=== PATIENT | female | born 1975 | race Caucasian/White ===

== ENCOUNTER 2019-11-04 15:49 | Emergency (ER) | payer OTHER, SELFPAY ==
--- NOTE | ~2019-11-04 | XR_ITS ---
XR lumbar spine 2-3V DATE: 11/04/2019 16:23 INDICATION: Patient fell down 4 steps. Mid low back pain. TECHNIQUE: AP, lateral, coned lateral lumbosacral views COMPARISON: 07/03/2018 CT lumbar spine FINDINGS: There is mild degenerative change, primarily mild to moderate degenerative disc disease at L1-2. There is degenerative spurring in the lower thoracic spine. No fracture or bone destruction or spondylolisthesis is evident. The lumbar and included lower thorac ic pedicles are intact. The sacroiliac joints are intact. Surgical clips overlie the right upper quadrant. IMPRESSION: Mild degenerative changes; no fracture detected Reviewed, dictated and finalized at location B. STITCHER
--- NOTE | 2019-11-04 16:00 | ED.FALL ---
HPI - Fall General Chief Complaint: Fall Stated Complaint: back pain Time Seen by Provider: 11/04/19 16:01 Source: patient and RN notes reviewed Mode of arrival: ambulatory Limitations: no limitations History of Present Illness HPI Narrative: This is a 44 years old female presents to the office for an evaluation of back pain s/p fall about 30minutes prior to arrival. She slipped on ice, on wooden stairs and injured her back. States, her lower back fell against the wooden stairs. 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 Denies urine or bowel incontinence. Denies numbness or tingling in the lower leg. Admits to history of recurrent chronic back pain controlled with Tylenol.She supposed to go to work at 5pm to day however she does not think she can go in.She works at the [employer]. No treatment prior to arrival. Related Data Home Medications Medication Instructions Recorded Confirmed bupropion HCl mg PO 10/16/19 ergocalciferol (vitamin D2) 10/16/19 levothyroxine 10/16/19 simvastatin mg 10/16/19 Allergies Allergy/AdvReac Type Severity Reaction Status Date / Time No Known Allergies Allergy Unverified 04/23/19 19:03 Review of Systems Review of Systems: Narrative: CONSTITUTIONAL: Denies feeling; except pain CARDIOVASCULAR: Denies chest pain RESPIRATORY: Denies difficulty breathing GASTROINTESTINAL: Denies nauseated feeling GENITOURINARY: Denies urinary/bowel symptoms SKIN: Denies skin trauma/bleeding MUSCULOSKELETAL: Reports acute back pain NEUROLOGIC: Denies lightheaded prior to accident PMFSH Past Medical History Medical History (Updated 11/04/19 @ 16:39 by SULEMAN Regalado) Hypothyroidism Mild intermittent asthma without complication Overweight (11/24/15) Plantar fasciitis, bilateral Vitamin D deficiency Surgical History Surgical History (Updated 11/04/19 @ 16:36 by SULEMAN Regalado) Hx of cholecystectomy Hx of hysterectomy Hx of tubal ligation Social History Social History Smoking status: Never smoker Alcohol intake: never Comments At time of signature, I agree with nursing past medical, surgical, social and family history. Exam Narrative: Exam Narrative: GENERAL: This is a well-nourished, well-developed patient, in no apparent distress. HEAD: Atraumatic. Normocephalic. No temporal or scalp tenderness. CARDIOVASCULAR: Regular rate and rhythm without murmurs, gallops, or rubs. RESPIRATORY: Clear to auscultation. Breath sounds equal bilaterally. No wheezes, rales, or rhonchi. SKIN: warm, intact with no suspicious lesions/bruise on affected area. NEURO: awake, alert, and oriented to person, place and time. There were no obvious focal neurologic abnormalities. Anatalgia gait noted BACK: Tenderness in the paraspinous muscles in the lumbar area. No tenderness over the spinous processes of the lumbar vertebrae. LEGS: Normal strength including dorsi-flexion and plantar flexion of the feet. Negative bilateral straight leg raising, normal and symmetrical knee reflexes. Course Vital Signs Vital signs: Vital Signs Temperature 98.8 F 11/04/19 16:01 Pulse Rate 98 11/04/19 16:01 Respiratory Rate 18 11/04/19 16:01 Blood Pressure 127/83 11/04/19 16:01 Pulse Oximetry 99 11/04/19 16:01 Temperature 98.8 F 11/04/19 16:01 Pulse Rate 98 11/04/19 16:01 Respiratory Rate 18 11/04/19 16:01 Blood Pressure 127/83 11/04/19 16:01 Pulse Oximetry 99 11/04/19 16:01 MDM - Fall MDM Narrative Medical decision making narrative: I offered Toradol for pain controlled; patient opt to take Tylenol instead. The instructions also include specific and strict return/GO TO THE ER as well as f/u information. All questions have been answered, and the patient deny any further questions with discharge and discharge plan. Differential Diagnosis Differential diagnosis: Likely compression fracture and other (M
[2019-11-04 16:01] VITALS: BP 127/83; PULSE 98; RESP 18; TEMP 37.1; O2SAT 99
[2019-11-04] MEDS: ACETAMINOPHEN 500 MG TABLET 1000 MG PO (16:28)
== END 2019-11-04 16:58 | disposition home or self-care (01) ==
PROVIDERS: Emergency Provider Nurse Practitioner; PCP Nurse Practitioner Family
DX: M54.5 Low back pain (principal); W00.1XXA Fall from stairs and steps due to ice and snow, initial encounter; E03.9 Hypothyroidism, unspecified; J45.20 Mild intermittent asthma, uncomplicated; M51.36 Other intervertebral disc degeneration, lumbar region; E55.9 Vitamin D deficiency, unspecified
CPT/HCPCS: 72100; 99213; A9270; G0463

== ENCOUNTER 2020-01-04 15:18 | Emergency (ER) | payer OTHER, SELFPAY ==
[2020-01-04 15:29] VITALS: BP 147/82; PULSE 87; RESP 20; TEMP 36.4; O2SAT 99
--- NOTE | 2020-01-04 16:01 | ED.GENADULT ---
HPI - General Adult General Chief complaint: Extremity Injury, Lower Stated complaint: L/knee pain Time Seen by Provider: 01/04/20 16:02 Source: patient and RN notes reviewed Mode of arrival: ambulatory Limitations: no limitations History of Present Illness HPI narrative: 44-year-old female presents with complains of left anterior knee pain and swelling for 1 day. Tylenol 500mG this morning with no relief. No radiation of pain. No numbness or tingling, or bleeding. No loss of mobility. Exacerbating factor consist of bearing weight, standing, and walking. No fever or chills. Denies nausea, vomiting, and abdominal pain. Remains active. Yazmin denies being , Hysterectomy 04/2006. Some parts of this dictation were generated by voice recognition software and may contain typographical and/or grammatical inaccuracies. Related Data Home Medications Medication Instructions Recorded Confirmed bupropion HCl 150 mg PO DAILY 10/16/19 01/04/20 ergocalciferol (vitamin D2) 50,000 unit PO DAILY 10/16/19 01/04/20 levothyroxine 25 mcg PO DAILY 10/16/19 01/04/20 simvastatin 20 mg PO DAILY 10/16/19 01/04/20 hydroxyzine pamoate 25 mg PO BID PRN 01/04/20 01/04/20 Allergies Allergy/AdvReac Type Severity Reaction Status Date / Time No Known Allergies Allergy Verified 01/04/20 15:34 Review of Systems Review of Systems: Narrative: CONSTITUTIONAL: Denies fever, chills, sweats. EYES: Denies visual changes, redness, discharge. ENT: Denies rhinorrhea, congestion, sore throat, otalgia. CARDIOVASCULAR: Denies chest pain, palpitations, edema. RESPIRATORY: Denies dyspnea, wheezing, cough. GASTROINTESTINAL: Denies abdominal pain, nausea, vomiting, diarrhea. GENITOURINARY: Denies dysuria, hematuria, abnormal discharge SKIN: Denies rash or itching. MUSCULOSKELETAL: Denies acute back pain or myalgia. Complains of Left anterior knee pain and swelling. NEUROLOGIC: Denies numbness, or focal weakness. PSYCHIATRIC: Denies anxiety or depression. All other systems reviewed & are unremarkable except as noted in HPI and below. [facility] Past Medical History Medical History Hypothyroidism Mild intermittent asthma without complication Overweight (11/24/15) Plantar fasciitis, bilateral Vitamin D deficiency Surgical History Surgical History Hx of cholecystectomy Hx of hysterectomy Hx of tubal ligation Family History Family History Sibling Family history of thyroid disease Patient's brother is Father Hypertension Cerebrovascular accident Mother Patient's mother is Other Family history of arthritis Family history of blood dyscrasia Family history of malignant neoplasm Family history of seizure disorder Social History Social History (Updated 01/04/20 @ 16:14 by SULEMAN Baldwin) Smoking status: Never smoker Second hand tobacco smoke exposure: Yes Alcohol intake: former Substance use: never Living arrangements: with family Occupation/Education: occupation Gender identity (if verbalized by the patient): Female Comments At time of signature, agree with nurse past medical, surgical, social, and family history. There is no relevant family history pertinent to the presenting complaint. Exam Narrative: Exam Narrative: GENERAL: This is a well-nourished, well-developed patient, in no apparent distress. Talks in full sentences and ambulates with LT antalgic gait without dyspnea. HEAD: normocephalic, atraumatic. EYES: PERRL. Sclera clear/white. Vision is grossly intact. CARDIOVASCULAR: Regular rate and rhythm without murmurs, gallops, or rubs. RESPIRATORY: Clear to auscultation. Breath sounds equal bilaterally. No wheezes, rales, or rhonchi. GASTROINTESTINAL: Abdomen soft, non-tender, nondistende
== END 2020-01-04 16:29 | disposition home or self-care (01) ==
PROVIDERS: Emergency Provider Nurse Practitioner Family; PCP Nurse Practitioner Family
DX: M25.562 Pain in left knee (principal); E03.9 Hypothyroidism, unspecified; E55.9 Vitamin D deficiency, unspecified
CPT/HCPCS: 99213; G0463

== ENCOUNTER 2020-03-09 19:48 | Emergency (ER) | payer OTHER, SELFPAY ==
--- NOTE | ~2020-03-09 | XR_ITS ---
EXAMINATION: XR chest 2V DATE: 03/09/2020 20:10 INDICATION: Left chest pain. TECHNIQUE: Frontal and lateral views of the chest were obtained. COMPARISON: Chest single view 08/08/2018, CT thoracic spine 07/03/2018 FINDINGS: The chest demonstrates clear lungs without pneumonia, pleural effusion, or pneumothorax. Th e heart size is normal. Surgical clips in the right upper quadrant are likely from cholecystectomy. IMPRESSION: 1. No acute cardiopulmonary disease. Reviewed, dictated and finalized at location A.
--- NOTE | 2020-03-09 19:49 | ECG_ITS ---
Measurements Intervals [place] Rate: 70 P: 18 RI: 149 QRS: 11 QRSD: 86 T: 29 QT: 347 QTc: 377 Interpretive Statements SINUS RHYTHM BASELINE WANDER- II, III NORMAL ECG Electronically Signed On 03-10-2020 6:59:12 CDT by Gray Nelson D.O.
[2020-03-09 19:51] VITALS: BP 117/75; PULSE 79; RESP 16; TEMP 36.3; O2SAT 100
[2020-03-09] MEDS: ASPIRIN 81 MG CHEWABLE TABLET 324 MG PO (20:04)
[2020-03-09 20:06] LABS: Basophils Percent Auto 0.5 % (0.2-1.2); Eosinophils Absolute Auto 0.2 K/mm3 (0-0.3); Eosinophils Percent Auto 2.2 % (0-4.4); Hematocrit 44.6 % (37.0-47.0); Immature Granulocyte Absolute 0.01 K/mm3 (0.00-0.031); Immature Granulocyte Percent A 0.1 % (0-0.5); Lymphocytes Absolute Auto 2.85 K/mm3 (0.9-3.2); Lymphocytes Percent Auto 32.5 % (18.3-44.2); Mean Corpuscular HGB Conc 31.4 g/dl (32-36); Mean Corpuscular Hemoglobin 29.9 pg (26-34); Mean Corpuscular Volume 95.1 fl (80-100); Monocytes Absolute Auto 0.5 K/mm3 (0.1-0.6); Monocytes Percent Auto 6.1 % (2.6-8.5); Neutrophils Absolute Auto 5.1 K/mm3 (1.3-6.7); Neutrophils Percent Auto 58.6 % (45.5-73.1); Platelet Count Result 363 k/mm3 (150-375); Red Blood Count 4.69 M/mm3 (4.2-5.4); Red Cell Distribution Width 13.9 % (11.5-14.5); White Blood Count 8.8 K/mm3 (4.5-10.0)
[2020-03-09 20:16] LABS: Partial Thromboplastin Time 27.8 SECONDS (22.3-36.8)
[2020-03-09 20:19] LABS: Blood Urea Nitrogen 14 mg/dL (7-17); Calcium 11.2 mg/dL (8.4-10.2); Carbon Dioxide 28 mmol/L (22-30); Chloride 105 mmol/L (98-107); Estimated Glomerular Filt Rate > 60; Glucose 97 mg/dL (65-105); Potassium 4.9 mmol/L (3.4-5.0); Sodium 138 mmol/L (137-145)
[2020-03-09 20:21] LABS: INR 0.9; Prothrombin Time 11.6 Seconds (11.1-14.7)
[2020-03-09 20:30] LABS: Troponin I < 0.012 ng/mL (0.000-0.034)
--- NOTE | 2020-03-09 21:49 | ED.CHESTPAIN ---
HPI - Chest Pain General Chief Complaint: Chest Pain Stated Complaint: arm and chest pain Time Seen by Provider: 03/09/20 21:49 Related Data Home Medications Medication Instructions Recorded Confirmed bupropion HCl 150 mg PO DAILY 10/16/19 01/04/20 ergocalciferol (vitamin D2) 50,000 unit PO DAILY 10/16/19 01/04/20 levothyroxine 25 mcg PO DAILY 10/16/19 01/04/20 simvastatin 20 mg PO DAILY 10/16/19 01/04/20 hydroxyzine pamoate 25 mg PO BID PRN 01/04/20 01/04/20 Allergies Allergy/AdvReac Type Severity Reaction Status Date / Time No Known Allergies Allergy Verified 01/04/20 15:34 [facility] Social History Social History (Updated 01/04/20 @ 16:14 by SULEMAN Baldwin) Smoking status: Never smoker Second hand tobacco smoke exposure: Yes Alcohol intake: former Substance use: never Gender identity (if verbalized by the patient): Female Course Vital Signs Vital signs: Vital Signs Temperature 36.3 C L 03/09/20 19:51 Pulse Rate 79 03/09/20 19:51 Respiratory Rate 16 03/09/20 19:51 Blood Pressure 117/75 03/09/20 19:51 Pulse Oximetry 100 03/09/20 19:51 Temperature 36.3 C L 03/09/20 19:51 Pulse Rate 79 03/09/20 19:51 Respiratory Rate 16 03/09/20 19:51 Blood Pressure 117/75 03/09/20 19:51 Pulse Oximetry 100 03/09/20 19:51 MDM - Chest Pain Lab Data Result diagrams: 03/09/20 20:00 03/09/20 20:00 Labs: Lab Results 03/09/20 03/09/20 03/09/20 Range/Units 20:00 20:00 20:00 WBC 8.8 (4.5-10.0) K/mm3 RBC 4.69 (4.2-5.4) M/mm3 Hgb 14.0 (12.0-15.0) g/dL Hct 44.6 (37.0-47.0) % MCV 95.1 (80-100) fl MCH 29.9 (26-34) pg MCHC 31.4 L (32-36) g/dl RDW 13.9 (11.5-14.5) % Plt Count 363 (150-375) k/mm3 MPV 9.0 (7.4-10.4) fl Immature Gran % (Auto) 0.1 (0-0.5) % Neut % (Auto) 58.6 (45.5-73.1) % Lymph % (Auto) 32.5 (18.3-44.2) % Price % (Auto) 6.1 (2.6-8.5) % Eos % (Auto) 2.2 (0-4.4) % Baso % (Auto) 0.5 (0.2-1.2) % Lymph # (Auto) 2.85 (0.9-3.2) K/mm3 Price # (Auto) 0.5 (0.1-0.6) K/mm3 Eos # (Auto) 0.2 (0-0.3) K/mm3 Baso # (Auto) 0.0 (0.0-0.1) K/mm3 Abs Immat Gran (auto) 0.01 (0.00-0.031) K/mm3 Absolute Neuts (auto) 5.1 (1.3-6.7) K/mm3 Absolute Nucleated RBC 0.0 (0.0-0.012) K/mm3 Nucleated RBC % 0.0 (0.0-0.2) % PT 11.6 (11.1-14.7) Seconds INR 0.9 APTT 27.8 (22.3-36.8) SECONDS Sodium 138 (137-145) mmol/L Potassium 4.9 (3.4-5.0) mmol/L Chloride 105 (98-107) mmol/L Carbon Dioxide 28 (22-30) mmol/L BUN 14 (7-17) mg/dL Creatinine 0.90 (0.7-1.0) mg/dL Estim Creat Clear Calc Not Reportable Estimated GFR > 60 (59 - ) Glucose 97 (65-105) mg/dL Calcium 11.2 H (8.4-10.2) mg/dL Troponin I < 0.012 (0.000-0.034) ng/mL ECG Data EKG #1: ECG completion date: 03/09/20 ECG completion time: 19:59 Interpretation: Rate 70, sinus rhythm, intervals normal, normal axis, no ST segment elevation or depression, baseline wander lead II, 3, normal EKG Discharge Plan Discharge Prescriptions: No Action levothyroxine 25 mcg tablet 25 mcg PO DAILY RF: 0 simvastatin 20 mg tablet 20 mg PO DAILY RF: 0 ergocalciferol (vitamin D2) 1,250 mcg (50,000 unit) capsule 50,000 unit PO DAILY RF: 0 bupropion HCl 150 mg tablet extended release 24 hr 150 mg PO DAILY RF: 0 hydroxyzine pamoate 25 mg Capsule 25 mg PO BID PRN (Reason: Anxiety) RF: 0
--- NOTE | 2020-03-09 21:57 | ED.CHESTPAIN ---
HPI - Chest Pain General Chief Complaint: Chest Pain <ROBSON Ng Last Filed: 03/09/20 22:02> Stated Complaint: arm and chest pain <ROBSON Ng Last Filed: 03/09/20 22:02> Time Seen by Provider: 03/09/20 21:49 <ROBSON Ng Last Filed: 03/09/20 22:02> Source: patient <ROBSON Ng Last Filed: 03/09/20 22:02> Mode of arrival: ambulatory <ROBSON Ng Last Filed: 03/09/20 22:02> Limitations: no limitations <ROBSON Ng Last Filed: 03/09/20 22:02> History of Present Illness HPI narrative: Patient is a 45-year-old female who presents to emergency department for evaluation of left-sided chest pain and arm pain for the last 2 days noting aching pain worse with activity and movement 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 Pain is worse with position activity and movement is noted patient denies any cardiac history has not taken anything for her symptoms. . On arrival patient in the room in no distress denies radicular symptoms or paresthesias or any recent illness or sick contact <ROBSON Ng Last Filed: 03/09/20 22:02> Related Data Home Medications: Home Medications Medication Instructions Recorded Confirmed bupropion HCl 150 mg PO DAILY 10/16/19 01/04/20 ergocalciferol (vitamin D2) 50,000 unit PO DAILY 10/16/19 01/04/20 levothyroxine 25 mcg PO DAILY 10/16/19 01/04/20 simvastatin 20 mg PO DAILY 10/16/19 01/04/20 hydroxyzine pamoate 25 mg PO BID PRN 01/04/20 01/04/20 <ROBSON Ng Last Filed: 03/09/20 22:02> Allergies/Adverse Reactions: Allergies Allergy/AdvReac Type Severity Reaction Status Date / Time No Known Allergies Allergy Verified 01/04/20 15:34 <ROBSON Ng Last Filed: 03/09/20 22:02> Review of Systems Review of Systems: All systems reviewed & are unremarkable except as noted in HPI and below <Dennis Delgado PA-C - Last Filed: 03/09/20 22:02> [facility] Past Medical History Medical History: Medical History Hypothyroidism Mild intermittent asthma without complication Overweight (11/24/15) Plantar fasciitis, bilateral Vitamin D deficiency <Dennis Delgado PA-C - Last Filed: 03/09/20 22:02> Surgical History Surgical History: Surgical History Hx of cholecystectomy Hx of hysterectomy Hx of tubal ligation <Dennis Delgado PA-C - Last Filed: 03/09/20 22:02> Social History Social History: Social History Smoking status: Never smoker Second hand tobacco smoke exposure: Yes Alcohol intake: former Substance use: never Gender identity (if verbalized by the patient): Female <Dennis Delgado PA-C - Last Filed: 03/09/20 22:02> Exam Narrative: Exam Narrative: GENERAL: Well-appearing, well-nourished, and in no acute distress. HEAD: Normocephalic, atraumatic. EYES: PERRLA and EOMI. ENT: Nares clear, no rhinorrhea or epistaxis. Mucous membranes moist. Oropharynx without tonsillar hypertrophy exudate or other lesions. CHEST: Clear to auscultation. No respiratory distress. No wheezes rales or rhonchi. Reproducible left chest wall tenderness to palpation HEART: Regular rate and rhythm. No murmur heard. Normal peripheral pulses. ABDOMEN: Soft, nontender, nondistended, normal active bowel sounds. EXTREMITIES: Normal range of motion. No edema. SKIN: Warm, dry, no rash. NEURO: No focal deficits. Alert and oriented x3. Cranial nerves II through XII grossly intact PSYCH: Normal mood and affect. <Dennis Delgado PA-C - Last Filed: 03/09/20 22:02> Course Course Emergency Course: Patient in the room at this time in no distress aware of case findings treatment plan and diagnosis <Dennis Delgado PA-C - Last Filed: 03/09/20 22:02> Vital Sign
[2020-03-09] MEDS: KETOROLAC (*BKC) 60 MG/2 ML VIAL IM (22:03)
== END 2020-03-09 22:45 | disposition home or self-care (01) ==
PROVIDERS: Emergency Provider Emergency Medicine; PCP Nurse Practitioner Family
DX: R07.9 Chest pain, unspecified (principal); E03.9 Hypothyroidism, unspecified; J45.20 Mild intermittent asthma, uncomplicated; E55.9 Vitamin D deficiency, unspecified; Z77.22 Contact with and (suspected) exposure to environmental tobacco smoke (acute) (chronic)
CPT/HCPCS: 36415; 71046; 80048; 84484; 85025; 85610; 85730; 93005; 96372; 99284; A9270; J1885

== ENCOUNTER 2020-03-13 08:38 | Emergency (ER) | payer OTHER, SELFPAY ==
[2020-03-13 08:40] VITALS: BP 134/79; PULSE 97; RESP 20; TEMP 36.6; O2SAT 97
--- NOTE | 2020-03-13 08:45 | ECG_ITS ---
Measurements Intervals [place] Rate: 73 P: 19 UT: 164 QRS: 5 QRSD: 90 T: 35 QT: 363 QTc: 402 Interpretive Statements SINUS RHYTHM DELAYED PRECORDIAL R/S TRANSITION BORDERLINE ECG Electronically Signed On 03-13-2020 16:47:37 CDT by Gray Nelson D.O.
[2020-03-13 08:57] LABS: Basophils Absolute Auto 0.02 K/mm3 (0.00-0.10); Basophils Percent Auto 0.3 % (0.0-1.0); Eosinophils Absolute Auto 0.11 K/mm3 (0.02-0.50); Eosinophils Percent Auto 1.7 % (1.0-6.0); Hematocrit 46.3 % (35.0-49.0); Hemoglobin 14.8 g/dL (12.0-15.0); Immature Granulocyte Absolute 0.02 K/mm3 (0.00-0.00); Immature Granulocyte Percent A 0.3 % (0.0-0.0); Lymphocytes Absolute Auto 1.61 K/mm3 (1.10-4.50); Lymphocytes Percent Auto 24.9 % (18.0-42.0); Mean Corpuscular Volume 93.9 fL (78.0-102.0); Monocytes Absolute Auto 0.39 K/mm3 (0.10-0.90); Neutrophils Absolute Auto 4.3 K/mm3 (1.7-7.2); Neutrophils Percent Auto 66.8 % (50.0-70.0); Platelet Count Result 354 K/mm3 (150-420); Red Blood Count 4.93 M/mm3 (4.20-5.40); Red Cell Distribution Width 13.3 % (11.6-14.4); White Blood Count 6.5 K/mm3 (4.8-10.8)
--- NOTE | 2020-03-13 09:02 | ED.CHESTPAIN ---
HPI - Chest Pain General Chief Complaint: Chest Pain Stated Complaint: Chest Pain Source: patient and RN notes reviewed Mode of arrival: ambulatory Limitations: no limitations History of Present Illness HPI narrative: Patient is here with complaints of left chest and arm pain for the last 6 days . Seen at [place] [facility] with a negative cardiac work up 4 days ago , has not picked up her scripts yet complaint: chest pain Onset: during rest and during exertion Pain radiation: left arm Related Data Home Medications Medication Instructions Recorded Confirmed Unable to Obtain Home Medications 03/13/20 03/13/20 bupropion HCl 150 mg PO BID 03/13/20 03/13/20 levothyroxine 25 mcg PO DAILY 03/13/20 03/13/20 simvastatin 20 mg PO DAILY 03/13/20 03/13/20 Allergies Allergy/AdvReac Type Severity Reaction Status Date / Time No Known Allergies Allergy Verified 03/13/20 08:56 Review of Systems Review of Systems: All systems reviewed & are unremarkable except as noted in HPI and below Constitutional: Constitutional: Reports as per HPI Cardiovascular: Cardiovascular: Reports as per HPI, Reports no additional cardiovascular complaints and Reports chest pain Respiratory: Respiratory: Reports no additional respiratory complaints Gastrointestinal: Gastrointestinal: Reports no additional gastrointestinal complaints Musculoskeletal: Musculoskeletal: Reports no additional musculoskeletal complaints [facility] Past Medical History Medical History (Updated 03/13/20 @ 10:22 by Nyasia Baig MD) Hypercholesteremia Hypothyroidism Social History Social History (Updated 03/13/20 @ 10:07 by Nyasia Baig MD) Social History: Nonsmoker . Lives alone Smoking status: Never smoker Substance use: unknown Living arrangements: alone Exam Const: General: no acute distress and alert Orientation/consciousness: patient oriented x3 HENMT: Head: normal to inspection Neck: Neck: normal visual inspection and no lymphadenopathy Chest: Chest palpation & inspection: normal inspection of the chest and tenderness pectoral muscle and costochondral junction Resp: Effort & Inspection: normal respiratory effort Auscultation: clear to auscultation bilaterally Cardio: Rate: regular rate Rhythm: regular rhythm GI: Auscultation: normal bowel sounds Skin: General skin exam: normal color Rashes: no rashes Neuro: General: patient oriented x3, moves all extremities, no focal motor deficits and CN's II-XI intact bilaterally Speech: normal speech Gait exam (Neuro): Normal gait present Psych: Appearance: grossly normal Mental Status: mental status grossly normal Affect: Anxious affect present Thought content: Yes Normal thought content present Course Course Emergency Course: Patient has some relief after toradol . She is aware of the discharge plans. Reevaluation(s) Reevaluation #1: Pain better . Date: 03/13/20 Time: 10:15 Vital Signs Vital signs: Vital Signs Temperature 36.6 C 03/13/20 08:40 Pulse Rate 97 03/13/20 08:40 Respiratory Rate 20 03/13/20 08:40 Blood Pressure 134/79 03/13/20 08:40 Pulse Oximetry 97 03/13/20 08:40 Temperature 37.1 C 03/13/20 10:17 Pulse Rate 86 03/13/20 10:17 Respiratory Rate 20 03/13/20 10:17 Blood Pressure 140/73 03/13/20 10:17 Pulse Oximetry 98 03/13/20 10:17 MDM - Chest Pain Differential Diagnosis Differential diagnosis: Likely stable angina, atypical chest pain and chest pain Medical Records Data Attestation: I reviewed the patient's medical records. Lab Data Attestation: I reviewed the patient's lab results. Result diagrams: 03/13/20 08:50 03/13/20 08:50 Labs: Lab Results 03/13/20 03/13/20 03/13/20 Range/Units 08:45 08:50 08:50 WBC 6.5 (4.8-10.8) K/mm3 RBC 4.93 (4.20-5.40) M/mm3 Hgb 14.8 (12.0-15.0) g/dL Hct 46.3 (35.0-49.0) % MCV 93.9 (78.0-102.0) fL MCH 30.0 (27.0-31.0) pg MCHC 32.0
[2020-03-13 09:04] VITALS: PULSE 97
[2020-03-13 09:09] LABS: Magnesium 2.1 mg/dL (1.8-2.4)
[2020-03-13 09:09] LABS: Anion Gap 11.9 mmol/L (7-16); Blood Urea Nitrogen 19 mg/dL (7-18); Calcium 10.2 mg/dL (8.5-10.1); Carbon Dioxide 28 mmol/L (21-32); Chloride 101 mmol/L (98-108); Estimated Glomerular Filt Rate 47; Glucose 95 mg/dL (70-99); Osmolality Calculated 286 mOsm/kg (285-295); Potassium 3.9 mmol/L (3.5-5.1); Sodium 137 mmol/L (136-145); Troponin I < 0.02 ng/mL (0.00-0.056)
[2020-03-13 09:41] LABS: Add Urine Microscopic? YES; Appearance Urine Sl Cloudy (Clear); Bilirubin Urine 1+ (Negative); Blood Urine Negative (Negative); Color Urine Yellow (Yellow); Glucose Urine UA Negative (Negative); Ketones Urine Trace (Negative); Leukocyte Esterase Ur Negative LEU/UL (Negative); Nitrate Urine Negative (Negative); Protein Urine Trace (Negative); Specific Grav Ur >= 1.030 (1.010-1.020)
[2020-03-13 09:47] LABS: RBC Urine None seen /hpf (0-2); Squamous Epithelial Cell Urine Moderate /hpf (Few); WBC Urine None seen /hpf (0-3)
[2020-03-13 09:48] LABS: Bacteria Urine 1+ /hpf; Mucus Urine Moderate /lpf
[2020-03-13 10:02] LABS: Amphetamine Screen Urine Negative (Negative); Barbiturate Screen Urine Negative (Negative); Benzodiazepines Screen Urine Negative (Negative); Cannabinoid Screen Urine Negative (Negative); Cocaine Screen Urine Negative (Negative); Methadone Screen Urine Negative (Negative); Opiate Screen Urine Negative (Negative); Phencyclidine Screen Urine Negative (Negative)
[2020-03-13 10:17] VITALS: BP 140/73; PULSE 86; RESP 20; TEMP 37.1; O2SAT 98
== END 2020-03-13 10:24 | disposition home or self-care (01) ==
PROVIDERS: Emergency Provider Emergency Medicine; PCP Nurse Practitioner Family
DX: R07.9 Chest pain, unspecified (principal)
CPT/HCPCS: 36415; 80048; 80307; 81001; 83735; 84484; 85025; 93005; 96372; 99283; 99284

== ENCOUNTER 2020-03-24 16:13 | Outpatient (CLI) | payer OTHER, SELFPAY ==
--- NOTE | ~2020-03-24 | CT_ITS ---
EXAMINATION: CT brain wo con EXAM DATE: 03/24/2020 16:41 INDICATION: Nausea, non-remittent headaches with photosensitivity. TECHNIQUE: Spiral CT of the head was performed without contrast. Axial, coronal and sagittal images were reviewed. The dose-length product (DLP) for this examination was 529.67 mGy-cm. The exposure w as tailored according to patient size, and iterative reconstruction (ASIR) was used as additional dos e reduction technique. Comparison is made to prior examination from 08/08/2018. FINDINGS: There is no acute intraparenchymal hemorrhage. No evidence of intraparenchymal brain mass lesion. No evidence of acute infarction. There is no mass effect or midline shift. The ventricles are normal in size. There are no extra-axial collections. There are no acute calvarial fractures. T he orbits are unremarkable. Soft tissue is unremarkable. The visualized sinuses and mastoid air isabel ls are well aerated. IMPRESSION: No acute intracranial findings. Reviewed, dictated and finalized at location B.
== END 2020-03-24 16:14 | disposition home or self-care (01) ==
PROVIDERS: PCP Nurse Practitioner Family; Visit Provider Nurse Practitioner Family
DX: R51 Headache (principal)
CPT/HCPCS: 70450

== ENCOUNTER 2020-04-09 01:15 | Outpatient (CLI) | payer OTHER, SELFPAY ==
[2020-04-09 18:09] LABS: SARS-CoV-2 RNA PCR Negative
== END 2020-04-09 01:16 | disposition home or self-care (01) ==
LOC: ANHCOVIDDT 01:15
PROVIDERS: PCP Nurse Practitioner Family; Visit Provider Internal Medicine Gastroenterology
DX: Z01.812 Encounter for preprocedural laboratory examination (principal); Z11.59 Encounter for screening for other viral diseases
CPT/HCPCS: 87635; C9803; U0003

== ENCOUNTER 2020-04-12 02:45 | Day surgery (SDC) | payer OTHER, SELFPAY ==
[2020-04-06 14:00] VITALS: BMI 41.0
[2020-04-12 13:36] VITALS: BMI 41.1
[2020-04-12] MEDS: LACTATED RINGERS 1,000 ML 150 ML IV CONT (13:46)
--- NOTE | 2020-04-12 14:48 | WPDANESEPPF ---
Anes - Initial Pre Proc Eval Procedure: Operation Date: 04/12/20 14:15 Proposed Procedures p Esophagogastroduodenoscopy - Frederick Chadwick MD Date/Time: 04/12/20 14:48 Surgeon: Frederick Chadwick MD Pre Op Diagnosis: chest pain Patient Data Age: 45 Gender: F Height: 4 ft 9 in Weight: 86.2 kg Allergies Allergy/AdvReac Type Severity Reaction Status Date / Time No Known Allergies Allergy Verified 04/12/20 13:35 Home Medications Medication Instructions Recorded Confirmed Type bupropion HCl 150 mg PO DAILY 10/16/19 04/06/20 History ergocalciferol (vitamin D2) 50,000 unit PO WEEKLY 10/16/19 04/06/20 History levothyroxine 25 mcg PO DAILY 10/16/19 04/06/20 History simvastatin 20 mg PO DAILY 10/16/19 04/06/20 History hydroxyzine pamoate 25 mg PO BID PRN 01/04/20 04/06/20 History cyclobenzaprine 10 mg PO TID PRN #10 tablet 03/09/20 04/06/20 Rx bupropion HCl 150 mg PO BID 03/13/20 03/13/20 History levothyroxine 25 mcg PO DAILY 03/13/20 03/13/20 History simvastatin 20 mg PO DAILY 03/13/20 03/13/20 History ondansetron 8 mg disintegrating 8 mg PO Q8H 03/21/20 History tablet mecobalamin (vitamin B12) 1,000 mcg PO DAILY 04/06/20 04/06/20 History sumatriptan succinate 50 mg PO BID PRN 04/06/20 04/06/20 History Patient hx anesthesia problems: none Family hx anesthesia problems: none PMFSH Past Medical History Medical History Hypercholesteremia Hypothyroidism Hypothyroidism Mild intermittent asthma without complication Non-cardiac chest pain Obesity, morbid, BMI 40.0-49.9 Overweight (11/24/15) Plantar fasciitis, bilateral Vitamin D deficiency Surgical History Surgical History Hx of cholecystectomy Hx of hysterectomy Hx of tubal ligation Family History Family History Sibling Family history of thyroid disease Patient's brother is Father Hypertension Cerebrovascular accident Mother Patient's mother is Other Family history of arthritis Family history of blood dyscrasia Family history of malignant neoplasm Family history of seizure disorder Social History Social History Social History: Nonsmoker . Lives alone Smoking status: Never smoker Second hand tobacco smoke exposure: Yes Alcohol intake: former Substance use: unknown Gender identity (if verbalized by the patient): Female Anes - Eval Final PreProcedure Day of Procedure 04/12/20 14:48 Patient weight: morbidly obese Heart: regular rate and rhythm Lungs: clear to auscultation Airway: Mallampati scale class II Neurological: alert and oriented Last oral intake: >/= 8 hours ASA classification: III Emergent: no Anesthetic plan: proceed Anesthesia type and monitoring: general GIVS and standard monitoring Informed Consent: The patient's anesthetic plan and its attendant risks and benefits were discussed with the patient/family/POA. Questions were solicited and answers provided to the satisfaction of the patient/family/POA.
--- NOTE | 2020-04-12 14:55 | WPDHPUPDATE1 ---
History and Physical Update Update Date/Time: 04/12/20 14:55 History and Physical has been reviewed, including an updated exam of the patient. There are NO changes in the patient's condition. Risks, benefits, and alternatives have been discussed and questions answered. Patient agrees to proceed with procedure.
[2020-04-12 16:20] VITALS: BP 126/82; PULSE 82; RESP 27; O2SAT 98
[2020-04-12 16:30] VITALS: BP 116/75; PULSE 77; RESP 26; O2SAT 95
[2020-04-12 16:40] VITALS: BP 131/84; PULSE 77; RESP 26; O2SAT 100
--- NOTE | 2020-04-12 16:43 | SUR.PHASEII ---
Pt coughing. Denies SOB. Lungs clear to auscultation.
== END 2020-04-12 17:03 | disposition home or self-care (01) ==
PROVIDERS: PCP Nurse Practitioner Family; Visit Provider Internal Medicine Gastroenterology
PROC: 0DJ08ZZ Inspection of Upper Intestinal Tract, Via Natural or Artificial Opening Endoscopic (ICD-10-PCS; CPT 43235; principal; 2020-04-12 14:15)
DX: R07.89 Other chest pain (principal); K29.50 Unspecified chronic gastritis without bleeding; B96.81 Helicobacter pylori [H. pylori] as the cause of diseases classified elsewhere; E78.00 Pure hypercholesterolemia, unspecified; E03.9 Hypothyroidism, unspecified; J45.20 Mild intermittent asthma, uncomplicated; E55.9 Vitamin D deficiency, unspecified; E66.01 Morbid (severe) obesity due to excess calories; Z68.41 Body mass index [BMI] 40.0-44.9, adult
CPT/HCPCS: 43239; 87081; 88305; 88342; J7120

== ENCOUNTER 2020-07-26 15:18 | Emergency (ER) | payer OTHER, SELFPAY ==
--- NOTE | ~2020-07-26 | US_ITS ---
EXAMINATION:US venous doppler LE BI INDICATION:Shortness of breath TECHNIQUE: Multiple grayscale, color flow and Doppler images of the right and left lower extremity de ep venous systems were obtained and reviewed. COMPARISON:No prior studies for comparison. FINDINGS: The common femoral, superficial femoral and popliteal veins demonstrate normal respiratory variation, augmentation and compressibility. Color flow is also seen within the posterior tibial, pe roneal, greater saphenous and profunda veins. IMPRESSION: 1: No lower extremity deep venous thrombosis. Reviewed, dictated and finalized at location A.
--- NOTE | ~2020-07-26 | CT_ITS ---
EXAMINATION: CTA chest PE protocol DATE: 07/26/2020 18:11 CDT INDICATION: Chest pain. Elevated d-dimer. Pleuritic chest pain and shortness of breath. TECHNIQUE: Computed tomographic angiography (CTA) of the chest was performed with 100 mL Omnipaque-35 0 intravenous contrast. The dose-length product was 489.63 mGy-cm. Maximum intensity projection 3D-re constructions of the aorta and other arteries were constructed by the technologist on a separate work station. Automated exposure control and iterative reconstruction technique were employed. COMPARISON: Chest dated 07/26/2020. FINDINGS: Study is technically adequate without evidence for pulmonary embolism. Heart size normal. N o significant pleural or pericardial effusion. Surgical changes of gastric bypass surgery and cholecy stectomy. No focal airspace consolidation. No pneumothorax. No pulmonary nodules or masses. No acute osseous abnormality. No lytic or blastic lesions. No endobronchial lesions. IMPRESSION: 1. No evidence for pulmonary embolism. No acute cardiopulmonary disease. Reviewed, dictated and finalized at location A.
--- NOTE | ~2020-07-26 | XR_ITS ---
EXAMINATION: XR chest 2V 07/26/2020 17:05 INDICATION: Shortness of breath and chest tightness PROCEDURE: 2 view chest COMPARISON: Comparison to multiple prior studies sequentially, with oldest reviewed study dated . FINDINGS: The lungs are clear. The cardiomediastinal silhouette is within normal limits. There are no pleural effusions. There is no pneumothorax suspected. There are cholecystectomy clips. IMPRESSION: 1: NO ACUTE CARDIOPULMONARY DISEASE. Reviewed, dictated and finalized at location A.
[2020-07-26 15:20] VITALS: BP 159/78; PULSE 88; RESP 18; TEMP 36.1; O2SAT 100
[2020-07-26 16:19] VITALS: O2SAT 99
--- NOTE | 2020-07-26 16:33 | ECG_ITS ---
Measurements Intervals [place] Rate: 71 P: 23 [place]: 147 QRS: 28 QRSD: 89 T: 28 QT: 333 QTc: 364 Interpretive Statements SINUS RHYTHM BASELINE ARTIFACT- I, II, III, AVR, V1-V2 NORMAL ECG Electronically Signed On 07-26-2020 17:09:20 CDT by Gray Nelson D.O.
--- NOTE | 2020-07-26 16:39 | ED.SOB ---
HPI - SOB/Dyspnea General Chief Complaint: Shortness of Breath/Dyspnea Stated Complaint: sob Time Seen by Provider: 07/26/20 16:12 Source: patient Mode of arrival: ambulatory Limitations: no limitations History of Present Illness HPI Narrative: This is a 45-year-old female that presents the emergency department for shortness of breath x2 weeks. Reports shortness of breath upon exertion. Also reports pleuritic chest pain. Reports she was seen by her primary for this recently and started on an albuterol inhaler. Reports this does not help and it makes her feel jittery. Reports she recently had weight loss surgery a month ago. Denies fever, cough, lower extremity edema, or history of blood clots. Related Data Home Medications Medication Instructions Recorded Confirmed bupropion HCl 150 mg PO DAILY 10/16/19 04/06/20 ergocalciferol (vitamin D2) 50,000 unit PO WEEKLY 10/16/19 04/06/20 levothyroxine 25 mcg PO DAILY 10/16/19 04/06/20 simvastatin 20 mg PO DAILY 10/16/19 04/06/20 hydroxyzine pamoate 25 mg PO BID PRN 01/04/20 04/06/20 bupropion HCl 150 mg PO BID 03/13/20 03/13/20 levothyroxine 25 mcg PO DAILY 03/13/20 03/13/20 simvastatin 20 mg PO DAILY 03/13/20 03/13/20 ondansetron 8 mg disintegrating 8 mg PO Q8H 03/21/20 tablet mecobalamin (vitamin B12) 1,000 mcg PO DAILY 04/06/20 04/06/20 sumatriptan succinate 50 mg PO BID PRN 04/06/20 04/06/20 Allergies Allergy/AdvReac Type Severity Reaction Status Date / Time No Known Allergies Allergy Verified 07/26/20 16:20 Review of Systems Review of Systems: Narrative: CONSTITUTIONAL: Denies fever CARDIOVASCULAR: Reports pleuritic chest pain. Denies edema. RESPIRATORY: Reports dyspnea. Denies cough All systems reviewed & are unremarkable except as noted in HPI and below PMFSH Past Medical History Medical History (Updated 07/26/20 @ 19:33 by Cristy Weeks PA-C) Hypercholesteremia Hypothyroidism Hypothyroidism Mild intermittent asthma without complication Non-cardiac chest pain Obesity, morbid, BMI 40.0-49.9 Overweight (11/24/15) Plantar fasciitis, bilateral Vitamin D deficiency Surgical History Surgical History Hx of cholecystectomy Hx of hysterectomy Hx of tubal ligation Family History Family History Sibling Family history of thyroid disease Patient's brother is Father Hypertension Cerebrovascular accident Mother Patient's mother is Other Family history of arthritis Family history of blood dyscrasia Family history of malignant neoplasm Family history of seizure disorder Social History Social History Social History: Nonsmoker . Lives alone Smoking status: Never smoker Second hand tobacco smoke exposure: Yes Alcohol intake: former Substance use: unknown Gender identity (if verbalized by the patient): Female Exam Narrative: Exam Narrative: GENERAL: Well-appearing, obese, and in no acute distress. HEAD: Normocephalic, atraumatic. EYES: EOMI. CHEST: Clear to auscultation. No respiratory distress. No wheezes rales or rhonchi HEART: Regular rate and rhythm. No murmur heard. Normal peripheral pulses. ABDOMEN: Incision sites are well-healed EXTREMITIES: Normal range of motion. No edema or erythema. SKIN: Warm, dry, no rash. NEURO: No focal deficits. Alert and oriented x3. PSYCH: Normal mood and affect Course Vital Signs Vital signs: Vital Signs Temperature 97.0 F L 07/26/20 15:20 Pulse Rate 88 07/26/20 15:20 Respiratory Rate 18 07/26/20 15:20 Blood Pressure 159/78 H 07/26/20 15:20 Pulse Oximetry 100 07/26/20 15:20 Temperature 97.0 F L 07/26/20 15:20 Pulse Rate 88 07/26/20 15:20 Respiratory Rate 18 07/26/20 15:20 Blood Pressure 159/78 H 07/26/20 15:20 Pulse Oximetry 99 07/26/20 16:19
[2020-07-26 17:06] LABS: Basophils Percent Auto 0.1 % (0.2-1.2); Eosinophils Percent Auto 0.5 % (0-4.4); Hematocrit 43.1 % (37.0-47.0); Hemoglobin 14.1 g/dL (12.0-15.0); Immature Granulocyte Absolute 0.01 K/mm3 (0.00-0.031); Immature Granulocyte Percent A 0.1 % (0-0.5); Lymphocytes Absolute Auto 1.85 K/mm3 (0.9-3.2); Lymphocytes Percent Auto 24.9 % (18.3-44.2); Mean Corpuscular HGB Conc 32.7 g/dl (32-36); Mean Corpuscular Hemoglobin 30.8 pg (26-34); Mean Corpuscular Volume 94.1 fl (80-100); Mean Platelet Volume 10.3 fl (7.4-10.4); Monocytes Absolute Auto 0.5 K/mm3 (0.1-0.6); Monocytes Percent Auto 6.7 % (2.6-8.5); Neutrophils Percent Auto 67.7 % (45.5-73.1); Platelet Count Result 226 k/mm3 (150-375); Red Blood Count 4.58 M/mm3 (4.2-5.4); Red Cell Distribution Width 13.6 % (11.5-14.5); White Blood Count 7.4 K/mm3 (4.5-10.0)
[2020-07-26 17:12] LABS: Anion Gap 6 mmol/L (8-16); Blood Urea Nitrogen 14 mg/dL (7-17); Calcium 11.2 mg/dL (8.4-10.2); Carbon Dioxide 29 mmol/L (22-30); Chloride 104 mmol/L (98-107); Estimated Glomerular Filt Rate > 60; Glucose 99 mg/dL (65-105); Potassium 4.2 mmol/L (3.4-5.0); Prothrombin Time 12.5 Seconds (11.1-14.7); Sodium 139 mmol/L (137-145)
[2020-07-26 17:13] LABS: Partial Thromboplastin Time 28.1 SECONDS (22.3-36.8)
[2020-07-26 17:16] LABS: D Dimer 0.79 ug/mL (<0.48)
[2020-07-26 17:21] LABS: NT Pro B Type Natriuretic Pept 77 PG/ML (5-100)
[2020-07-26 17:24] LABS: Troponin I < 0.012 ng/mL (0.000-0.034)
[2020-07-26 18:30] VITALS: BP 133/81; PULSE 80; RESP 18; TEMP 36.8; O2SAT 99
[2020-07-26 19:56] VITALS: BP 128/80; PULSE 88; RESP 19; TEMP 36.7; O2SAT 99
== END 2020-07-26 19:57 | disposition home or self-care (01) ==
PROVIDERS: Physician Assistant; Emergency Provider Emergency Medicine; PCP Nurse Practitioner Family
DX: R06.02 Shortness of breath (principal); E78.00 Pure hypercholesterolemia, unspecified; E03.9 Hypothyroidism, unspecified; J45.20 Mild intermittent asthma, uncomplicated; E55.9 Vitamin D deficiency, unspecified
CPT/HCPCS: 36415; 71046; 71275; 80048; 83880; 84484; 85025; 85380; 85610; 85730; 93005; 93970; 99284; Q9967

== ENCOUNTER 2020-08-10 12:04 | Outpatient (CLI) | payer OTHER, SELFPAY ==
--- NOTE | ~2020-08-10 | MR_ITS ---
EXAMINATION: MR shoulder LT wo con DATE: 08/10/2020 13:22 INDICATION: Impingement syndrome at the left shoulder. TECHNIQUE: Magnetic resonance imaging (MRI) of the left shoulder was performed without intravenous co ntrast. Sequences included axial PD-weighted FS FSE, coronal oblique PD-weighted FS FSE, coronal obli que T2-weighted FS FSE, sagittal PD-weighted FS FSE, and sagittal T1-weighted SE. COMPARISON: None. FINDINGS: Coracoacromial arch: The acromion undersurface is curved in morphology (type II). The coracoacromial ligament is normal. M ild acromioclavicular osteoarthritis. Rotator cuff: Mild supraspinatus and infraspinatus tendinopathy without discrete tear. The subscapularis and teres minor tendons are normal. Normal rotator cuff muscle bulk and signal. Biceps tendon, glenoid labrum and glenohumeral cartilage: Long head of the biceps tendon is normal. Glenoid labrum is normal. Glenohumeral cartilage is normal. Fluid: Physiologic amount of fluid in the glenohumeral joint and biceps tendon sheath. No loose osteochondra l bodies. Small amount of fluid in the subacromial/subdeltoid bursa consistent with mild bursitis. Bones: Mild marrow edema underlying the anterior facet of the greater tuberosity likely related to the rotat or cuff disease. Otherwise normal marrow signal with no fracture or pathologic marrow replacing proce ss. IMPRESSION: 1. Mild supraspinatus and infraspinatus tendinopathy without discrete tear. 2. Mild subacromial/subdeltoid bursitis. Reviewed, dictated and finalized at location A. [facility]
== END 2020-08-10 12:05 | disposition home or self-care (01) ==
PROVIDERS: PCP Nurse Practitioner Family; Visit Provider Orthopaedic Surgery
DX: M75.42 Impingement syndrome of left shoulder (principal); M75.52 Bursitis of left shoulder
CPT/HCPCS: 73221

== ENCOUNTER 2021-02-19 14:54 | Emergency (ER) | payer OTHER, SELFPAY ==
[2021-02-19 15:07] VITALS: BP 100/65; PULSE 103; RESP 20; TEMP 36.4; O2SAT 100
--- NOTE | 2021-02-19 15:25 | ED.GENADULT ---
HPI - General Adult General Chief complaint: Nausea/Vomiting/Diarrhea Stated complaint: Throwing Up Time Seen by Provider: 02/19/21 15:26 Source: patient and RN notes reviewed Mode of arrival: ambulatory Limitations: no limitations History of Present Illness HPI narrative: 46-year-old female presents with complaints of vomiting, diarrhea, decrease appetite, and nausea for 1 day. Nausea, vomiting, and diarrhea without abdominal pain. No treatment. No abdominal pain or cramping. Exacerbating factors consist of eating and drinking. LBM prior to arrival to [facility], liquid stool without blood. Unable to report the number of diarrhea episodes due to the amount she had per Yazmin. Vomiting last episode at 14:00 without blood. Yazmin reports 4-5 episodes today. Denies fever. Denies headache, dizziness, back pain, and dysuria. Remains active. The patient reports she have not been diagnosed with COVID-19. The patient reports she is not waiting for the results of a COVID-19 lab test. The patient reports she do not have chills, weakness, or fatigue. The patient reports she do not have a new or worsening cough or shortness of breath. Denies chest pain. The patient reports she do not have any rhinorrhea, congestion, sore throat, loss of taste or smell. Denies recent traveling. Denies concerns for COVID-19 or exposures. At this time, patient is not suspected of having COVID-19. Some parts of this dictation were generated by voice recognition software and may contain typographical and/or grammatical inaccuracies. Related Data Home Medications Medication Instructions Recorded Confirmed mecobalamin (vitamin B12) 1,000 mcg PO DAILY 04/06/20 04/06/20 calcium citrate-vitamin D3 1 tablet PO DAILY 02/19/21 02/19/21 [Calcitrate-Vitamin D] conjugated estrogens [Premarin] 02/19/21 magnesium 02/19/21 mv,Ca,min-iron [id number] tablet PO 02/19/21 [Hair,Skin and Nails] [id number] fum-folic ac-om3 pkg PO 02/19/21 [Daily ] Allergies Allergy/AdvReac Type Severity Reaction Status Date / Time No Known Allergies Allergy Verified 02/19/21 15:15 Review of Systems Review of Systems: Narrative: CONSTITUTIONAL: Denies fever, chills, sweats. EYES: Denies visual changes, redness, discharge. ENT: Denies rhinorrhea, congestion, sore throat, otalgia. CARDIOVASCULAR: Denies chest pain, palpitations, edema. RESPIRATORY: Denies dyspnea, wheezing, cough. GASTROINTESTINAL: Denies abdominal pain. Complains of diarrhea, vomiting, nausea, and decrease appetite. GENITOURINARY: Denies dysuria, hematuria, abnormal discharge. SKIN: Denies rash or itching. MUSCULOSKELETAL: Denies acute back pain, joint pain, or myalgia. NEUROLOGIC: Denies numbness or focal weakness. PSYCHIATRIC: Denies anxiety or depression. All systems reviewed & are unremarkable except as noted in HPI and below. [facility] Past Medical History Medical History (Updated 02/20/21 @ 00:01 by Grant Danichelle) Hypercholesteremia Hypothyroidism Hypothyroidism Mild intermittent asthma without complication Non-cardiac chest pain Obesity, morbid, BMI 40.0-49.9 Overweight (11/24/15) Plantar fasciitis, bilateral Vitamin D deficiency Surgical History Surgical History Hx of cholecystectomy Hx of hysterectomy Hx of tubal ligation Family History Family History Sibling Family history of thyroid disease Patient's brother is Father Hypertension Cerebrovascular accident Mother Patient's mother is Other Family history of arthritis Family history of blood dyscrasia Family history of malignant neoplasm Family history of seizure disorder Social History Social History Social History: Nonsmoker . Lives alone Smoking status: Never smoker Sec
[2021-02-19] MEDS: ONDANSETRON HCL ODT 4 MG TABLET PO (15:48)
[2021-02-21 13:08] LABS: SARS-CoV-2 RNA PCR Negative
== END 2021-02-19 16:22 | disposition home or self-care (01) ==
PROVIDERS: Emergency Provider Nurse Practitioner Family; PCP Nurse Practitioner Family
DX: K52.9 Noninfective gastroenteritis and colitis, unspecified (principal); Z20.822 Contact with and (suspected) exposure to COVID-19; E78.00 Pure hypercholesterolemia, unspecified; E03.9 Hypothyroidism, unspecified
CPT/HCPCS: 99213; A9270; C9803; G0463; U0003; U0005

== ENCOUNTER 2021-06-24 09:00 | Emergency (ER) | payer OTHER, SELFPAY ==
[2021-06-24] VITALS (21 sets, daily range): BP systolic 98–135; BP diastolic 72–95; PULSE 66–90; RESP 11–20; TEMP 36.1; O2SAT 96–100
--- NOTE | ~2021-06-24 | XR_ITS ---
EXAMINATION: XR shoulder LT min 2V EXAM DATE: 06/24/2021 10:39 INDICATION: left shoulder pain from neck. History left rotator cuff surgery. TECHNIQUE: The following left shoulder projections obtained: frontal projection with internal rotatio n, frontal projection with external rotation, Grashey, and scapular Y view (4+ views). Comparison is made to prior examination from 07/07/2018. FINDINGS: No evidence of left shoulder rotator cuff calcific tendinosis. Mild acromioclavicular kiko nt primary osteoarthritis. The glenohumeral joint is unremarkable. There are no acute fractures or di slocations identified. There is no subcutaneous gas. The soft tissue is unremarkable. There are n o radiopaque foreign bodies. IMPRESSION: Mild left acromioclavicular joint osteoarthritis. Reviewed, dictated and finalized at location A.
--- NOTE | ~2021-06-24 | XR_ITS ---
EXAMINATION: XR_[id number]_CR EXAM DATE: 06/24/2021 10:39 INDICATION: Neck pain radiating down left arm. TECHNIQUE: Frontal and lateral projections of the cervical spine. Open-mouth odontoid projection. T here is no prior study for comparison. FINDINGS: There is mild cervical thoracic dextrocurvature, could be positional, mild scoliosis or mus manju spasm. There is no evidence of acute cervical fracture. The odontoid process is intact. Pre-den s space is normal. Prevertebral soft tissue is normal. There are no soft tissue abnormalities ident ified. Vertebral body and disc heights are well-maintained. The vertebral bodies are aligned. Mi ld cervical facet arthropathy. No significant stenosis suspected. Lung apices clear. IMPRESSION: 1. Mild cervical arthropathy. 2. Mild apparent cervical thoracic dextrocurvature. Reviewed, dictated and finalized at location A.
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
[2021-06-24] MEDS: HYDROcodone/acetaminophen (*CRX) 5-325 MG TABLET 1 TAB PO (10:41)
[2021-06-24] MEDS: CYCLOBENZAPRINE HCL 5 MG TABLET PO (10:41)
== END 2021-06-24 11:42 | disposition home or self-care (01) ==
PROVIDERS: Emergency Provider Nurse Practitioner; PCP Nurse Practitioner Family
DX: M54.12 Radiculopathy, cervical region (principal); E78.00 Pure hypercholesterolemia, unspecified; E03.9 Hypothyroidism, unspecified; J45.20 Mild intermittent asthma, uncomplicated; E55.9 Vitamin D deficiency, unspecified; M72.2 Plantar fascial fibromatosis; E66.3 Overweight; Z68.27 Body mass index [BMI] 27.0-27.9, adult; Z98.84 Bariatric surgery status; M19.012 Primary osteoarthritis, left shoulder
CPT/HCPCS: 72040; 73030; 99283; A9270

== ENCOUNTER 2021-10-01 18:46 | Emergency (ER) | payer OTHER, SELFPAY ==
[2021-10-01 18:54] VITALS: BP 118/67; PULSE 81; RESP 16; TEMP 36.3; O2SAT 99
--- NOTE | 2021-10-01 19:09 | ED.URI ---
HPI - URI/Sore Throat General Chief Complaint: Upper Respiratory Infection Stated Complaint: Lt Ear Pain,Sore Throat Time Seen by Provider: 10/01/21 18:57 Source: patient and RN notes reviewed Mode of arrival: ambulatory Limitations: no limitations History of Present Illness HPI Narrative: Patient presents today complaint of a 2-week history of sore throat and left ear pain. Denies fever, cough, congestion, rhinorrhea, or any additional symptoms. She currently rates her sore throat and ear pain 7/10 and has been taking Tylenol and using peroxide in her ear with some mild relief. MD elicited complaint: sore throat Related Data Home Medications Medication Instructions Recorded Confirmed mecobalamin (vitamin B12) 1,000 mcg PO DAILY 04/06/20 10/01/21 calcium citrate-vitamin D3 1 tablet PO DAILY 02/19/21 02/19/21 [Calcitrate-Vitamin D] magnesium 30 mg PO DAILY 02/19/21 10/01/21 mv,Ca,min-iron [id number]-IR-ocgnbs 1 tablet PO DAILY 02/19/21 10/01/21 [Hair,Skin and Nails] Allergies Allergy/AdvReac Type Severity Reaction Status Date / Time No Known Allergies Allergy Verified 10/01/21 18:57 Review of Systems Review of Systems: CONSTITUTIONAL: Denies body aches, fever, chills, or sweats. EYES: Denies visual changes, redness, or discharge. ENT: Denies rhinorrhea, congestion. + Sore throat, left ear pain CARDIOVASCULAR: Denies chest pain, palpitations, or edema. RESPIRATORY: Denies cough or dyspnea. GASTROINTESTINAL: Denies abdominal pain, nausea, vomiting, or diarrhea. GENITOURINARY: Denies dysuria or hematuria. SKIN: Denies rash, itching, or wounds. MUSCULOSKELETAL: Denies back pain, joint pain, or myalgia. NEUROLOGIC: Denies headache, numbness, tingling, or weakness. PSYCH: Denies depression or anxiety. [facility] Past Medical History Medical History Hypercholesteremia Hypothyroidism Hypothyroidism Mild intermittent asthma without complication Non-cardiac chest pain Obesity, morbid, BMI 40.0-49.9 Overweight (11/24/15) Plantar fasciitis, bilateral Vitamin D deficiency Surgical History Surgical History History of bariatric surgery Hx of cholecystectomy Hx of cholecystectomy Hx of hysterectomy Hx of tubal ligation Family History Family History Sibling Family history of thyroid disease Patient's brother is Father Hypertension Cerebrovascular accident Mother Patient's mother is Other Family history of arthritis Family history of blood dyscrasia Family history of malignant neoplasm Family history of seizure disorder Social History Social History Social History: Nonsmoker . Lives alone Smoking status: Never smoker Second hand tobacco smoke exposure: Yes Alcohol intake: former Substance use: unknown Gender identity (if verbalized by the patient): Female Comments At time of signature, I have reviewed and agree with nursing past medical, surgical, social and family history unless otherwise noted. Please see nursing chart for further information. There is no relevant family history pertinent to the presenting complaint Exam Narrative: GENERAL: Well-appearing, well-nourished, and in no acute distress. HEAD: Normocephalic, atraumatic. EYES: EOMI. No redness or drainage. Conjunctivae normal. ENT: Mucous membranes pink and moist. Nares clear. No rhinorrhea. TMs normal bilaterally. Canals normal bilaterally. Throat normal. Uvula midline. NECK: Normal AROM. Supple. No lymphadenopathy. CHEST: No respiratory distress. Clear to auscultation. HEART: Regular rate and rhythm. No murmur appreciated. Normal peripheral pulses. EXTREMITIES: Normal range of motion. No edema. SKIN: Warm, dry, no rash. Capillary refill n
== END 2021-10-01 19:34 | disposition home or self-care (01) ==
PROVIDERS: Emergency Provider Nurse Practitioner; PCP Nurse Practitioner Family
DX: H92.02 Otalgia, left ear (principal); J02.9 Acute pharyngitis, unspecified; E78.00 Pure hypercholesterolemia, unspecified; E03.9 Hypothyroidism, unspecified; J45.909 Unspecified asthma, uncomplicated; E55.9 Vitamin D deficiency, unspecified
CPT/HCPCS: 87081; 87880; 99213; G0463

== ENCOUNTER 2022-02-12 12:34 | Inpatient (IN) | payer OTHER, SELFPAY ==
--- NOTE | ~2022-02-12 | XR_ITS ---
EXAM: XR abdomen/kub 1V HISTORY: kidney stone COMPARISON: 12/06/2009. FINDINGS: Clear lung bases. Normal bowel gas pattern. Left upper quadrant suture material.: Cystecto my clips. No organomegaly. No abnormal abdominal calcification. Regional bones and soft tissues christiano l for age. IMPRESSION: Normal abdominal radiograph findings. Reviewed, dictated and finalized at location K.
--- NOTE | ~2022-02-12 | CT_ITS ---
EXAMINATION: CT abdomen pelvis wo con DATE: 02/12/2022 15:47 INDICATION: Left flank pain. TECHNIQUE: Computed tomography (CT) of the abdomen and pelvis was performed without intravenous contr ast. Automated exposure control and iterative reconstruction technique were employed. The dose-length product was 160.62 mGy-cm. COMPARISON: CT abdomen and pelvis 12/07/2009 FINDINGS: The visualized portions of the lung bases are clear without pneumonia or pleural effusion. The heart size is normal. No pericardial effusion. There are surgical changes of the stomach. The dayo er and spleen are normal. There are changes of cholecystectomy. The pancreas, adrenal glands, and rig ht kidney are normal. There is a 3 mm stone in left kidney. There is mild left hydronephrosis. There is a 5 mm stone in proximal left ureter. There are no dilated loops of bowel. The appendix is not vis ualized. There are no pathologically enlarged lymph nodes. There is no free intraperitoneal fluid. Th ere is mild thoracic spondylosis. IMPRESSION: 1. 5 mm stone in proximal left ureter with mild left hydronephrosis. 2. 3 mm nonobstructing left kidney stone. Reviewed, dictated and finalized at location B.
--- NOTE | ~2022-02-12 | XR_ITS ---
XR abdomen/kub 1V 02/14/2022 09:43 Indication: Low abdominal pain. Left internal ureteral stent placement. Procedure: KUB Comparison: 02/12/2022 Findings: Bowel gas pattern is nonobstructive. Left internal ureteral stent is present. There is a st one in the lower pole of the left kidney. There are cholecystectomy clips. No acute osseous abnormali ty. Impression: 1: Left nephrolithiasis with left internal ureteral stent in expected position. Reviewed, dictated and finalized at location A. Impression: 1: Left nephrolithiasis with left internal ureteral stent in expected position.
--- NOTE | ~2022-02-12 | XR_ITS ---
EXAMINATION: XR retrograde pyelo w/stent LT DATE: 02/13/2022 11:10 INDICATION: Left internal ureteral stent placement TECHNIQUE: Fluoroscopic images from a left internal ureteral stent placement are submitted for review . 31 seconds of fluoroscopy time. 7 fluoroscopic images FINDINGS: There is a left double-J internal ureteral stent projecting in expected position, with proximal [place] loop at the level of the renal pelvis and distal loop not visualized.. IMPRESSION: 1. Left internal ureteral stent placement. Please refer to real-time procedural findings for detail s. Reviewed, dictated and finalized at location A. IMPRESSION: 1. Left internal ureteral stent placement. Please refer to real-time procedur al findings for details.
[2022-02-12 13:11] VITALS: BP 105/78; PULSE 90; RESP 18; TEMP 36.6; O2SAT 100
[2022-02-12 13:42] LABS: Basophils Percent Auto 0.2 % (0.2-1.2); Eosinophils Percent Auto 0.2 % (0-4.4); Hematocrit 40.4 % (37.0-47.0); Immature Granulocyte Absolute 0.01 K/mm3 (0.00-0.031); Immature Granulocyte Percent A 0.1 % (0-0.5); Lymphocytes Absolute Auto 1.34 K/mm3 (0.9-3.2); Lymphocytes Percent Auto 16.3 % (18.3-44.2); Mean Corpuscular HGB Conc 32.2 g/dl (32-36); Mean Corpuscular Volume 96.2 fl (80-100); Mean Platelet Volume 8.7 fl (7.4-10.4); Monocytes Absolute Auto 0.4 K/mm3 (0.1-0.6); Monocytes Percent Auto 4.9 % (2.6-8.5); Neutrophils Absolute Auto 6.4 K/mm3 (1.3-6.7); Neutrophils Percent Auto 78.3 % (45.5-73.1); Platelet Count Result 223 k/mm3 (150-375); Red Cell Distribution Width 12.9 % (11.5-14.5); White Blood Count 8.2 K/mm3 (4.5-10.0)
[2022-02-12 13:58] LABS: Alanine Aminotransferase 21 U/L (6-35); Albumin Level 4.2 g/dL (3.5-5.1); Alkaline Phosphatase 98 U/L (38-126); Anion Gap 6 mmol/L (8-16); Aspartate Amino Transferase 27 U/L (14-36); Bilirubin,Total 0.6 mg/dL (0.2-1.3); Blood Urea Nitrogen 17 mg/dL (7-17); Calcium 10.3 mg/dL (8.4-10.2); Carbon Dioxide 27 mmol/L (22-30); Chloride 102 mmol/L (98-107); Estimated Glomerular Filt Rate > 60; Glucose 88 mg/dL (65-110); Potassium 4.3 mmol/L (3.4-5.0); Sodium 135 mmol/L (137-145)
--- NOTE | 2022-02-12 15:29 | ED.ABDPAIN ---
HPI - Abdominal Pain General Chief Complaint: Abdominal Pain Stated Complaint: Left Side Pain Time Seen by Provider: 02/12/22 14:44 Source: patient Mode of arrival: ambulatory History of Present Illness HPI narrative: 47 y/o female presents with left flank pain that started last night. Today it is wrapping around her left abdomen. No fever or chills. No n/v/d. She has not taken anything for pain at home. She is having hard time finding position of comfort. No chest pain. No cough or chest congestion. Related Data Home Medications Medication Instructions Recorded Confirmed mecobalamin (vitamin B12) 1,000 mcg PO DAILY 04/06/20 10/01/21 calcium citrate-vitamin D3 1 tablet PO DAILY 02/19/21 02/19/21 [Calcitrate-Vitamin D] magnesium 30 mg PO DAILY 02/19/21 10/01/21 mv,Ca,min-iron toss-SK-rtmjon 1 tablet PO DAILY 02/19/21 10/01/21 [Hair,Skin and Nails] Allergies Allergy/AdvReac Type Severity Reaction Status Date / Time ibuprofen Allergy Unknown Verified 02/12/22 16:00 Review of Systems Constitutional: Constitutional: Denies chills, Denies fever(s) and Denies weakness ENT: Denies dysphagia, Denies nasal congestion and Denies sore throat Cardiovascular: Cardiovascular: Denies chest pain Respiratory: Respiratory: Denies no additional respiratory complaints, Denies cough and Denies dyspnea Gastrointestinal: Gastrointestinal: Reports abdominal pain, Denies diarrhea, Denies nausea and Denies vomiting Genitourinary: Genitourinary: Denies hematuria, Denies nocturia, Denies dysuria and Reports flank pain Musculoskeletal: Musculoskeletal: Reports back pain, Denies myalgias and Denies arthralgias Integumentary/Breasts: Skin/Breast: Denies rash Neurologic: Denies vertigo, Denies dizziness, Denies syncope, Denies headache(s), Denies focal weakness and Denies numbness Psychiatric: Psychiatric: Denies anxiety and Denies depression Endocrine: Endocrine: Denies fatigue Hematologic/Lymphatic: Hematologic/Lymphatic: Reports no additional hematologic/lymphatic complaints Allergic/Immunologic: Allergic/Immunologic: Reports no additional allergic/immunologic complaints PMFSH Past Medical History Medical History Hypercholesteremia Hypothyroidism Hypothyroidism Mild intermittent asthma without complication Non-cardiac chest pain Obesity, morbid, BMI 40.0-49.9 Overweight (11/24/15) Plantar fasciitis, bilateral Vitamin D deficiency Surgical History Surgical History History of bariatric surgery Hx of cholecystectomy Hx of cholecystectomy Hx of hysterectomy Hx of tubal ligation Family History Family History Sibling Family history of thyroid disease Patient's brother is Father Hypertension Cerebrovascular accident Mother Patient's mother is Other Family history of arthritis Family history of blood dyscrasia Family history of malignant neoplasm Family history of seizure disorder Social History Social History Social History: Nonsmoker . Lives alone Smoking status: Never smoker Second hand tobacco smoke exposure: Yes Alcohol intake: former Substance use: unknown Gender identity (if verbalized by the patient): Female Exam Const: General: healthy appearing and no acute distress Orientation/consciousness: patient oriented x3 HENMT: Head: normal to inspection Eyes: Conjunctivae: conjunctivae normal Neck: Neck: normal visual inspection Chest: Chest palpation & inspection: normal inspection of the chest Resp: Effort & Inspection: normal respiratory effort Auscultation: clear to auscultation bilaterally, no rales, no rhonchi and no wheezes Cardio: Rate: regular rate Rhythm: regular rhythm GI: GI Palp: Yes S
[2022-02-12 15:47] LABS: Appearance Urine Slightly Cloudy (Clear); Bilirubin Urine Negative (Negative); Blood Urine 1+ (Negative); Glucose Urine UA Negative (Negative); Ketones Urine 2+ mg/dL (Negative); Leukocyte Esterase Ur 3+ LEU/UL (Negative); Nitrate Urine Positive (Negative); Protein Urine Negative (Negative); Urobilinogen Urine 0.2 mg/dL (<2.0)
[2022-02-12 15:49] LABS: Bacteria Urine 1+ /hpf; Mucus Urine Rare /lpf; Squamous Epithelial Cell Urine Few /hpf (Few); WBC Urine 31-50 /hpf
[2022-02-12] MEDS: SODIUM CHLORIDE 0.9% IV 1,000 ML 999 ML IV CONT (15:54)
[2022-02-12] MEDS: ONDANSETRON INJ 4 MG/2 ML VIAL IV PUSH (15:54)
[2022-02-12] MEDS: MORPHINE SULFATE (*CRX) 4 MG/ML INJ 2 MG IV PUSH (15:54)
[2022-02-12 15:59] LABS: Add Urine Microscopic? YES; Color Urine Light Yellow (Yellow)
[2022-02-12] MEDS: HYDROmorphone HCL INJ (*CRX) 1 MG/ML SYR IV PUSH (16:54)
[2022-02-12 21:43] VITALS: BP 110/74; PULSE 85; RESP 16; TEMP 36.9; O2SAT 99
[2022-02-12 22:17] VITALS: BMI 27.5
--- NOTE | 2022-02-12 22:25 | PM.IMHP ---
H&P: HPI History of Present Illness Date/Time: 02/12/22 21:50 Chief Complaint: Abdominal pain Narrative: 47-year-old female with past medical history of obesity status post sleeve gastrectomy May 2020 who presented to the ER with right-sided abdominal pain that started yesterday. Patient reported that the pain was crampy in nature and greater than a 10/10 in intensity. The pain was tucked up under her right rib cage. She had no associated nausea, vomiting, chest pain or shortness of breath. She denies any fevers or chills. She thought that the pain was due to the fact that she had not had a bowel movement in a couple of days. However, earlier today she had a somewhat firmer stool it was of normal volume. She had no hematochezia or melena. She has not had any dysuria, gross hematuria or change in urinary frequency. She reports that the pain improved down to a 5/10 in intensity after multiple doses of narcotics in the ER. She reports that she does not tolerate pain well. She reports that the pain is worse with movement and with palpation of her abdomen and CVA percussion. UA demonstrated positive nitrates 3+ esterase, 11-20 rbc's and 3150 wbc's with 1+ bacteria. CT of the abdomen pelvis without contrast demonstrated 5 mm proximal left ureter stone with mild left hydronephrosis and a 3 mm nonobstructing left kidney stone. She denies prior history of kidney stones. She does not have a family history kidney stones. She does drink 2 bottles of tea a day. Review of Systems Review of Systems: 12 systems were reviewed with pertinent positives and negatives per HPI. Except as documented in the HPI, all other systems were reviewed and are negative. [facility] Past Medical History Medical History (Updated 02/12/22 @ 23:20 by Hanane Morales DO) Hypercholesteremia Hypothyroidism Mild intermittent asthma without complication Obesity, morbid, BMI 40.0-49.9 With resolution of obesity after sleeve gastrectomy with BMI now 25 Plantar fasciitis, bilateral Vitamin D deficiency Surgical History Surgical History (Updated 02/12/22 @ 23:20 by Hanane Morales DO) History of sleeve gastrectomy (05/2020) History of total hysterectomy with bilateral salpingo-oophorectomy (BSO) (~2005) Due to endometriosis Hx of cholecystectomy (~2007) Hx of tubal ligation Family History Family History (Updated 02/12/22 @ 23:22 by Hanane Morales DO) Sibling , Due to house fire Hypothyroidism Father Hypertension Cerebrovascular accident, Onset Age: 48 Due to uncontrolled hypertension Seizure disorder As a result of CVA Mother , Due to house fire No problems noted. Other Family history of blood dyscrasia Family history of malignant neoplasm Social History Social History (Updated 02/12/22 @ 23:23 by Hanane Morales DO) Social History: The 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 She may drink an alcoholic beverage once every couple of months. Smoking packs per day: 0.5 Smoking cigarettes per day: 10.0 Years smoked: 10 Smoking pack-years: 5.00 Smoking status: Former smoker Tobacco type: cigarettes Second hand tobacco smoke exposure: Yes Smoking end date: 09/30/17 Alcohol intake: former Substance use: never Gender identity (if verbalized by the patient): Female Spiritual care concerns: No (Mormonism) Meds Home Medications and Allergies Home Medications Medication Instructions Recorded Confirmed Type mecobalamin (vitamin B12) 1,000 mcg PO DAILY 04/06/20 10/01/21 History calcium citrate-vitamin D3 1 tablet PO DAILY 02/19/21 02/19/21 History [Calcitrate-Vitamin D] magnesium 30 mg PO DAILY 02/19/21 10/01/21 History mv,Ca,min-iron [id number] 1 tablet PO DAILY 02/19/21 10/01/21 History [Hair,Skin and Nails] Allergies Allergy/AdvReac Type Severity Reaction Status Date / Time ibuprofen Allergy Unknown Verified
[2022-02-12 22:27] VITALS: BP 97/72; PULSE 66; RESP 18; TEMP 36.8; O2SAT 100
[2022-02-12 22:31] VITALS: BMI 25.3
[2022-02-12] MEDS: SODIUM CHLORIDE 0.9% IV 1,000 ML 125 ML IV CONT (23:15)
[2022-02-13] VITALS (13 sets, daily range): BP systolic 93–148; BP diastolic 61–106; PULSE 50–68; RESP 14–19; TEMP 35.8–36.9; O2SAT 95–100
[2022-02-13] MEDS: SODIUM CHLORIDE 0.9% IV 1,000 ML 999 ML IV CONT (00:36)
--- NOTE | 2022-02-13 07:21 | WPDURCON ---
Assessment and Plan Assessment and plan (1) Left ureteral calculus: Code(s): N20.1 - Calculus of ureter Status: Acute Assessment and Plan: Proceed with cystoscopy, left retrograde pyelogram, left ureteral stent placement at a minimum. Have discussed possible ureteroscopy with stone extraction but given her urine most likely that will need to be delayed for another time versus lithotripsy Urology Consult Note HPI Date Seen: 02/13/22 Time Seen: 07:21 Requesting Physician: Niki Christian DO Primary Care Provider: Kayla Berumen, [employer]-BC Consult Narrative Reason for consult: Left proximal ureteral calculus Narrative: Yazmin Nova is a 47 year old female with no prior history of stones who presented emergency room with left renal colic. Patient denies any fevers or dysuria. Evaluation the emergency room with a CT scan revealed a 5 mm proximal left ureteral calculus with mild hydro nephrosis. Patient's urinalysis did have nitrate and leukocyte esterase positive. Patient was admitted for pain control and further management. Review of Systems Review of Systems: All systems reviewed & are unremarkable except as noted in HPI and below PMFSH Past Medical History Medical History Hypercholesteremia Hypothyroidism Mild intermittent asthma without complication Obesity, morbid, BMI 40.0-49.9 With resolution of obesity after sleeve gastrectomy with BMI now 25 Plantar fasciitis, bilateral Vitamin D deficiency Surgical History Surgical History History of sleeve gastrectomy (05/2020) History of total hysterectomy with bilateral salpingo-oophorectomy (BSO) (~2005) Due to endometriosis Hx of cholecystectomy (~2007) Hx of tubal ligation Family History Family History Sibling , Due to house fire Hypothyroidism Father Hypertension Cerebrovascular accident, Onset Age: 48 Due to uncontrolled hypertension Seizure disorder As a result of CVA Mother , Due to house fire No problems noted. Other Family history of blood dyscrasia Family history of malignant neoplasm Social History Social History Social History: The 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 She may drink an alcoholic beverage once every couple of months. Smoking packs per day: 0.5 Smoking cigarettes per day: 10.0 Years smoked: 10 Smoking pack-years: 5.00 Smoking status: Former smoker Tobacco type: cigarettes Second hand tobacco smoke exposure: Yes Smoking end date: 09/30/17 Alcohol intake: former Substance use: never Gender identity (if verbalized by the patient): Female Spiritual care concerns: No (Adventism) Meds Home Medications and Allergies Home Medications Medication Instructions Recorded Confirmed Type mecobalamin (vitamin B12) 1,000 mcg PO DAILY 04/06/20 02/12/22 History calcium citrate-vitamin D3 1 tablet PO DAILY 02/19/21 02/12/22 History [Calcitrate-Vitamin D] magnesium 30 mg PO DAILY 02/19/21 02/12/22 History mv,Ca,min-iron [id number] 1 tablet PO DAILY 02/19/21 02/12/22 History [Hair,Skin and Nails] Allergies Allergy/AdvReac Type Severity Reaction Status Date / Time ibuprofen Allergy Unknown Verified 02/12/22 16:00 Vital Signs Vital Signs - 24 hr 02/12/22 13:11 02/12/22 21:43 02/12/22 22:27 Temperature 36.6 C 36.9 C 36.8 C Pulse Rate 90 85 66 Respiratory Rate 18 16 18 Blood Pressure 105/78 110/74 97/72 L Pulse Oximetry 100 99 100 02/13/22 04:00 Temperature 35.8 C L Pulse Rate 52 L Respiratory Rate 16 Blood Pressure 98/65 L Pulse Oximetry 100 Exam Const: General: cooperative and uncomfortable HENMT: Head: normal to inspection
--- NOTE | 2022-02-13 10:00 | WPDANESEPPF ---
Anes - Initial Pre Proc Eval Procedure: Operation Date: 02/13/22 10:30 Proposed Procedures p Cystoscopy,Left Retrograde Pyelogram,Possible Ureteroscopy - Raghavendra Nolasco MD Date/Time: 02/13/22 10:00 Surgeon: Niki Christian DO Pre Op Diagnosis: Ureteral Obstruction from Stone Patient Data Age: 47 Gender: F Height: 1.45 m Weight: 53.1 kg Last Vital Signs Temp 36.9 C 02/13/22 07:55 Pulse 53 L 02/13/22 07:55 Resp 18 02/13/22 07:55 BP 93/67 L 02/13/22 07:55 Pulse Ox 99 02/13/22 07:55 Allergies Allergy/AdvReac Type Severity Reaction Status Date / Time ibuprofen Allergy Unknown Verified 02/12/22 16:00 Home Medications Medication Instructions Recorded Confirmed Type mecobalamin (vitamin B12) 1,000 mcg PO DAILY 04/06/20 02/12/22 History calcium citrate-vitamin D3 1 tablet PO DAILY 02/19/21 02/12/22 History [Calcitrate-Vitamin D] magnesium 30 mg PO DAILY 02/19/21 02/12/22 History mv,Ca,min-iron [id number] 1 tablet PO DAILY 02/19/21 02/12/22 History [Hair,Skin and Nails] Laboratory Tests 02/12/22 02/12/22 02/12/22 13:29 13:29 15:40 WBC 8.2 K/mm3 K/mm3 (4.5-10.0) RBC 4.20 M/mm3 M/mm3 (4.2-5.4) Hgb 13.0 g/dL g/dL (12.0-15.0) Hct 40.4 % % (37.0-47.0) MCV 96.2 fl fl (80-100) MCH 31.0 pg pg (26-34) MCHC 32.2 g/dl g/dl (32-36) RDW 12.9 % % (11.5-14.5) Plt Count 223 k/mm3 k/mm3 (150-375) MPV 8.7 fl fl (7.4-10.4) Immature Gran % (Auto) 0.1 % % (0-0.5) Neut % (Auto) 78.3 % H % (45.5-73.1) Lymph % (Auto) 16.3 % L % (18.3-44.2) [place] % (Auto) 4.9 % % (2.6-8.5) Eos % (Auto) 0.2 % % (0-4.4) Baso % (Auto) 0.2 % % (0.2-1.2) Lymph # (Auto) 1.34 K/mm3 K/mm3 (0.9-3.2) [place] # (Auto) 0.4 K/mm3 K/mm3 (0.1-0.6) Eos # (Auto) 0.0 K/mm3 K/mm3 (0-0.3) Baso # (Auto) 0.0 K/mm3 K/mm3 (0.0-0.1) Abs Immat Gran (auto) 0.01 K/mm3 K/mm3 (0.00-0.031) Absolute Neuts (auto) 6.4 K/mm3 K/mm3 (1.3-6.7) Absolute Nucleated RBC 0.0 K/mm3 K/mm3 (0.0-0.012) Nucleated RBC % 0.0 % % (0.0-0.2) Sodium 135 mmol/L L mmol/L (137-145) Potassium 4.3 mmol/L mmol/L (3.4-5.0) Chloride 102 mmol/L mmol/L (98-107) Carbon Dioxide 27 mmol/L mmol/L (22-30) Anion Gap 6 mmol/L L mmol/L (8-16) BUN 17 mg/dL mg/dL (7-17) Creatinine 0.80 mg/dL mg/dL (0.7-1.0) Estim Creat Clear Calc Not Reportable Estimated GFR > 60 (59 - ) Glucose 88 mg/dL mg/dL (65-110) Calcium 10.3 mg/dL H mg/dL (8.4-10.2) Total Bilirubin 0.6 mg/dL mg/dL (0.2-1.3) AST 27 U/L U/L (14-36) ALT 21 U/L U/L (6-35) Alkaline Phosphatase 98 U/L U/L (38-126) Total Protein 8.0 g/dL g/dL (6.3-8.2) Albumin 4.2 g/dL g/dL (3.5-5.1) Urine Color Light yellow (Yellow) Urine Appearance Slightly cloudy (Clear) Urine pH 6.0 (5.0-9.0) Ur Specific [place] 1.010 (1.001-1.035) Urine Protein Negative mg/dL mg/dL (Negative) Urine Glucose (UA) Negative mg/dL mg/dL (Negative) Urine Ketones 2+ mg/dL H mg/dL (Negative) Ur Blood (Man) 1+ H (Negative) Urine Nitrate Positive H (Negative) Urine Bilirubin Negative (Negative) Urine Urobilinogen 0.2 mg/dL mg/dL (<2.0) Leukocyte Esterase Rfl 3+ CLARA/UL H CLARA/UL (Negative) Urine RBC 11-20 /hpf H /hpf (0-2) Urine WBC 31-50 /hpf H /hpf Ur Squamous Epith Cells Few /hpf /hpf (Few) Urine Bacteria 1+ /hpf H /hpf Urine Mucus Rare /lpf /lpf Patient hx anesthesia problems: none
--- NOTE | 2022-02-13 10:23 | WPDHPUPDATE1 ---
History and Physical Update Update Date/Time: 02/13/22 10:23 History and Physical has been reviewed, including an updated exam of the patient. There are NO changes in the patient's condition. Risks, benefits, and alternatives have been discussed and questions answered. Patient agrees to proceed with procedure. Proceed with cystoscopy, left retrograde pyelogram, left ureteral stent placement, possible ureteroscopy
[2022-02-13] MEDS: LIDOCAINE HCL 2% GEL UROJET 10 ML PKG MUCOUS MEM (10:46)
--- NOTE | 2022-02-13 11:06 | W.PM.PROC2 ---
Procedure Note - Detailed Date of Procedure 02/13/22 Pre-op Diagnosis Left proximal ureteral calculus with UTI Post-op Diagnosis Same Procedure Performed Cystoscopy, left retrograde pyelogram, left ureteral stent placement 4.8 Icelandic contour Surgeon Raghavendra Nolasco MD Anesthesia General Description of Procedure Patient is taken the operative suite correctly identified. Once anesthesia was obtained she was placed in dorsal lithotomy position and prepped and draped usual sterile fashion. Twenty-two Icelandic scope inserted the bladder. There was no tumors noted. It was difficult to cannulate the left ureteral orifice with a cystoscope. We thus placed a rigid ureteral scope into the bladder were able to direct the wire into the orifice. The wire was advanced up into the kidney. It did not trim eat any resistance at this time. A [place] was placed over the wire up into the renal pelvis and a pyelogram was performed to confirm placement of the stent. 4.8 [place]ic contour stent was then placed with the proximal end coiled in the renal pelvis and the distal in the bladder. Scope was removed 2% viscous lidocaine was inserted urethra patient is taken recovery stable condition. Will await urine culture. Will require repeat KUB and possibly CT once the contrast gets out of her system to evaluate the positioning of the stone. Drains Yes Packing No Pathology None sent Complications No immediate complications Condition Stable Disposition PACU
[2022-02-13] MEDS: LACTATED RINGERS 1,000 ML 30 ML IV CONT (11:10)
[2022-02-13] MEDS: fentaNYL CITRATE INJ (*CRX) 100 MCG/2 ML VIAL 25 MCG IV PUSH (12:03)
[2022-02-13] MEDS: HYDROmorphone HCL INJ (*CRX) 1 MG/ML SYR 0.5 MG IV PUSH ×2 (14:00→22:00)
--- NOTE | 2022-02-13 14:03 | PM.IMPN ---
Progress Note: A&P Assessment and Plan (1) Ureteral obstruction, left: Code(s): N13.5 - Crossing vessel and stricture of ureter without hydronephrosis Status: Acute (2) Hydronephrosis: Qualifiers: Hydronephrosis type: with renal calculous obstruction Qualified Code(s): N13.2 - Hydronephrosis with renal and ureteral calculous obstruction Code(s): N13.30 - Unspecified hydronephrosis Status: Acute (3) UTI (urinary tract infection): Qualifiers: Hematuria presence: with hematuria Urinary tract infection type: acute cystitis Qualified Code(s): N30.01 - Acute cystitis with hematuria Code(s): N39.0 - Urinary tract infection, site not specified Status: Acute Additional Plan Obstructing left proximal ureteral stone with mild hydronephrosis complicated by probable UTI with UA with nitrates leukocyte esterase and bacteria. Patient was started empiric antibiotic therapy with Rocephin. Urine cultures are pending. Urology has been consulted. The patient will be NPO at midnight for possible intervention. Will continue IV fluid hydration when will give additional fluid bolus as well as maintenance fluids. P.r.n. pain medications with Dilaudid 0.5 mg q.4 hours for severe pain and additional pain medications with Tylenol. P.r.n. Zofran has also been ordered. The patient has been encouraged to decrease her caffeine/tea consumption. She has been instructed to increase her water intake to at least 2 L a day. Patient has been admitted as observation status. 02/13/2022 interval history: patient with a left ureteral stone seen by urologist recommending cystoscopy and extraction of the stone placing a stent which is scheduled for later this more, patient to raise also suspicion for UTI being treated with ceftriaxone will follow-up on culture and sensitivity and further recommendation to follow. Subjective Date/time seen: 02/13/22 14:03 HPI-Narrative: 47-year-old female with past medical history of obesity status post sleeve gastrectomy May 2020 who presented to the ER with right-sided abdominal pain that started yesterday. Patient reported that the pain was crampy in nature and greater than a 10/10 in intensity. The pain was tucked up under her right rib cage. She had no associated nausea, vomiting, chest pain or shortness of breath. She denies any fevers or chills. She thought that the pain was due to the fact that she had not had a bowel movement in a couple of days. However, earlier today she had a somewhat firmer stool it was of normal volume. She had no hematochezia or melena. She has not had any dysuria, gross hematuria or change in urinary frequency. She reports that the pain improved down to a 5/10 in intensity after multiple doses of narcotics in the ER. She reports that she does not tolerate pain well. She reports that the pain is worse with movement and with palpation of her abdomen and CVA percussion. UA demonstrated positive nitrates 3+ esterase, 11-20 rbc's and 3150 wbc's with 1+ bacteria. CT of the abdomen pelvis without contrast demonstrated 5 mm proximal left ureter stone with mild left hydronephrosis and a 3 mm nonobstructing left kidney stone. She denies prior history of kidney stones. She does not have a family history kidney stones. She does drink 2 bottles of tea a day. 02/13/2022 interval history: patient with a left ureteral stone seen by urologist recommending cystoscopy and extraction of the stone placing a stent which is scheduled for later this more, patient to raise also suspicion for UTI being treated with ceftriaxone will follow-up on culture and sensitivity and further recommendation to follow. Review of Systems Review of Systems: All systems reviewed & are unremarkable except as noted in HPI and below Exam Narrative: Patient is comfortable, NAD HEENT: eyes are clear and none icteric LUNGS: normal respiratory effort ABD: distended Lower extremit
[2022-02-13] MEDS: SODIUM CHLORIDE 0.9% IV 1,000 ML 125 ML IV CONT (17:01)
[2022-02-14] MEDS: SODIUM CHLORIDE 0.9% IV 1,000 ML 125 ML IV CONT ×3 (02:42→19:01)
[2022-02-14 04:00] VITALS: BP 105/80; PULSE 62; RESP 18; TEMP 36.6; O2SAT 98
[2022-02-14 06:36] LABS: Hematocrit 34.6 % (37.0-47.0); Hemoglobin 11.1 g/dL (12.0-15.0); Mean Corpuscular HGB Conc 32.1 g/dl (32-36); Mean Corpuscular Hemoglobin 31.3 pg (26-34); Mean Corpuscular Volume 97.5 fl (80-100); Mean Platelet Volume 9.6 fl (7.4-10.4); Platelet Count Result 178 k/mm3 (150-375); Red Blood Count 3.55 M/mm3 (4.2-5.4); Red Cell Distribution Width 12.9 % (11.5-14.5); White Blood Count 6.3 K/mm3 (4.5-10.0)
[2022-02-14 06:56] LABS: Anion Gap 3 mmol/L (8-16); Blood Urea Nitrogen 9 mg/dL (7-17); Calcium 9.1 mg/dL (8.4-10.2); Carbon Dioxide 25 mmol/L (22-30); Chloride 108 mmol/L (98-107); Estimated Glomerular Filt Rate > 60; Glucose 87 mg/dL (65-110); Sodium 136 mmol/L (137-145)
--- NOTE | 2022-02-14 07:48 | WPDANESPN ---
Anes - Prog Note Post-Op Date/Time: 02/14/22 07:48 Cardiovascular status: normal Respiratory status: normal Airway patency: baseline Mental status: baseline Post-Op hydration status: normal Vital Signs: Last Vital Signs Temp 36.6 C 02/14/22 04:00 Pulse 62 02/14/22 04:00 Resp 18 02/14/22 04:00 BP 105/80 02/14/22 04:00 Pulse Ox 98 02/14/22 04:00 Pain Score (VAS): 0 I/O: Intake & Output 02/13/22 02/13/22 02/14/22 15:59 23:59 07:59 Intake Total 460 956 0436 Output Total 800 900 Balance 200 -150 300 Laboratory Tests 02/14/22 06:10 02/14/22 06:10 02/14/22 02/14/22 06:10 06:10 WBC 6.3 RBC 3.55 L Hgb 11.1 L Hct 34.6 L MCV 97.5 MCH 31.3 MCHC 32.1 RDW 12.9 Plt Count 178 MPV 9.6 Sodium 136 L Potassium 4.0 Chloride 108 H Carbon Dioxide 25 Anion Gap 3 L BUN 9 D Creatinine 0.60 L Estim Creat Clear Calc Not Reportable Estimated GFR > 60 Glucose 87 Calcium 9.1 Microbiology 02/12/22 15:40 Urine-Clean Catch Urine Culture - Preliminary Gram negative bacilli isolated Post-procedural complaints: none Patient Feedback: Patient satisfied with anesthetic care.
[2022-02-14 08:00] VITALS: BP 117/71; PULSE 58; RESP 20; TEMP 36.2; O2SAT 98
[2022-02-14] MEDS: HYDROmorphone HCL INJ (*CRX) 1 MG/ML SYR 0.5 MG IV PUSH (09:35)
[2022-02-14 11:54] VITALS: BP 113/77; PULSE 61; RESP 18; TEMP 36.9; O2SAT 98
--- NOTE | 2022-02-14 12:43 | PM.IMPN ---
Progress Note: A&P Assessment and Plan (1) Ureteral obstruction, left: Code(s): N13.5 - Crossing vessel and stricture of ureter without hydronephrosis Status: Acute Assessment and Plan: Per Urology, a stent placed (2) Hydronephrosis: Qualifiers: Hydronephrosis type: with renal calculous obstruction Qualified Code(s): N13.2 - Hydronephrosis with renal and ureteral calculous obstruction Code(s): N13.30 - Unspecified hydronephrosis Status: Acute Assessment and Plan: managed per Urology (3) UTI (urinary tract infection): Qualifiers: Hematuria presence: with hematuria Urinary tract infection type: acute cystitis Qualified Code(s): N30.01 - Acute cystitis with hematuria Code(s): N39.0 - Urinary tract infection, site not specified Status: Acute Assessment and Plan: IV antibiotics. E coli growing. Pansensitive. Subjective Date/time seen: 02/14/22 12:43 Patient is doing well today, no new complaints Review of Systems Review of Systems: All systems reviewed & are unremarkable except as noted in HPI and below Exam Narrative: Patient is comfortable, NAD HEENT: eyes are clear and none icteric LUNGS: normal respiratory effort ABD: distended Lower extremities: no edema SKIN: nonjaundiced Neuro: grossly intact. Objective Data Vital Signs Vital Signs: Vital Signs - 24 hr 02/13/22 13:30 02/13/22 13:45 02/13/22 14:15 Temperature 97.7 F 97.5 F L 97.6 F Pulse Rate 52 L 68 59 L Respiratory Rate 19 18 16 Blood Pressure 148/106 H 140/85 122/80 Pulse Oximetry 100 98 95 02/13/22 15:20 02/13/22 20:00 02/13/22 21:04 Temperature 97.4 F L 98.5 F Pulse Rate 64 50 L 58 L Respiratory Rate 18 16 Blood Pressure 121/69 116/74 Pulse Oximetry 97 98 97 02/14/22 04:00 02/14/22 08:00 02/14/22 11:54 Temperature 97.8 F 97.1 F L 98.5 F Pulse Rate 62 58 L 61 Respiratory Rate 18 20 18 Blood Pressure 105/80 117/71 113/77 Pulse Oximetry 98 98 98 Intake/Output Intake/Output: Intake & Output 02/11/22 02/12/22 02/13/22 02/14/22 23:59 23:59 23:59 23:59 Intake Total 1350 2850 2300 Output Total 800 900 Balance 1350 2050 1400 Meds/Results Medications: Active Medications Generic Name Dose Route Start Last Admin Trade Name Freq PRN Reason Stop Dose Admin Acetaminophen 650 mg 02/12/22 19:43 Acetaminophen 325 Mg Tablet PO Q4H PRN Mild Pain (1-3) or Fever Fentanyl Citrate 25 mcg 02/13/22 10:00 02/13/22 12:03 Fentanyl Citrate Inj (*Crx) 100 Mcg/2 Ml Vial IV PUSH 25 mcg Q2M PRN Administration Pain Hydromorphone HCl 0.5 mg 02/12/22 17:30 02/14/22 09:35 Hydromorphone Hcl Inj (*Crx) 1 Mg/Ml Syr IV PUSH 0.5 mg Q4H PRN Administration Pain Rated 7-10 Sodium Chloride 1,000 mls @ 125 mls/hr 02/12/22 17:30 02/14/22 10:22 Normal Saline Iv IV CONT 125 mls/hr .Q8H MARIO Administration Ceftriaxone Sodium/Dextrose 1 gm in 50 mls @ 100 mls/hr 02/13/22 14:00 02/13/22 17:01 Rocephin 1 Gm/D5w 50 Ml IVPB 100 mls/hr Q24H MARIO Administration Ondansetron HCl 4 mg 02/12/22 17:30 Ondansetron Inj 4 Mg/2 Ml Vial IV PUSH Q4H PRN Nausea Ondansetron HCl 4 mg 02/13/22 10:00 Ondansetron Inj 4 Mg/2 Ml Vial IV PUSH ONCE PRN Nausea Radiology Results: ITS Impressions Abdomen/Pelvis CT 02/12/22 15:53 IMPRESSION: 1. 5 mm stone in proximal left ureter with mild left hydronephrosis. 2. 3 mm nonobstructing left kidney stone. Retrograde Pyelogram 02/13/22 11:22 IMPRESSION: 1. Left internal ureteral stent placement. Please refer to real-time procedural findings for details. Abdomen X-Ray 02/14/22 10:06 Impression: 1: Left nephrolithiasis with left internal ureteral stent in expected position. Labs Labs: Laboratory Results - last 24 hr 02/14/22 02/14/22 06:10 06:10 WBC 6.3 RBC 3.55 L Hgb 11.1 L Hct 34.6 L MCV
--- NOTE | 2022-02-14 15:47 | WPDUROPN2 ---
Progress Note: A&P Assessment and Plan (1) Renal lithiasis: Code(s): N20.0 - Calculus of kidney Status: Acute Assessment and Plan: We had a long discussion regarding her plan for a Left ESWL next Saturday02/23/[address] Nolasco. She understands the need for the procedure and that her stent will remain in place until weeks after the ESWL and we have a KUB that shows resolution of the stone s/p ESWL. SHe will f/u on Saturday to repeat a UA/Culture in the office, then we will schedule her for next Saturday. Ok to discharge home at anytime. (2) UTI (urinary tract infection): Qualifiers: Hematuria presence: with hematuria Urinary tract infection type: acute cystitis Qualified Code(s): N30.01 - Acute cystitis with hematuria Code(s): N39.0 - Urinary tract infection, site not specified Status: Acute Assessment and Plan: Culture grew E-Coli, discharge home on appropriate oral antibiotics x 10 days. Subjective Subjective Date/Time Seen: 02/14/22 15:47 POD #1 Cystoscopy, left retrograde pyelogram, left ureteral stent placement 4.8 Swedish contour Patient is doing well, she c/o mild pelvic pain secondary to her stent and mild gross hematuria. A KUB s/p stent placement reveals that the stone has migrated back into the distal pole of the left kidney and that the stent is in place. Her urine culture grew E-Coli sensitive to Ceftriaxone. Review of Systems Cardiovascular: Cardiovascular: Denies chest pain Respiratory: Respiratory: Reports no additional respiratory complaints Gastrointestinal: Gastrointestinal: Reports abdominal pain, Denies nausea and Denies vomiting Genitourinary: Genitourinary: Reports hematuria, Denies dysuria and Reports pelvic pain Exam Resp: Effort & Inspection: normal respiratory effort Cardio: Rate: regular rate GI: GI Palp: Yes Soft to palpation and No Tenderness to palpation present (GI) : General: Yes no CVA tenderness Extrem: General: no edema Objective Data Vital Signs Vital Signs: Vital Signs - 24 hr 02/13/22 20:00 02/13/22 21:04 02/14/22 04:00 Temperature 98.5 F 97.8 F Pulse Rate 50 L 58 L 62 Respiratory Rate 16 18 Blood Pressure 116/74 105/80 Pulse Oximetry 98 97 98 02/14/22 08:00 05/18/22 11:54 Temperature 97.1 F L 98.5 F Pulse Rate 58 L 61 Respiratory Rate 20 18 Blood Pressure 117/71 113/77 Pulse Oximetry 98 98 Intake/Output Intake/Output: Intake & Output 02/11/22 02/12/22 02/13/22 02/14/22 23:59 23:59 23:59 23:59 Intake Total 1350 2900 2590 Output Total 800 900 Balance 1350 2100 1690 Meds/Results Medications: Active Medications Generic Name Dose Route Start Last Admin Trade Name Freq PRN Reason Stop Dose Admin Acetaminophen 650 mg 02/12/22 19:43 Acetaminophen 325 Mg Tablet PO Q4H PRN Mild Pain (1-3) or Fever Fentanyl Citrate 25 mcg 02/13/22 10:00 02/13/22 12:03 Fentanyl Citrate Inj (*Crx) 100 Mcg/2 Ml Vial IV PUSH 25 mcg Q2M PRN Administration Pain Hydromorphone HCl 0.5 mg 02/12/22 17:30 02/14/22 09:35 Hydromorphone Hcl Inj (*Crx) 1 Mg/Ml Syr IV PUSH 0.5 mg Q4H PRN Administration Pain Rated 7-10 Sodium Chloride 1,000 mls @ 125 mls/hr 02/12/22 17:30 02/14/22 10:22 Normal Saline Iv IV CONT 125 mls/hr .Q8H MARIO Administration Ceftriaxone Sodium/Dextrose 1 gm in 50 mls @ 100 mls/hr 02/13/22 14:00 02/14/22 13:38 Rocephin 1 Gm/D5w 50 Ml IVPB Infused Q24H MARIO Infusion Ondansetron HCl 4 mg 02/12/22 17:30 Ondansetron Inj 4 Mg/2 Ml Vial IV PUSH Q4H PRN Nausea Ondansetron HCl 4 mg 02/13/22 10:00 Ondansetron Inj 4 Mg/2 Ml Vial IV PUSH ONCE PRN Nausea Radiology Results: ITS Impressions Abdomen/Pelvis CT 02/12/22 15:53 IMPRESSION: 1. 5 mm stone in proximal left ureter with mild left hydronephrosis. 2. 3 mm nonobstructing left kidney stone. Retrograde Pyelogram 02/13/22 11:22 IMPRESSION:
[2022-02-14] MEDS: ACETAMINOPHEN 325 MG TABLET 650 MG PO (20:07)
[2022-02-14 22:00] VITALS: BP 106/80; PULSE 64; RESP 16; TEMP 36.3; O2SAT 98
[2022-02-15] MEDS: SODIUM CHLORIDE 0.9% IV 1,000 ML 125 ML IV CONT ×3 (01:30→17:46)
[2022-02-15 06:00] VITALS: BP 117/83; PULSE 50; RESP 16; TEMP 36.4; O2SAT 100
[2022-02-15 06:48] LABS: Hematocrit 34.2 % (37.0-47.0); Mean Corpuscular HGB Conc 32.2 g/dl (32-36); Mean Corpuscular Hemoglobin 30.8 pg (26-34); Mean Corpuscular Volume 95.8 fl (80-100); Mean Platelet Volume 9.5 fl (7.4-10.4); Platelet Count Result 194 k/mm3 (150-375); Red Blood Count 3.57 M/mm3 (4.2-5.4); Red Cell Distribution Width 12.7 % (11.5-14.5); White Blood Count 5.2 K/mm3 (4.5-10.0)
[2022-02-15 07:07] LABS: Anion Gap 1 mmol/L (8-16); Blood Urea Nitrogen 8 mg/dL (7-17); Calcium 9.4 mg/dL (8.4-10.2); Carbon Dioxide 27 mmol/L (22-30); Chloride 108 mmol/L (98-107); Estimated Glomerular Filt Rate > 60; Glucose 88 mg/dL (65-110); Potassium 3.7 mmol/L (3.4-5.0); Sodium 136 mmol/L (137-145)
[2022-02-15] MEDS: HYDROmorphone HCL INJ (*CRX) 1 MG/ML SYR 0.5 MG IV PUSH (08:44)
[2022-02-15] MEDS: MAGNESIUM CITRATE 300 ML BTL 150 ML PO (09:58)
--- NOTE | 2022-02-15 10:28 | PM.DS ---
DS: Admitting Diagnosis Discharge Date 02/15/22 Admitting Diagnosis pyelo DS: Discharge Diagnosis Discharge Diagnosis (1) Ureteral obstruction, left: Code(s): N13.5 - Crossing vessel and stricture of ureter without hydronephrosis Status: Acute Assessment and Plan: Per Urology, a stent placed (2) Hydronephrosis: Qualifiers: Hydronephrosis type: with renal calculous obstruction Qualified Code(s): N13.2 - Hydronephrosis with renal and ureteral calculous obstruction Code(s): N13.30 - Unspecified hydronephrosis Status: Acute Assessment and Plan: managed per Urology (3) UTI (urinary tract infection): Qualifiers: Hematuria presence: with hematuria Urinary tract infection type: acute cystitis Qualified Code(s): N30.01 - Acute cystitis with hematuria Code(s): N39.0 - Urinary tract infection, site not specified Status: Acute Assessment and Plan: cefdinir on dc. E coli growing. Pansensitive. DS: Summary Hospital Course Hospital Course: see dc diagnosis Time Spent with Patient Time attestation: Total time spent providing and/or coordinating discharge services: Exam Narrative: Patient is comfortable, NAD HEENT: eyes are clear and none icteric LUNGS: normal respiratory effort ABD: distended Lower extremities: no edema SKIN: nonjaundiced Neuro: grossly intact. DS: Data Data Completed and Pending Labs on day of discharge: Labs from last 24 hours 02/15/22 02/15/22 06:25 06:25 WBC 5.2 RBC 3.57 L Hgb 11.0 L Hct 34.2 L MCV 95.8 MCH 30.8 MCHC 32.2 RDW 12.7 Plt Count 194 MPV 9.5 Sodium 136 L Potassium 3.7 Chloride 108 H Carbon Dioxide 27 Anion Gap 1 L BUN 8 Creatinine 0.50 L Estim Creat Clear Calc Not Reportable Estimated GFR > 60 Glucose 88 Calcium 9.4 Discharge Plan Discharge Attending physician on discharge: Harish Moore Discharging Clinician: Harish Moore Patient Disposition: Home, Self-Care Activity: no preference Diet: as tolerated Discharge Instructions: Urology Instructions: You will be contacted to schedule your follow up in our [place] office to repeat your urine culture. Urology of [address] [place] [address] Finish all of your antibiotics. We will contact you to schedule your Left Lithotripsy at [facility]. Call the office or go to the ER if you have severe pain that is not controlled with pain medications, heavy blood in the urine or clots or a fever of >101. With the stent in place you should avoid strenuous activity and not lift >20lbs. Patient Instructions: Antibiotic Form, Cystoscopy (DC) Stand Alone Forms: General Discharge Information Follow-up/Referrals: Raghavendra Nolasco MD [Physician] - Discharge Medications: New oxybutynin chloride 5 mg tablet 5 mg PO TID PRN (Reason: bladder spasms) Qty: 90 RF: 1 No Action magnesium 30 mg Tablet 30 mg PO DAILY RF: 0 calcium citrate-vitamin D3 [Calcitrate-Vitamin D] 315 mg-6.25 mcg (250 unit) Tablet 1 tablet PO DAILY RF: 0 Hair,Skin and Nails 1 mg iron-66.7 mcg-1,000 mcg Tablet 1 tablet PO DAILY RF: 0 mecobalamin (vitamin B12) 1,000 mcg Tablet,Chewable 1,000 mcg PO DAILY RF: 0 Date of admission: 02/14/22 15:45 Primary Care Provider: Ata,Kayla Tomlin Admitting Provider: Niki Christian Attending physician on admission: Niki Christian Condition: Stable
[2022-02-15] MEDS: HYDROcodone/acetaminophen (*CRX) 5-325 MG TABLET 1 TAB PO ×2 (13:05→19:08)
[2022-02-15 14:00] VITALS: BP 120/84; PULSE 65; RESP 20; TEMP 36.6; O2SAT 100
--- NOTE | 2022-02-15 18:29 | PC.NURSE ---
patient has not had a bowel movement yet. hold discharge at this time
[2022-02-15 21:54] VITALS: BP 118/74; PULSE 73; RESP 18; TEMP 36.1; O2SAT 98
[2022-02-16] MEDS: SODIUM CHLORIDE 0.9% IV 1,000 ML 125 ML IV CONT (05:08)
[2022-02-16 05:59] VITALS: BP 131/83; PULSE 99; RESP 18; TEMP 36.1; O2SAT 100
[2022-02-16 06:56] LABS: Hematocrit 36.1 % (37.0-47.0); Hemoglobin 11.5 g/dL (12.0-15.0); Mean Corpuscular HGB Conc 31.9 g/dl (32-36); Mean Corpuscular Hemoglobin 30.7 pg (26-34); Mean Corpuscular Volume 96.5 fl (80-100); Mean Platelet Volume 9.6 fl (7.4-10.4); Platelet Count Result 203 k/mm3 (150-375); Red Blood Count 3.74 M/mm3 (4.2-5.4); Red Cell Distribution Width 12.7 % (11.5-14.5); White Blood Count 5.3 K/mm3 (4.5-10.0)
[2022-02-16 07:14] LABS: Anion Gap 2 mmol/L (8-16); Blood Urea Nitrogen 15 mg/dL (7-17); Calcium 9.4 mg/dL (8.4-10.2); Carbon Dioxide 26 mmol/L (22-30); Chloride 107 mmol/L (98-107); Estimated Glomerular Filt Rate > 60; Glucose 86 mg/dL (65-110); Potassium 3.8 mmol/L (3.4-5.0); Sodium 135 mmol/L (137-145)
[2022-02-16] MEDS: HYDROcodone/acetaminophen (*CRX) 5-325 MG TABLET 1 TAB PO (09:25)
--- NOTE | 2022-02-16 11:36 | PM.DS ---
DS: Admitting Diagnosis Discharge Date 02/16/22 Admitting Diagnosis ureteral obstruction DS: Discharge Diagnosis Discharge Diagnosis (1) Ureteral obstruction, left: Code(s): N13.5 - Crossing vessel and stricture of ureter without hydronephrosis Status: Acute Assessment and Plan: Per Urology, a stent placed (2) Hydronephrosis: Qualifiers: Hydronephrosis type: with renal calculous obstruction Qualified Code(s): N13.2 - Hydronephrosis with renal and ureteral calculous obstruction Code(s): N13.30 - Unspecified hydronephrosis Status: Acute Assessment and Plan: managed per Urology (3) UTI (urinary tract infection): Qualifiers: Hematuria presence: with hematuria Urinary tract infection type: acute cystitis Qualified Code(s): N30.01 - Acute cystitis with hematuria Code(s): N39.0 - Urinary tract infection, site not specified Status: Acute Assessment and Plan: cefdinir on dc. E coli growing. Pansensitive. DS: Summary Hospital Course Hospital Course: see dc plan and diagnosis Time Spent with Patient Time attestation: Total time spent providing and/or coordinating discharge services: Exam Narrative: Patient is comfortable, NAD HEENT: eyes are clear and none icteric LUNGS: normal respiratory effort ABD: distended Lower extremities: no edema SKIN: nonjaundiced Neuro: grossly intact. DS: Data Data Completed and Pending Labs on day of discharge: Labs from last 24 hours 02/16/22 02/16/22 06:19 06:19 WBC 5.3 RBC 3.74 L Hgb 11.5 L Hct 36.1 L MCV 96.5 MCH 30.7 MCHC 31.9 L RDW 12.7 Plt Count 203 MPV 9.6 Sodium 135 L Potassium 3.8 Chloride 107 Carbon Dioxide 26 Anion Gap 2 L BUN 15 D Creatinine 0.60 L Estim Creat Clear Calc Not Reportable Estimated GFR > 60 Glucose 86 Calcium 9.4 Discharge Plan Discharge Attending physician on discharge: Harish Moore Discharging Clinician: Harish Moore Patient Disposition: Home, Self-Care Activity: no preference Diet: as tolerated Discharge Instructions: Urology Instructions: You will be contacted to schedule your follow up in our [place] office to repeat your urine culture. Urology of [address] [place] [address] Finish all of your antibiotics. We will contact you to schedule your Left Lithotripsy at [facility]. Call the office or go to the ER if you have severe pain that is not controlled with pain medications, heavy blood in the urine or clots or a fever of >101. With the stent in place you should avoid strenuous activity and not lift >20lbs. Patient Instructions: Antibiotic Form, Cystoscopy (DC) Stand Alone Forms: General Discharge Information, Work/School Release IP Follow-up/Referrals: Raghavendra Nolasco MD [Physician] - Discharge Medications: New oxybutynin chloride 5 mg tablet 5 mg PO TID PRN (Reason: bladder spasms) Qty: 90 RF: 1 hydrocodone-acetaminophen 5-325 mg Tablet 1 tablet PO Q6H PRN (Reason: Pain Rated 4-6) Qty: 10 RF: 0 cefdinir 300 mg capsule 300 mg PO Q12H Qty: 10 RF: 0 Continued magnesium 30 mg Tablet 30 mg PO DAILY RF: 0 calcium citrate-vitamin D3 315 mg-6.25 mcg (250 unit) Tablet 1 tablet PO DAILY RF: 0 Hair,Skin and Nails 1 mg iron-66.7 mcg-1,000 mcg Tablet 1 tablet PO DAILY RF: 0 mecobalamin (vitamin B12) 1,000 mcg Tablet,Chewable 1,000 mcg PO DAILY RF: 0 Date of admission: 02/14/22 15:45 Primary Care Provider: Ata,Kayla Tomlin Admitting Provider: Niki Christian Attending physician on admission: Niki Christian Condition: Stable
== END 2022-02-16 13:16 | disposition home or self-care (01) | DRG 463 ==
LOC: ANHED 18:24 → ANH3MEDSUR 22:09
PROVIDERS: Emergency Medicine; Family Medicine; Urology; Admitting Provider Student in an Organized Health Care Education/Training Program; Emergency Provider Nurse Practitioner Family; PCP Nurse Practitioner Family; Visit Provider Chiropractor
PROC: 0T778DZ Dilation of Left Ureter with Intraluminal Device, Via Natural or Artificial Opening Endoscopic (ICD-10-PCS; CPT 52352; principal; 2022-02-13 10:30)
DX: N13.6 Pyonephrosis (principal); E78.00 Pure hypercholesterolemia, unspecified; E03.9 Hypothyroidism, unspecified; J45.20 Mild intermittent asthma, uncomplicated; Z98.84 Bariatric surgery status; Z87.891 Personal history of nicotine dependence; B96.20 Unspecified Escherichia coli [E. coli] as the cause of diseases classified elsewhere; R31.0 Gross hematuria
CPT/HCPCS: 36415; 74018; 74176; 74420; 80048; 80053; 81001; 85025; 85027; 87077; 87086; 87088; 87186; 96360; 96361; 96365; 96375; 99285; A9270; C1758; C1769; C2617; G0378; G0379; J0696; J1170; J2250; J2270; J2405; J2704; J3010; J7030; J7120; Q9966

== ENCOUNTER 2022-06-18 14:54 | Emergency (ER) | payer OTHER, SELFPAY ==
[2022-06-18 15:08] VITALS: BP 94/61; PULSE 66; RESP 18; TEMP 36.3; O2SAT 100
--- NOTE | 2022-06-18 15:20 | ED.URI ---
HPI - URI/Sore Throat General Chief Complaint: Upper Respiratory Infection Stated Complaint: Cough,Chills,Lt Ear Irritation Time Seen by Provider: 06/18/22 15:12 Source: patient, RN notes reviewed and old records reviewed Mode of arrival: ambulatory Limitations: no limitations History of Present Illness HPI Narrative: 47 year old female who presents to [facility] care with complaints of dry cough, pain in left ear, chills but no known fevers since yesterday morning. Patient reports that she dilip not taken any mediation, has had gastric sleeve is afraid to take any OTC medications. Patient denies any shortness of breath or any chest pain ,denies any abdominal pain nausea vomiting or diarrhea. MD elicited complaint: cough and other (left ear pain) Pain scale (0-10): 7 Treatments prior to arrival: none Related Data Home Medications Medication Instructions Recorded Confirmed calcium citrate 315 mg 1 tablet PO DAILY 02/19/21 06/18/22 calcium-vitamin D3 6.25 mcg (250 unit) tablet dextroamphetamine-amphetamine ER 20 mg PO DAILY 06/18/22 06/18/22 20 mg 24hr capsule,extend release lamotrigine 100 mg tablet 100 mg PO DAILY 06/18/22 06/18/22 Allergies Allergy/AdvReac Type Severity Reaction Status Date / Time ibuprofen AdvReac Intermediate Gastrointestinal Verified 06/18/22 15:15 Upset Review of Systems Review of Systems: CONSTITUTIONAL: Denies fever, reports chills, or sweats. EYES: Denies visual changes, redness, or discharge. ENT: Positive rhinorrhea, congestion,no sore throat, positive for left otalgia. CARDIOVASCULAR: Denies chest pain, palpitations, or edema. RESPIRATORY: Positive for cough denies dyspnea. GASTROINTESTINAL: Denies abdominal pain, nausea, vomiting, or diarrhea. GENITOURINARY: Denies dysuria or hematuria. SKIN: Denies rash or itching. MUSCULOSKELETAL: Denies back pain, joint pain, or myalgia. NEUROLOGIC: Denies headache, numbness, or weakness. PSYCHIATRIC: Positive for anxiety or depression. All systems reviewed & are unremarkable except as noted in HPI and below PMFSH Past Medical History Medical History (Updated 06/21/22 @ 20:33 by Kristel Jeter NP) Hypercholesteremia Hypothyroidism Kidney stone Mild intermittent asthma without complication Obesity, morbid, BMI 40.0-49.9 With resolution of obesity after sleeve gastrectomy with BMI now 25 Plantar fasciitis, bilateral Vitamin D deficiency Surgical History Surgical History History of sleeve gastrectomy (05/2020) History of total hysterectomy with bilateral salpingo-oophorectomy (BSO) (~2005) Due to endometriosis Hx of cholecystectomy (~2007) Hx of tubal ligation Family History Family History Sibling , Due to house fire Hypothyroidism Father Hypertension Cerebrovascular accident, Onset Age: 48 Due to uncontrolled hypertension Seizure disorder As a result of CVA Mother , Due to house fire No problems noted. Other Family history of blood dyscrasia Family history of malignant neoplasm Social History Social History Social History: The 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 She may drink an alcoholic beverage once every couple of months. Smoking packs per day: 0.5 Smoking cigarettes per day: 10.0 Years smoked: 10 Smoking pack-years: 5.00 Smoking status: Former smoker Tobacco type: cigarettes Second hand tobacco smoke exposure: Yes Smoking end date: 09/30/17 Alcohol intake: former Substance use: never Gender identity (if verbalized by the patient): Female Spiritual care concerns: No (Restorationism) Comments At time of signature, agree with nursing past medical, surgical, social and family history. There is no relevant family history pertinent to the presenting compl
== END 2022-06-18 15:35 | disposition home or self-care (01) ==
PROVIDERS: Emergency Provider Registered Nurse; PCP Nurse Practitioner Family
DX: J06.9 Acute upper respiratory infection, unspecified (principal); E78.00 Pure hypercholesterolemia, unspecified; E03.9 Hypothyroidism, unspecified; E55.9 Vitamin D deficiency, unspecified; Z98.84 Bariatric surgery status; Z87.891 Personal history of nicotine dependence; Z20.822 Contact with and (suspected) exposure to COVID-19
CPT/HCPCS: 87426; 99213; C9803; G0463

== ENCOUNTER 2023-03-09 17:46 | Emergency (ER) | payer OTHER, SELFPAY ==
--- NOTE | ~2023-03-09 | XR_ITS ---
EXAMINATION: XR ribs RT 2V w CXR 2V INDICATION: Right-sided chest pain TECHNIQUE: PA and lateral views of the chest and 3 views of the right ribs were obtained. COMPARISON: 07/26/2020 FINDINGS: The lungs are free of acute opacities. No pleural effusion or pneumothorax. The cardiomedia stinal silhouette is normal. There is mild thoracic spondylosis. There appear to be nondisplaced ante rolateral fractures of the right sixth and seventh ribs. Surgical clips in the right upper quadrant a re likely from prior cholecystectomy. IMPRESSION: 1. No acute cardiopulmonary abnormality. 2. Possible nondisplaced anterolateral fractures of the right sixth and seventh ribs. Reviewed, dictated and finalized at location F.
--- NOTE | 2023-03-09 17:54 | ED.FALL ---
HPI - Fall General Chief Complaint: Trauma Stated Complaint: Fall Right Side Body Pain Time Seen by Provider: 03/09/23 17:55 Source: patient Mode of arrival: ambulatory Limitations: no limitations History of Present Illness HPI Narrative: Erika is a 48-year-old female patient presenting to clinic today with complaints of right side pain due to a fall. She reports she fell on when cleaning her shower. Was standing on the side a ledge and fell and her right ribs hit the shower ledge. States she is having some shortness of breath and right-sided rib pain. Has been taking Tylenol as needed for pain. History of gastric sleeve surgery so she is unable to take oral NSAIDs. Related Data Home Medications Medication Instructions Recorded Confirmed calcium citrate 315 mg 1 tablet PO DAILY 02/19/21 06/18/22 calcium-vitamin D3 6.25 mcg (250 unit) tablet lamotrigine 100 mg tablet 100 mg PO DAILY 06/18/22 06/18/22 hydroxyzine pamoate 25 mg capsule mg 03/09/23 lisdexamfetamine 30 mg capsule mg 03/09/23 (Vyvanse) topiramate 25 mg tablet mg 03/09/23 Allergies Allergy/AdvReac Type Severity Reaction Status Date / Time ibuprofen AdvReac Intermediate Gastrointestinal Verified 03/09/23 17:48 Upset Review of Systems Review of Systems: Pertinent positives per HPI. Patient denies any fever, chills, rash, headache, visual changes, dizziness, cough, runny nose, sore throat, chest pain, palpitations, nausea, vomiting, diarrhea, constipation, abdominal pain, or any urinary issues. [facility] Past Medical History Medical History Hypercholesteremia Hypothyroidism Kidney stone Mild intermittent asthma without complication Obesity, morbid, BMI 40.0-49.9 With resolution of obesity after sleeve gastrectomy with BMI now 25 Plantar fasciitis, bilateral Vitamin D deficiency Surgical History Surgical History History of sleeve gastrectomy (05/2020) History of total hysterectomy with bilateral salpingo-oophorectomy (BSO) (~2005) Due to endometriosis Hx of cholecystectomy (~2007) Hx of tubal ligation Family History Family History Sibling , Due to house fire Hypothyroidism Father Hypertension Cerebrovascular accident, Onset Age: 48 Due to uncontrolled hypertension Seizure disorder As a result of CVA Mother , Due to house fire No problems noted. Other Family history of blood dyscrasia Family history of malignant neoplasm Social History Social History Social History: The 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 She may drink an alcoholic beverage once every couple of months. Smoking packs per day: 0.5 Smoking cigarettes per day: 10.0 Years smoked: 10 Smoking pack-years: 5.00 Smoking status: Former smoker Tobacco type: cigarettes Second hand tobacco smoke exposure: Yes Smoking end date: 09/30/17 Alcohol intake: former Substance use: never Living arrangements: alone Occupation/Education: occupation Gender identity (if verbalized by the patient): Female Spiritual care concerns: No (Pentecostal) Comments At the time of my signature, I reviewed and agree with the nursing past medical, surgical, social, and family history. There is no relevant family history pertinent to the patient complaint. Exam Narrative: General: Well-developed, well nourished, in no apparent distress Head: Normocephalic, atraumatic. Cardio: Regular rate and rhythm, s1 and s2 normal, no murmur appreciated. Resp: Clear to auscultation bilaterally, no rhonchi, rales, wheezing or rubs. Musculoskeletal: No deformity, no chest wall bruising or swelling noted, tender to palpation over the righ
[2023-03-09 18:01] VITALS: BP 107/70; PULSE 78; RESP 16; TEMP 36.6; O2SAT 100
== END 2023-03-09 19:02 | disposition home or self-care (01) ==
PROVIDERS: Emergency Provider Nurse Practitioner Family
DX: S22.41XA Multiple fractures of ribs, right side, initial encounter for closed fracture (principal); W17.89XA Other fall from one level to another, initial encounter; E78.00 Pure hypercholesterolemia, unspecified; E03.9 Hypothyroidism, unspecified; J45.909 Unspecified asthma, uncomplicated; Z98.84 Bariatric surgery status; Z90.710 Acquired absence of both cervix and uterus; Z87.891 Personal history of nicotine dependence
CPT/HCPCS: 71046; 71100; 99213; G0463

== ENCOUNTER 2023-03-10 22:46 | Emergency (ER) | payer OTHER, SELFPAY ==
--- NOTE | ~2023-03-10 | XR_ITS ---
EXAMINATION: XR tibia fibula RT 2V INDICATION: Right lower limb pain and swelling TECHNIQUE: Two views of the right tibia and fibula are obtained COMPARISON: None available FINDINGS: Bone alignment is normal. There is no fracture. There is mild osteoarthritis of the knee. T here is mild soft tissue swelling anterior to the proximal tibia and fibula. IMPRESSION: 1. Mild soft tissue swelling without acute osseous abnormality. Reviewed, dictated and finalized at location A.
[2023-03-10 22:50] VITALS: BP 135/90; PULSE 68; RESP 14; TEMP 36.7; O2SAT 100
[2023-03-11 00:25] VITALS: BP 123/66; PULSE 72; RESP 15; O2SAT 100
[2023-03-11 01:26] LABS: Basophils Percent Auto 0.3 % (0.2-1.2); Eosinophils Absolute Auto 0.2 K/mm3 (0-0.3); Eosinophils Percent Auto 2.6 % (0-4.4); Hematocrit 38.3 % (37.0-47.0); Hemoglobin 12.2 g/dL (12.0-15.0); Immature Granulocyte Absolute 0.01 K/mm3 (0.00-0.031); Immature Granulocyte Percent A 0.2 % (0-0.5); Lymphocytes Absolute Auto 2.15 K/mm3 (0.9-3.2); Lymphocytes Percent Auto 36.7 % (18.3-44.2); Mean Corpuscular HGB Conc 31.9 g/dl (32-36); Mean Corpuscular Hemoglobin 30.9 pg (26-34); Mean Platelet Volume 8.9 fl (7.4-10.4); Monocytes Absolute Auto 0.4 K/mm3 (0.1-0.6); Monocytes Percent Auto 7.2 % (2.6-8.5); Neutrophils Absolute Auto 3.1 K/mm3 (1.3-6.7); Platelet Count Result 249 k/mm3 (150-375); Red Blood Count 3.95 M/mm3 (4.2-5.4); White Blood Count 5.9 K/mm3 (4.5-10.0)
[2023-03-11 01:35] VITALS: BP 143/103; PULSE 99; RESP 18; O2SAT 100
[2023-03-11 01:41] LABS: Alanine Aminotransferase 25 U/L (6-35); Albumin Level 4.1 g/dL (3.5-5.1); Alkaline Phosphatase 88 U/L (38-126); Anion Gap 3 mmol/L (8-16); Aspartate Amino Transferase 29 U/L (14-36); Bilirubin,Total 0.3 mg/dL (0.2-1.3); Blood Urea Nitrogen 18 mg/dL (7-17); Carbon Dioxide 30 mmol/L (22-30); Chloride 104 mmol/L (98-107); Estimated Glomerular Filt Rate > 60; Glucose 91 mg/dL (65-110); Potassium 4.3 mmol/L (3.4-5.0); Sodium 137 mmol/L (137-145)
--- NOTE | 2023-03-11 01:42 | ED.GENADULT ---
HPI - General Adult General Chief complaint: Extremity Problem,Nontraumatic Stated complaint: R leg pain/swelling Time Seen by Provider: 03/11/23 00:07 History of Present Illness HPI narrative: Patient is a 48-year-old female who presents the emergency department with chief complaint of right leg pain. Patient reports that she fell on the eighth and struck her chest and her leg the patient reports that she had 3 broken ribs at that time and today noticed that she started having pain below her knee down her leg and noticed that she had bruising on the anterior portion of her leg. The patient reports no pain in the calf the patient reports the pain is worse with movement and improved with rest. Related Data Home Medications Medication Instructions Recorded Confirmed calcium citrate 315 mg 1 tablet PO DAILY 02/19/21 06/18/22 calcium-vitamin D3 6.25 mcg (250 unit) tablet lamotrigine 100 mg tablet 100 mg PO DAILY 06/18/22 06/18/22 hydroxyzine pamoate 25 mg capsule mg 03/09/23 lisdexamfetamine 30 mg capsule mg 03/09/23 (Vyvanse) topiramate 25 mg tablet mg 03/09/23 Allergies Allergy/AdvReac Type Severity Reaction Status Date / Time ibuprofen AdvReac Intermediate Gastrointestinal Verified 03/09/23 17:48 Upset Review of Systems Review of Systems: A 10 system review of systems was completed on the patient and is negative except for what is stated in the HPI. Nursing and ancillary documentation was reviewed. [facility] Past Medical History Medical History Hypercholesteremia Hypothyroidism Kidney stone Mild intermittent asthma without complication Obesity, morbid, BMI 40.0-49.9 With resolution of obesity after sleeve gastrectomy with BMI now 25 Plantar fasciitis, bilateral Vitamin D deficiency Surgical History Surgical History History of sleeve gastrectomy (05/2020) History of total hysterectomy with bilateral salpingo-oophorectomy (BSO) (~2005) Due to endometriosis Hx of cholecystectomy (~2007) Hx of tubal ligation Family History Family History Sibling , Due to house fire Hypothyroidism Father Hypertension Cerebrovascular accident, Onset Age: 48 Due to uncontrolled hypertension Seizure disorder As a result of CVA Mother , Due to house fire No problems noted. Other Family history of blood dyscrasia Family history of malignant neoplasm Social History Social History Social History: The 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 She may drink an alcoholic beverage once every couple of months. Smoking packs per day: 0.5 Smoking cigarettes per day: 10.0 Years smoked: 10 Smoking pack-years: 5.00 Smoking status: Former smoker Tobacco type: cigarettes Second hand tobacco smoke exposure: Yes Smoking end date: 09/30/17 Alcohol intake: former Substance use: never Living arrangements: alone Occupation/Education: occupation Gender identity (if verbalized by the patient): Female Spiritual care concerns: No (Pentecostalism) Exam Narrative: GENERAL: Well-appearing, well-nourished, and in no acute distress. HEAD: Normocephalic, atraumatic. EYES: PERRLA and EOMI. ENT: Nares clear, no rhinorrhea or epistaxis. Mucous membranes moist. NECK: Supple. CHEST: Clear to auscultation. No respiratory distress. HEART: Regular rate and rhythm. No murmur heard. Normal peripheral pulses. ABDOMEN: Soft, nontender, nondistended, normal active bowel sounds. EXTREMITIES: Normal range of motion. No edema. There is bruising present to the dorsum of the right lower extremity below the knee calf is soft and nontender SKIN: Warm, dry, no rash. NEURO: No focal deficits. A
[2023-03-11 02:07] LABS: INR 0.9; Prothrombin Time 12.9 Seconds (11.1-14.7)
[2023-03-11 02:08] LABS: Partial Thromboplastin Time 28.9 SECONDS (22.3-36.8)
[2023-03-11] MEDS: HYDROcodone/acetaminophen (*CRX) 5-325 MG TABLET 1 TAB PO (04:19)
[2023-03-11 04:40] VITALS: BP 109/75; PULSE 60; O2SAT 99
== END 2023-03-11 04:43 | disposition home or self-care (01) ==
PROVIDERS: Emergency Provider Emergency Medicine
DX: S80.11XA Contusion of right lower leg, initial encounter (principal); E78.00 Pure hypercholesterolemia, unspecified; E03.9 Hypothyroidism, unspecified; J45.20 Mild intermittent asthma, uncomplicated; E66.01 Morbid (severe) obesity due to excess calories; Z68.27 Body mass index [BMI] 27.0-27.9, adult; E55.9 Vitamin D deficiency, unspecified; Z87.442 Personal history of urinary calculi; Z98.84 Bariatric surgery status; Z90.710 Acquired absence of both cervix and uterus; Z90.722 Acquired absence of ovaries, bilateral; Z90.79 Acquired absence of other genital organ(s); W19.XXXA Unspecified fall, initial encounter
CPT/HCPCS: 36415; 73590; 80053; 85025; 85610; 85730; 99283; A9270

== ENCOUNTER 2023-07-29 06:40 | Emergency (ER) | payer OTHER, SELFPAY ==
--- NOTE | ~2023-07-29 | CT_ITS ---
EXAMINATION: CT thoracic spine wo con DATE: 07/29/2023 07:25 INDICATION: Back pain. Injury. TECHNIQUE: Computed tomography (CT) of the thoracic spine was performed without intravenous contrast. Automated exposure control and iterative reconstruction technique were employed. The dose-length pro duct was 272.51 mGy-cm. COMPARISON: Chest CT 07/26/2020 FINDINGS: There are surgical changes in the stomach. There are changes of cholecystectomy. There is a 2 mm stone in left kidney. Bone alignment is normal. There is mild chronic anterior wedging of T11 a nd T12 vertebral bodies. There is mildly decreased disc height at T11-T12. At T11-T12, there is a dis c bulge. There is multilevel mild facet joint osteoarthritis. At T11-T12, there is mild bilateral bailee ral foraminal stenosis. There is mild central canal stenosis at T11-T12. IMPRESSION: 1. No fracture. 2. Mild thoracic spondylosis. Reviewed, dictated and finalized at location E.
[2023-07-29 06:44] VITALS: BP 112/75; PULSE 95; RESP 19; TEMP 36.4; O2SAT 99
--- NOTE | 2023-07-29 07:25 | ED.FALL ---
HPI - Fall General Chief Complaint: Fall Stated Complaint: Fall down 3 steps, back pain. Time Seen by Provider: 07/29/23 06:56 History of Present Illness HPI Narrative: This is a 48-year-old female, with history of gastric surgery, who presents emergency department complaining of mid back pain after fall yesterday evening. The patient states she was walking downstairs in her socks, when she slipped, falling backwards and striking her back on her stairs. She complains of 7/10 midline back pain, described as sore and intermittently sharp. She denies weakness, numbness, loss sensation in the groin or loss of bowel or bladder control. She denies head injury or loss of consciousness. Related Data Home Medications Medication Instructions Recorded Confirmed calcium citrate 315 mg 1 tablet PO DAILY 02/19/21 06/18/22 calcium-vitamin D3 6.25 mcg (250 unit) tablet lamotrigine 100 mg tablet 100 mg PO DAILY 06/18/22 06/18/22 hydroxyzine pamoate 25 mg capsule mg 03/09/23 lisdexamfetamine 30 mg capsule mg 03/09/23 (Vyvanse) topiramate 25 mg tablet mg 03/09/23 Allergies Allergy/AdvReac Type Severity Reaction Status Date / Time ibuprofen AdvReac Intermediate Gastrointestinal Verified 07/29/23 06:47 Upset Review of Systems Review of Systems: CONSTITUTIONAL: Denies fever, chills, or sweats. CARDIOVASCULAR: Denies chest pain, palpitations, or edema. RESPIRATORY: Denies cough or dyspnea. GASTROINTESTINAL: Denies abdominal pain, nausea, vomiting, or diarrhea. GENITOURINARY: Denies dysuria or hematuria. SKIN: Denies rash or itching. MUSCULOSKELETAL: Back pain denies joint pain, or myalgia. NEUROLOGIC: Denies headache, numbness, dizziness, or weakness. PSYCHIATRIC: Denies anxiety or depression. [facility] Past Medical History Medical History Hypercholesteremia Hypothyroidism Kidney stone Mild intermittent asthma without complication Obesity, morbid, BMI 40.0-49.9 With resolution of obesity after sleeve gastrectomy with BMI now 25 Plantar fasciitis, bilateral Vitamin D deficiency Surgical History Surgical History History of sleeve gastrectomy (05/2020) History of total hysterectomy with bilateral salpingo-oophorectomy (BSO) (~2005) Due to endometriosis Hx of cholecystectomy (~2007) Hx of tubal ligation Family History Family History Sibling , Due to house fire Hypothyroidism Father Hypertension Cerebrovascular accident, Onset Age: 48 Due to uncontrolled hypertension Seizure disorder As a result of CVA Mother , Due to house fire No problems noted. Other Family history of blood dyscrasia Family history of malignant neoplasm Social History Social History Social History: The 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 She may drink an alcoholic beverage once every couple of months. Smoking packs per day: 0.5 Smoking cigarettes per day: 10.0 Years smoked: 10 Smoking pack-years: 5.00 Smoking status: Former smoker Tobacco type: cigarettes Second hand tobacco smoke exposure: Yes Smoking end date: 09/30/17 Alcohol intake: former Substance use: never Living arrangements: alone Occupation/Education: occupation Gender identity (if verbalized by the patient): Female Spiritual care concerns: No (Christianity) Exam Narrative: GENERAL: Well-developed, well-nourished, and in no acute distress. HEAD: Normocephalic, atraumatic. EYES: PERRLA and EOMI. NECK: Supple. No midline spine tenderness to palpation, no step-off or crepitus CHEST: Clear to auscultation. No respiratory distress. No wheezes rales or rhonchi HEART: Regular rate and rhythm. No murmur heard. Normal peripheral pulses.
[2023-07-29] MEDS: ACETAMINOPHEN 500 MG TABLET 1000 MG PO (07:33)
[2023-07-29] MEDS: LIDOCAINE 5% PATCH 1 PATCH TRANSDERM (07:51)
[2023-07-29 07:52] VITALS: BP 107/75; PULSE 75; RESP 18; O2SAT 99
== END 2023-07-29 08:07 | disposition home or self-care (01) ==
PROVIDERS: Emergency Provider Preventive Medicine Aerospace Medicine
DX: S20.229A Contusion of unspecified back wall of thorax, initial encounter (principal); W10.9XXA Fall (on) (from) unspecified stairs and steps, initial encounter; E78.00 Pure hypercholesterolemia, unspecified; E03.9 Hypothyroidism, unspecified; J45.20 Mild intermittent asthma, uncomplicated; E55.9 Vitamin D deficiency, unspecified; Z98.84 Bariatric surgery status
CPT/HCPCS: 72128; 99284; A9270

== ENCOUNTER 2023-08-07 15:39 | Emergency (ER) | payer OTHER, SELFPAY ==
[2023-08-07 15:51] VITALS: BP 110/75; PULSE 80; RESP 16; TEMP 36.5; O2SAT 99
--- NOTE | 2023-08-07 15:53 | ED.URI ---
HPI - URI/Sore Throat General Chief Complaint: Upper Respiratory Infection Stated Complaint: nose bleeds Source: patient and RN notes reviewed Mode of arrival: ambulatory Limitations: no limitations History of Present Illness HPI Narrative: 48-year-old female presented for complaint of intermittent nosebleeds over the past 5 days. She states she has had up to 4 episodes in a day. Woke this morning with blood on pillowcase. Reports maxillary sinus pressure. Using saline nasal spray, claritin, vaseline remedies without resolution. States the nosebleeds increase her anxiety. Denies cough, shortness breath, Chest pain, heart racing, wheezing, nausea, vomiting, fevers or chills. MD elicited complaint: cough Related Data Home Medications Medication Instructions Recorded Confirmed calcium citrate 315 mg 1 tablet PO DAILY 02/19/21 08/07/23 calcium-vitamin D3 6.25 mcg (250 unit) tablet lamotrigine 100 mg tablet 100 mg PO DAILY 06/18/22 08/07/23 hydroxyzine pamoate 25 mg capsule 25 mg PO DAILY 03/09/23 08/07/23 lisdexamfetamine 30 mg capsule 30 mg PO DAILY 03/09/23 08/07/23 (Vyvanse) topiramate 25 mg tablet 25 mg PO DAILY 03/09/23 08/07/23 Allergies Allergy/AdvReac Type Severity Reaction Status Date / Time ibuprofen AdvReac Intermediate Gastrointestinal Verified 08/07/23 15:45 Upset Review of Systems Review of Systems: CONSTITUTIONAL: denies malaise, chills, sweats, fever EYES: Denies visual changes, redness, or discharge ENT: Reports rhinorrhea, congestion, sinus pain, epistaxis denies otalgia, sore throat CARDIOVASCULAR: Denies chest pain, palpitations, edema RESPIRATORY: Denies dyspnea, cough, post nasal drainage. GASTROINTESTINAL: Denies abdominal pain, nausea, vomiting, diarrhea SKIN: Denies rash or itching MUSCULOSKELETAL: Denies myalgia NEUROLOGIC: Denies headache PMFSH Past Medical History Medical History Hypercholesteremia Hypothyroidism Kidney stone Mild intermittent asthma without complication Obesity, morbid, BMI 40.0-49.9 With resolution of obesity after sleeve gastrectomy with BMI now 25 Plantar fasciitis, bilateral Vitamin D deficiency Surgical History Surgical History History of sleeve gastrectomy (05/2020) History of total hysterectomy with bilateral salpingo-oophorectomy (BSO) (~2005) Due to endometriosis Hx of cholecystectomy (~2007) Hx of tubal ligation Family History Family History Sibling , Due to house fire Hypothyroidism Father Hypertension Cerebrovascular accident, Onset Age: 48 Due to uncontrolled hypertension Seizure disorder As a result of CVA Mother , Due to house fire No problems noted. Other Family history of blood dyscrasia Family history of malignant neoplasm Social History Social History Social History: The 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 She may drink an alcoholic beverage once every couple of months. Smoking packs per day: 0.5 Smoking cigarettes per day: 10.0 Years smoked: 10 Smoking pack-years: 5.00 Smoking status: Former smoker Tobacco type: cigarettes Second hand tobacco smoke exposure: Yes Smoking end date: 09/30/17 Alcohol intake: former Substance use: never Living arrangements: alone Occupation/Education: occupation Gender identity (if verbalized by the patient): Female Spiritual care concerns: No (Yazidi) Exam Narrative: GENERAL: well-appearing, nontoxic no acute distress. HEAD: Normocephalic EYES: PERRLA, conjunctivae clear ENT: Mucous membranes moist. Bilateral nares appear normal without active bleeding or dried blood. TMs pearly davalos with normal light reflex bilaterally; no tragal tenderness.
== END 2023-08-07 16:13 | disposition home or self-care (01) ==
PROVIDERS: Emergency Provider Nurse Practitioner Family; PCP Nurse Practitioner Family
DX: J06.9 Acute upper respiratory infection, unspecified (principal); Z87.891 Personal history of nicotine dependence; E78.00 Pure hypercholesterolemia, unspecified; E03.9 Hypothyroidism, unspecified; J45.909 Unspecified asthma, uncomplicated; E66.01 Morbid (severe) obesity due to excess calories; Z68.27 Body mass index [BMI] 27.0-27.9, adult; E55.9 Vitamin D deficiency, unspecified; Z98.84 Bariatric surgery status
CPT/HCPCS: 99213; G0463

== ENCOUNTER 2023-08-16 10:21 | Outpatient (CLI) | payer OTHER, SELFPAY ==
--- NOTE | ~2023-08-16 | MM_ITS ---
EXAMINATION: MM screening [facility] BI w jazzy HISTORY: Screening mammogram TECHNIQUE: Craniocaudal and mediolateral oblique 3-D tomosynthesis images were obtained and synthetic 2-D images were generated. CAD analysis was submitted and interpreted. COMPARISON: 07/16/2019, 07/07/2014, 06/13/2010 BREAST PARENCHYMAL COMPOSITION: There are scattered areas of fibroglandular density. FINDINGS: No suspicious mass, calcification, or architectural distortion are identified in either marlo ast to suggest malignancy. There has been no suspicious interval change. IMPRESSION: 1. No mammographic evidence of malignancy. 2. Recommend routine screening mammography in one year. BI-RADS Category 1: Negative Reviewed, dictated and finalized at location A. [employer]
== END 2023-08-16 10:22 | disposition home or self-care (01) ==
PROVIDERS: PCP Nurse Practitioner Family; Visit Provider Nurse Practitioner Family
DX: Z12.31 Encounter for screening mammogram for malignant neoplasm of breast (principal)
CPT/HCPCS: 77063; 77067

== ENCOUNTER 2023-12-26 01:50 | Day surgery (SDC) | payer OTHER, SELFPAY ==
[2023-12-17 13:17] VITALS: BMI 28.1
--- NOTE | 2023-12-17 13:33 | PC.NURSE ---
called pt to go over medical history and her colonoscopy prep instructions. she stated she was at work but this would be her only time to do this as she works several jobs. stated she did not think she had received any instructions in the mail. offered to email her but she stated she is not able to get into her email right now. also let her know she could look online on the [employer] website but she said she would not have time to do that either. hard copy of instructions will be mailed but warned her that this may not get to her in timely fashion. tried to go over instructions with her but cannot confirm she understood. she stated she couldn't talk any longer but stated she really needed to get the colonoscopy done. will mail copy of instructions today. asked pt to please call back if any questions. she said she would.
--- NOTE | 2023-12-24 08:20 | SUR.PREOP ---
Patient called regarding upcoming procedure. Reviewed preop instructions, appointment times, and procedure prep.
[2023-12-26 08:21] VITALS: BP 110/59; PULSE 60; RESP 16; TEMP 36.3; O2SAT 100
[2023-12-26] MEDS: LACTATED RINGERS 1,000 ML 150 ML IV CONT (08:36)
--- NOTE | 2023-12-26 08:55 | WPDANESEPPF ---
Anes - Initial Pre Proc Eval Procedure: Operation Date: 12/26/23 09:30 Proposed Procedures p Screening Colonoscopy - Roosevelt Lamb DO Date/Time: 12/26/23 08:55 Surgeon: Roosevelt Lamb DO Pre Op Diagnosis: neoplasm screening Patient Data Age: 48 Gender: F Height: 1.45 m Weight: 59.9 kg Last Vital Signs Temp 97.3 F L 12/26/23 08:21 Pulse 60 12/26/23 08:21 Resp 16 12/26/23 08:21 BP 110/59 L 12/26/23 08:21 Pulse Ox 100 12/26/23 08:21 O2 Del Method Room Air 12/26/23 08:21 Allergies Allergy/AdvReac Type Severity Reaction Status Date / Time ibuprofen AdvReac Intermediate Gastrointestinal Verified 12/26/23 08:20 Upset Home Medications Medication Instructions Recorded Confirmed Type calcium citrate 315 mg 1 tablet PO DAILY 02/19/21 12/17/23 History calcium-vitamin D3 6.25 mcg (250 unit) tablet lisdexamfetamine 30 mg capsule 30 mg PO DAILY 03/09/23 12/17/23 History (Vyvanse) hydroxyzine pamoate 25 mg capsule 50 mg PO DAILY 11/28/23 12/17/23 History lamotrigine 100 mg tablet 150 mg PO DAILY 11/28/23 12/17/23 History lidocaine 5 % topical patch 1 patch topical .q12 hour PRN 11/28/23 12/17/23 Rx lumbar pain #60 ea topiramate 25 mg tablet 50 mg PO DAILY 11/28/23 12/17/23 History phentermine 37.5 mg tablet 37.5 mg PO DAILY #30 tabs 12/04/23 12/17/23 Rx Patient hx anesthesia problems: none Family hx anesthesia problems: none Results Review: All pre-operative results and documents have been reviewed as part of the pre-operative evaluation. [facility] Past Medical History Medical History (Updated 12/04/23 @ 08:04 by Kayla Berumen APRN) Anxiety Bipolar depression Disorder of thyroid Essential hypertension Fatigue due to depression Headache Hypercholesteremia Hypothyroidism Kidney stone Migraine Mild intermittent asthma without complication Nondisplaced fracture of middle phalanx of left index finger Nondisplaced fracture of middle phalanx of left index finger Obese Plantar fasciitis, bilateral Vitamin D deficiency Surgical History Surgical History (Updated 11/28/23 @ 09:00 by Angela Myers, RT(R)) History of sleeve gastrectomy (05/2020) History of total hysterectomy with bilateral salpingo-oophorectomy (BSO) (04/2006) Due to endometriosis Hx of cholecystectomy (07/2008) Hx of tubal ligation (07/2000) Family History Family History (Updated 11/28/23 @ 09:06 by Angela Myers, RT(R)) Sibling , Due to house fire Hypothyroidism Father Hypertension Cerebrovascular accident, Onset Age: 48 Due to uncontrolled hypertension Seizure disorder As a result of CVA Asthma Depression Mother , Due to house fire Heart disease Sibling Depression Thyroid disorder Other Family history of blood dyscrasia Family history of malignant neoplasm Social History Social History (Updated 11/28/23 @ 13:21 by Maddy Bonilla) Social History: The 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 She may drink an alcoholic beverage once every couple of months. Smoking packs per day: 0.5 Smoking cigarettes per day: 10.0 Years smoked: 10 Smoking pack-years: 5.00 Smoking status: Former smoker Tobacco type: cigarettes Second hand tobacco smoke exposure: Yes Smoking end date: 09/30/17 Alcohol intake: former Substance use: never Substance use type: does not use Lack of Transportation: No Lack of Food: Never True Current Housing: I Have Housing Concerned About Future Housing: No Difficulty Paying Gas/Electric Bills: No Difficulty Paying for Meds: No Currently Unemployed: No Education: High School Diploma/GED Difficulty w/ Childcare or Family Care: No Living arrangements: with family Occupation/Education: occupation 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
--- NOTE | 2023-12-26 09:25 | PM.IMHP ---
H&P: HPI History of Present Illness Date/Time: 12/26/23 09:25 Chief Complaint: screening for colorectal cancer Narrative: this is a 48-year-old woman who presents for her 1st colonoscopy. She denies any hematochezia or melena. She denies any family history of colon cancer. She has a surgical history of a sleeve gastrectomy. Review of Systems Review of Systems: All systems reviewed & are unremarkable except as noted in HPI and below Constitutional: Constitutional: Denies chills, Denies fever(s), Denies headache(s) and Denies weight loss Eyes: Eyes: Denies change in vision ENT: Denies dizziness, Denies headache(s), Denies neck mass and Denies throat swelling Cardiovascular: Cardiovascular: Denies chest pain, Denies lightheadedness and Denies dyspnea Respiratory: Respiratory: Denies cough, Denies dyspnea and Denies wheezing Gastrointestinal: Gastrointestinal: Denies abdominal pain, Denies change in bowel habits, Denies nausea and Denies vomiting Genitourinary: Genitourinary: Denies hematuria and Denies dysuria Musculoskeletal: Musculoskeletal: Reports as per HPI Integumentary/Breasts: Skin/Breast: Reports as per HPI Neurologic: Denies dizziness and Denies headache(s) Allergic/Immunologic: Allergic/Immunologic: Denies throat swelling and Denies wheezing [facility] Past Medical History Medical History (Updated 12/26/23 @ 09:25 by Roosevelt Lamb DO) Anxiety Bipolar depression Disorder of thyroid Essential hypertension Fatigue due to depression Headache Hypercholesteremia Hypothyroidism Kidney stone Migraine Mild intermittent asthma without complication Nondisplaced fracture of middle phalanx of left index finger Nondisplaced fracture of middle phalanx of left index finger Obese Plantar fasciitis, bilateral Vitamin D deficiency Surgical History Surgical History (Updated 11/28/23 @ 09:00 by Angela Myers, RT(R)) History of sleeve gastrectomy (05/2020) History of total hysterectomy with bilateral salpingo-oophorectomy (BSO) (04/2006) Due to endometriosis Hx of cholecystectomy (07/2008) Hx of tubal ligation (07/2000) Family History Family History (Updated 11/28/23 @ 09:06 by Angela Myers, RT(R)) Sibling , Due to house fire Hypothyroidism Father Hypertension Cerebrovascular accident, Onset Age: 48 Due to uncontrolled hypertension Seizure disorder As a result of CVA Asthma Depression Mother , Due to house fire Heart disease Sibling Depression Thyroid disorder Other Family history of blood dyscrasia Family history of malignant neoplasm Social History Social History (Updated 11/28/23 @ 13:21 by Maddy Bonilla) Social History: The 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 She may drink an alcoholic beverage once every couple of months. Smoking packs per day: 0.5 Smoking cigarettes per day: 10.0 Years smoked: 10 Smoking pack-years: 5.00 Smoking status: Former smoker Tobacco type: cigarettes Second hand tobacco smoke exposure: Yes Smoking end date: 09/30/17 Alcohol intake: former Substance use: never Substance use type: does not use Lack of Transportation: No Lack of Food: Never True Current Housing: I Have Housing Concerned About Future Housing: No Difficulty Paying Gas/Electric Bills: No Difficulty Paying for Meds: No Currently Unemployed: No Education: High School Diploma/GED Difficulty w/ Childcare or Family Care: No Living arrangements: with family Occupation/Education: occupation 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
[2023-12-26] MEDS: SIMETHICONE ORAL SUSPENSION 20 MG/0.3 ML 30 ML BOTTLE 0.6 ML IRRIGATION (09:48)
[2023-12-26 10:00] VITALS: BP 105/65; PULSE 68; RESP 23; O2SAT 100
[2023-12-26 10:10] VITALS: BP 116/79; PULSE 77; RESP 22; O2SAT 100
[2023-12-26 10:20] VITALS: BP 135/80; PULSE 75; RESP 21; O2SAT 100
--- NOTE | 2023-12-26 10:27 | SUR.PHASEII ---
Called pt's ride. Not here yet. Will call when they get here.
== END 2023-12-26 10:38 | disposition home or self-care (01) ==
PROVIDERS: PCP Nurse Practitioner Family; Visit Provider Surgery
PROC: 0DJD8ZZ Inspection of Lower Intestinal Tract, Via Natural or Artificial Opening Endoscopic (ICD-10-PCS; CPT 45378; principal; 2023-12-26 09:30)
DX: Z12.11 Encounter for screening for malignant neoplasm of colon (principal); I10 Essential (primary) hypertension; E03.9 Hypothyroidism, unspecified; J45.909 Unspecified asthma, uncomplicated; E55.9 Vitamin D deficiency, unspecified; F41.9 Anxiety disorder, unspecified; F31.9 Bipolar disorder, unspecified; E78.00 Pure hypercholesterolemia, unspecified; Z98.890 Other specified postprocedural states; Z90.49 Acquired absence of other specified parts of digestive tract; Z98.84 Bariatric surgery status; Z87.891 Personal history of nicotine dependence; Z80.9 Family history of malignant neoplasm, unspecified; Z82.49 Family history of ischemic heart disease and other diseases of the circulatory system
CPT/HCPCS: 45378; J2704; J7120

== ENCOUNTER 2024-01-05 06:38 | Emergency (ER) | payer OTHER, SELFPAY ==
--- NOTE | ~2024-01-05 | CT_ITS ---
EXAMINATION: CT diagnostic chest wo con DATE: 01/05/2024 08:38 INDICATION: Fall. Trauma. Left posterior rib pain, axillary pain TECHNIQUE: Computed tomography (CT) of the chest was performed without intravenous contrast. Automate d exposure control and iterative reconstruction technique were employed. Exam dose: 221.42 mGy-cm to lucius exam DLP. COMPARISON: 07/26/2020 CTA chest is not available from the archive at this time FINDINGS: Normal heart size. No pericardial or pleural effusion. No thoracic aortic aneurysm. No hilar or mediastinal mass lesion or lymphadenopathy. No pericardial o r pleural effusion. Small sliding hiatal hernia. Status post cholecystectomy. Postoperative change of the stomach. Normal morphology of the adrenal glands. Minimal bilateral dependent lower lobe atelectasis. The lungs are clear of infiltrate or consolidatio n. No suspicious pulmonary mass lesion. No pneumothorax. No rib fracture or other cervical or thoracic spine fracture is noted. The sternum is intact. No susp icious osteolytic or osteoblastic lesions. IMPRESSION: No significant abnormality Reviewed, dictated and finalized at [facility]. Reviewed, dictated and finalized at [facility]. IMPRESSION: No significant abnormality
--- NOTE | ~2024-01-05 | CT_ITS ---
EXAMINATION: CT cervical spine wo con DATE: 01/05/2024 08:38 INDICATION: Trauma TECHNIQUE: Computed tomography (CT) of the cervical spine was performed without intravenous contrast. Automated exposure control and iterative reconstruction technique were employed. Exam dose: 146.90 mGy-cm total exam DLP. COMPARISON: None FINDINGS: There is reversal cervical curvature which may be due to positioning and/or muscle spasm. Normal atlantoaxial alignment. C1 and C2 are normally aligned and the odontoid process is intact. No fracture or dislocation or locked facet or prevertebral soft tissue swelling. Cervical interspaces are relatively preserved. Minimal anterior spurring at C4-5 and C5-6. IMPRESSION: Reversal cervical curvature which may be due to positioning and/or muscle spasm Mild cervical spondylosis No fracture or dislocation or locked facet Reviewed, dictated and finalized at [facility]. Reviewed, dictated and finalized at [facility].
[2024-01-05 06:43] VITALS: BP 123/64; PULSE 70; RESP 16; O2SAT 100
[2024-01-05 07:20] VITALS: BP 116/74; PULSE 65; RESP 14; TEMP 36.4; O2SAT 100
--- NOTE | 2024-01-05 08:22 | ED.FALL ---
HPI - Fall General Chief Complaint: Fall Stated Complaint: fell down 4 wood stairs Time Seen by Provider: 01/05/24 06:56 History of Present Illness HPI Narrative: 48-year-old female presenting to the emergency department for evaluation after having a ground level fall. Patient was walking down stairs getting ready for work when she slipped and slid down approximately 4 stairs injuring her left side. Patient did not strike her head denies loss consciousness. Patient reports left-sided back pain. Related Data Home Medications Medication Instructions Recorded Confirmed calcium citrate 315 mg 1 tablet PO DAILY 02/19/21 12/17/23 calcium-vitamin D3 6.25 mcg (250 unit) tablet lisdexamfetamine 30 mg capsule 30 mg PO DAILY 03/09/23 12/17/23 (Vyvanse) hydroxyzine pamoate 25 mg capsule 50 mg PO DAILY 11/28/23 12/17/23 lamotrigine 100 mg tablet 150 mg PO DAILY 11/28/23 12/17/23 topiramate 25 mg tablet 50 mg PO DAILY 11/28/23 12/17/23 Allergies Allergy/AdvReac Type Severity Reaction Status Date / Time ibuprofen AdvReac Intermediate Gastrointestinal Verified 01/05/24 07:15 Upset Review of Systems Review of Systems: All systems reviewed & are unremarkable except as noted in HPI and below PMFSH Past Medical History Medical History (Updated 01/05/24 @ 09:15 by Shalom Worley MD) Anxiety Bipolar depression Disorder of thyroid Essential hypertension Fatigue due to depression Headache Hypercholesteremia Hypothyroidism Kidney stone Migraine Mild intermittent asthma without complication Nondisplaced fracture of middle phalanx of left index finger Nondisplaced fracture of middle phalanx of left index finger Obese Plantar fasciitis, bilateral Vitamin D deficiency Surgical History Surgical History (Updated 11/28/23 @ 09:00 by Angela Myers, RT(R)) History of sleeve gastrectomy (05/2020) History of total hysterectomy with bilateral salpingo-oophorectomy (BSO) (04/2006) Due to endometriosis Hx of cholecystectomy (07/2008) Hx of tubal ligation (07/2000) Family History Family History (Updated 11/28/23 @ 09:06 by Angela Myers, RT(R)) Sibling , Due to house fire Hypothyroidism Father Hypertension Cerebrovascular accident, Onset Age: 48 Due to uncontrolled hypertension Seizure disorder As a result of CVA Asthma Depression Mother , Due to house fire Heart disease Sibling Depression Thyroid disorder Other Family history of blood dyscrasia Family history of malignant neoplasm Social History Social History (Updated 11/28/23 @ 13:21 by Maddy Bonilla) Social History: The 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 She may drink an alcoholic beverage once every couple of months. Smoking packs per day: 0.5 Smoking cigarettes per day: 10.0 Years smoked: 10 Smoking pack-years: 5.00 Smoking status: Former smoker Tobacco type: cigarettes Second hand tobacco smoke exposure: Yes Smoking end date: 09/30/17 Alcohol intake: former Substance use: never Substance use type: does not use Lack of Transportation: No Lack of Food: Never True Current Housing: I Have Housing Concerned About Future Housing: No Difficulty Paying Gas/Electric Bills: No Difficulty Paying for Meds: No Currently Unemployed: No Education: High School Diploma/GED Difficulty w/ Childcare or Family Care: No Living arrangements: with family Occupation/Education: occupation 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 HEAD: normocephalic, atraumatic. EYES: PERRLA/EOMI, conjunctivae clear. NOSE: Normal no drainage EARS:TMS clear with good light reflex. THROAT: Pharynx clear, no exudate. NECK: Supple. N
[2024-01-05 08:43] VITALS: BP 100/72; PULSE 65; RESP 15; O2SAT 99
[2024-01-05 09:24] VITALS: BP 112/69; PULSE 63; RESP 15; TEMP 36.4; O2SAT 98
== END 2024-01-05 09:30 | disposition home or self-care (01) ==
PROVIDERS: Emergency Provider Emergency Medicine; PCP Nurse Practitioner Family
DX: R07.81 Pleurodynia (principal); J45.20 Mild intermittent asthma, uncomplicated; I10 Essential (primary) hypertension; E78.00 Pure hypercholesterolemia, unspecified; E03.9 Hypothyroidism, unspecified; E55.9 Vitamin D deficiency, unspecified; E66.9 Obesity, unspecified; Z68.29 Body mass index [BMI] 29.0-29.9, adult; F41.9 Anxiety disorder, unspecified; F31.9 Bipolar disorder, unspecified; Z98.84 Bariatric surgery status; Z87.442 Personal history of urinary calculi; Z87.891 Personal history of nicotine dependence; Z90.710 Acquired absence of both cervix and uterus; Z90.722 Acquired absence of ovaries, bilateral; Z90.79 Acquired absence of other genital organ(s); M47.812 Spondylosis without myelopathy or radiculopathy, cervical region; W10.9XXA Fall (on) (from) unspecified stairs and steps, initial encounter
CPT/HCPCS: 71250; 72125; 99284

== ENCOUNTER 2024-02-15 23:57 | Emergency (ER) | payer OTHER, SELFPAY ==
--- NOTE | ~2024-02-15 | CT_ITS ---
EXAMINATION: CT abdomen pelvis wo con DATE: 02/16/2024 01:40 INDICATION: Left flank pain. TECHNIQUE: Computed tomography (CT) of the abdomen and pelvis was performed without intravenous contr ast. Automated exposure control and iterative reconstruction technique were employed. The dose-length product was 388.38 mGy-cm. COMPARISON: CT abdomen and pelvis 02/12/2022 FINDINGS: The visualized portions of the lung bases demonstrate mild atelectasis. No pleural effusion . The heart size is normal. No pericardial effusion. There are changes of gastric sleeve procedure. T he liver is normal. There are changes of cholecystectomy. The spleen, pancreas, adrenal glands, and r ight kidney are normal. There is a 3 mm stone in left kidney. There are no dilated loops of bowel. Th e appendix is normal. There are no pathologically enlarged lymph nodes. There is no free intraperiton eal fluid. There is mild thoracic and lumbar spondylosis. IMPRESSION: 1. 3 mm nonobstructing left kidney stone. Reviewed, dictated and finalized at [facility].
[2024-02-16 00:01] VITALS: BP 120/93; PULSE 73; RESP 18; TEMP 36.6; O2SAT 99
[2024-02-16 00:16] LABS: Basophils Percent Auto 0.5 % (0.2-1.2); Eosinophils Absolute Auto 0.2 K/mm3 (0-0.3); Hematocrit 41.1 % (37.0-47.0); Hemoglobin 13.2 g/dL (12.0-15.0); Immature Granulocyte Absolute 0.02 K/mm3 (0.00-0.031); Immature Granulocyte Percent A 0.2 % (0-0.5); Lymphocytes Absolute Auto 2.77 K/mm3 (0.9-3.2); Lymphocytes Percent Auto 34.1 % (18.3-44.2); Mean Corpuscular HGB Conc 32.1 g/dl (32-36); Mean Corpuscular Hemoglobin 30.8 pg (26-34); Mean Corpuscular Volume 95.8 fl (80-100); Mean Platelet Volume 9.1 fl (7.4-10.4); Monocytes Absolute Auto 0.5 K/mm3 (0.1-0.6); Monocytes Percent Auto 6.2 % (2.6-8.5); Neutrophils Absolute Auto 4.6 K/mm3 (1.3-6.7); Platelet Count Result 297 k/mm3 (150-375); Red Blood Count 4.29 M/mm3 (4.2-5.4); White Blood Count 8.1 K/mm3 (4.5-10.0)
[2024-02-16 00:33] LABS: Alanine Aminotransferase 21 U/L (6-35); Albumin Level 4.3 g/dL (3.5-5.1); Alkaline Phosphatase 75 U/L (38-126); Anion Gap 5 mmol/L (4-12); Aspartate Amino Transferase 29 U/L (14-36); Bilirubin,Total 0.3 mg/dL (0.2-1.3); Blood Urea Nitrogen 22 mg/dL (7-17); Calcium 10.8 mg/dL (8.4-10.2); Carbon Dioxide 28 mmol/L (22-30); Chloride 104 mmol/L (98-107); Estimated Glomerular Filt Rate > 60; Glucose 96 mg/dL (65-110); Lipase 151 U/L (23-300); Potassium 4.4 mmol/L (3.4-5.0); Sodium 137 mmol/L (137-145)
--- NOTE | 2024-02-16 01:32 | ED.ABDPAIN ---
HPI - Abdominal Pain General Chief Complaint: Abdominal Pain Stated Complaint: Sharp pain in left side, making anxiety worse Time Seen by Provider: 02/16/24 00:31 History of Present Illness HPI narrative: Patient is a 49-year-old female who presents to the emergency department this evening complaining of left sided flank pain radiating to her left lower abdomen. Patient states the pain initially started on Saturday, 2 days ago and has been persistent since then. Patient admits that a few years ago she had a kidney stone which presented similarly. Patient denies any fevers or chills at home, any dysuria or hematuria, and is trying any additional symptoms including nausea, vomiting. She denies any additional symptoms or concerns at this time. Related Data Home Medications Medication Instructions Recorded Confirmed calcium citrate 315 mg 1 tablet PO DAILY 02/19/21 12/17/23 calcium-vitamin D3 6.25 mcg (250 unit) tablet lisdexamfetamine 30 mg capsule 30 mg PO DAILY 03/09/23 12/17/23 (Vyvanse) hydroxyzine pamoate 25 mg capsule 50 mg PO DAILY 11/28/23 12/17/23 lamotrigine 100 mg tablet 150 mg PO DAILY 11/28/23 12/17/23 topiramate 25 mg tablet 50 mg PO DAILY 11/28/23 12/17/23 Allergies Allergy/AdvReac Type Severity Reaction Status Date / Time ibuprofen AdvReac Intermediate Gastrointestinal Verified 02/16/24 00:11 Upset Review of Systems Review of Systems: All systems are reviewed and are negative unless stated otherwise in the HPI. [facility] Past Medical History Medical History Anxiety Bipolar depression Disorder of thyroid Essential hypertension Fatigue due to depression Headache Hypercholesteremia Hypothyroidism Kidney stone Migraine Mild intermittent asthma without complication Nondisplaced fracture of middle phalanx of left index finger Nondisplaced fracture of middle phalanx of left index finger Obese Plantar fasciitis, bilateral Vitamin D deficiency Surgical History Surgical History History of sleeve gastrectomy (05/2020) History of total hysterectomy with bilateral salpingo-oophorectomy (BSO) (04/2006) Due to endometriosis Hx of cholecystectomy (07/2008) Hx of tubal ligation (07/2000) Family History Family History Sibling , Due to house fire Hypothyroidism Father Hypertension Cerebrovascular accident, Onset Age: 48 Due to uncontrolled hypertension Seizure disorder As a result of CVA Asthma Depression Mother , Due to house fire Heart disease Sibling Depression Thyroid disorder Other Family history of blood dyscrasia Family history of malignant neoplasm Social History Social History Social History: The 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 She may drink an alcoholic beverage once every couple of months. Smoking packs per day: 0.5 Smoking cigarettes per day: 10.0 Years smoked: 10 Smoking pack-years: 5.00 Smoking status: Former smoker Tobacco type: cigarettes Second hand tobacco smoke exposure: Yes Smoking end date: 09/30/17 Alcohol intake: former Substance use: never Substance use type: does not use Lack of Transportation: No Lack of Food: Never True Current Housing: I Have Housing Concerned About Future Housing: No Difficulty Paying Gas/Electric Bills: No Difficulty Paying for Meds: No Currently Unemployed: No Education: High School Diploma/GED Difficulty w/ Childcare or Family Care: No Living arrangements: with family Occupation/Education: occupation 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
[2024-02-16] MEDS: MORPHINE SULFATE (*CRX) 2 MG/ML INJ IV PUSH (01:40)
[2024-02-16] MEDS: ONDANSETRON INJ 4 MG/2 ML VIAL IV PUSH (01:40)
[2024-02-16] MEDS: SODIUM CHLORIDE 0.9% IV 1,000 ML 999 ML IV CONT (01:40)
[2024-02-16 03:35] VITALS: BP 118/76; PULSE 83; RESP 18; O2SAT 98
[2024-02-16 04:15] LABS: Appearance Urine Clear (Clear); Bacteria Urine None Seen /hpf; Bilirubin Urine Negative (Negative); Blood Urine Negative (Negative); Color Urine Yellow (Yellow); Glucose Urine UA Negative (Negative); Ketones Urine Negative (Negative); Leukocyte Esterase Ur 3+ LEU/UL (Negative); Nitrate Urine Negative (Negative); Non Pathogenic Casts 0-2; Protein Urine Negative (Negative); RBC Urine 0-2 /hpf (0-2); Specific Grav Ur 1.017 (1.001-1.035); Squamous Epithelial Cell Urine None Seen /hpf (Few); Urobilinogen Urine 0.2 mg/dL (<2.0); WBC Urine 51-100 /hpf (0-3)
[2024-02-16 04:17] LABS: Add Urine Microscopic? YES
[2024-02-16] MEDS: cefTRIAXone 2 GM/NS 100 ML 2 GM/100 ML BAG IVPB (04:24)
[2024-02-16] MEDS: LIDOCAINE 5% PATCH 1 PATCH TRANSDERM (06:02)
== END 2024-02-16 06:06 | disposition home or self-care (01) ==
PROVIDERS: Emergency Provider Emergency Medicine; PCP Nurse Practitioner Family
DX: R10.32 Left lower quadrant pain (principal); Z87.891 Personal history of nicotine dependence; F41.9 Anxiety disorder, unspecified; F31.9 Bipolar disorder, unspecified; I10 Essential (primary) hypertension; E03.9 Hypothyroidism, unspecified; Z87.442 Personal history of urinary calculi; J45.909 Unspecified asthma, uncomplicated
CPT/HCPCS: 36415; 74176; 80053; 81001; 81025; 83605; 83690; 85025; 87077; 87086; 87088; 87186; 96361; 96365; 96375; 99284; A9270; J0696; J2270; J2405; J7030

== ENCOUNTER → 2024-02-17 13:41 | Emergency (ER) | payer OTHER, SELFPAY ==
--- NOTE | ~2024-02-17 | CT_ITS ---
EXAMINATION: CT abdomen pelvis wo con DATE: 02/17/2024 18:44 INDICATION: Left flank pain TECHNIQUE: Computed tomography (CT) of the abdomen and pelvis was performed without intravenous contr ast. Automated exposure control and iterative reconstruction technique were employed. The dose-length product was 310.70 mGy-cm. COMPARISON: 02/16/2024 FINDINGS: Mild dependent atelectasis in bilateral lower lobes. Heart size is normal. No pericardial or pleural effusion. Cholecystectomy clips the gallbladder fossa. Suture line along the greater curvature of the stomach consistent with prior sleeve gastrectomy. Liver, spleen, pancreas, bilateral adrenal glands are normal. Unchanged 2-3 mm left renal stone. No other urolithiasis, hydroureteronephrosis or perine phric/ureteral stranding. Bladder is normal. The uterus is not identified and has likely been surgica lly resected. No free intraperitoneal gas or fluid. No pathologically enlarged abdominal or pelvic ly mphadenopathy. Mild lower thoracic spondylosis. IMPRESSION: 1. Unchanged 2-3 mm nonobstructing left renal stone. No acute intra-abdominal/pelvic process. Reviewed, dictated and finalized at location [facility]. IMPRESSION: 1. Unchanged 2-3 mm nonobstructing left renal stone. No acute intra-abdominal/p elvic process.
[2024-02-17 13:43] VITALS: BP 111/84; PULSE 80; RESP 16; TEMP 36.2; O2SAT 100
[2024-02-17 13:55] LABS: Basophils Percent Auto 0.7 % (0.2-1.2); Eosinophils Absolute Auto 0.2 K/mm3 (0-0.3); Eosinophils Percent Auto 4.1 % (0-4.4); Hematocrit 45.8 % (37.0-47.0); Hemoglobin 14.5 g/dL (12.0-15.0); Immature Granulocyte Absolute 0.01 K/mm3 (0.00-0.031); Immature Granulocyte Percent A 0.2 % (0-0.5); Lymphocytes Absolute Auto 1.97 K/mm3 (0.9-3.2); Lymphocytes Percent Auto 36.5 % (18.3-44.2); Mean Corpuscular HGB Conc 31.7 g/dl (32-36); Mean Corpuscular Hemoglobin 30.9 pg (26-34); Mean Corpuscular Volume 97.4 fl (80-100); Mean Platelet Volume 8.9 fl (7.4-10.4); Monocytes Absolute Auto 0.4 K/mm3 (0.1-0.6); Monocytes Percent Auto 7.4 % (2.6-8.5); Neutrophils Absolute Auto 2.8 K/mm3 (1.3-6.7); Neutrophils Percent Auto 51.1 % (45.5-73.1); Platelet Count Result 307 k/mm3 (150-375); White Blood Count 5.4 K/mm3 (4.5-10.0)
[2024-02-17 14:05] LABS: Alanine Aminotransferase 42 U/L (6-35); Albumin Level 4.3 g/dL (3.5-5.1); Alkaline Phosphatase 78 U/L (38-126); Anion Gap 3 mmol/L (4-12); Aspartate Amino Transferase 48 U/L (14-36); Bilirubin,Total 0.3 mg/dL (0.2-1.3); Blood Urea Nitrogen 18 mg/dL (7-17); Calcium 10.9 mg/dL (8.4-10.2); Carbon Dioxide 31 mmol/L (22-30); Chloride 106 mmol/L (98-107); Estimated Glomerular Filt Rate > 60; Glucose 101 mg/dL (65-110); Potassium 4.9 mmol/L (3.4-5.0); Sodium 140 mmol/L (137-145)
--- NOTE | 2024-02-17 15:39 | ED.GENADULT ---
HPI - General Adult General Chief complaint: Abdominal Pain <Franca Christina January, VIDEO ENGINEER - Last Filed: 02/17/24 15:45> Stated complaint: left flank pain <Franca Christina January, VIDEO ENGINEER - Last Filed: 02/17/24 15:45> Time Seen by Provider: 02/17/24 15:39 <Franca Christina January, - Last Filed: 02/17/24 15:45> Focused HPI: Yazmin Nova is a 49 y/o female who presents with reports of being evaluated here 2 days ago for this left upper back/ flank pain she states that they could not find anything wrong the original pain started 3 days ago. - She was d/c home and since being home the pain has become much worse Pain is more under the left rib cage area but also states this feels similar to kidney stone GENERAL: in no acute distress. HEAD: Normocephalic, atraumatic. CHEST: Clear to auscultation. ?No respiratory distress. HEART: Regular rate and rhythm.? NEURO: ?Alert and oriented x3. Patient screened in triage and initial orders placed.? ?Additional care and disposition to be based upon?diagnostic testing and treatment. <Franca Christina January, Last Filed: 02/17/24 15:45> Related Data Home medications: Home Medications Medication Instructions Recorded Confirmed calcium citrate 315 mg 1 tablet PO DAILY 02/19/21 12/17/23 calcium-vitamin D3 6.25 mcg (250 unit) tablet lisdexamfetamine 30 mg capsule 30 mg PO DAILY 03/09/23 12/17/23 (Vyvanse) hydroxyzine pamoate 25 mg capsule 50 mg PO DAILY 11/28/23 12/17/23 lamotrigine 100 mg tablet 150 mg PO DAILY 11/28/23 12/17/23 topiramate 25 mg tablet 50 mg PO DAILY 11/28/23 12/17/23 <Franca Christina January, - Last Filed: 02/17/24 15:45> Allergies/adverse reactions: Allergies Allergy/AdvReac Type Severity Reaction Status Date / Time ibuprofen AdvReac Intermediate Gastrointestinal Verified 02/17/24 13:42 Upset <Franca Christina January, - Last Filed: 02/17/24 15:45> Review of Systems Review of Systems: CONSTITUTIONAL: Denies fever GASTROINTESTINAL: Reports abdominal pain, nausea, vomiting GENITOURINARY: Reports dysuria <Cristy Weeks PA-C - Last Filed: 02/17/24 20:52> All systems reviewed & are unremarkable except as noted in HPI and below <Cristy Weeks PA-C - Last Filed: 02/17/24 20:52> PMFSH Past Medical History Medical History: Medical History Anxiety Bipolar depression Disorder of thyroid Essential hypertension Fatigue due to depression Headache Hypercholesteremia Hypothyroidism Kidney stone Migraine Mild intermittent asthma without complication Nondisplaced fracture of middle phalanx of left index finger Nondisplaced fracture of middle phalanx of left index finger Obese Plantar fasciitis, bilateral Vitamin D deficiency <Franca Roth, VIDEO ENGINEER - Last Filed: 02/17/24 15:45> Surgical History Surgical History: Surgical History History of sleeve gastrectomy (05/2020) History of total hysterectomy with bilateral salpingo-oophorectomy (BSO) (04/2006) Due to endometriosis Hx of cholecystectomy (07/2008) Hx of tubal ligation (07/2000) <Franca Roth, VIDEO ENGINEER - Last Filed: 02/17/24 15:45> Family History Family History: Family History Sibling , Due to house fire Hypothyroidism Father Hypertension Cerebrovascular accident, Onset Age: 48 Due to uncontrolled hypertension Seizure disorder As a result of CVA Asthma Depression Mother , Due to house fire Heart disease Sibling Depression Thyroid disorder Other Family history of blood dyscrasia Family history of malignant neoplasm <Franca Roth, VIDEO ENGINEER - Last Filed: 02/17/24 15:45> Social History Social History: Social History Social History: The 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 She
--- NOTE | 2024-02-17 17:23 | PC.NURSE ---
pt had UA done in ED yesterday.
[2024-02-17 17:25] LABS: Lipase 151 U/L (23-300)
[2024-02-17 17:42] LABS: D Dimer 0.31 ug/mL (<0.48)
[2024-02-17] MEDS: ONDANSETRON INJ 4 MG/2 ML VIAL IV PUSH (18:16)
[2024-02-17] MEDS: MORPHINE SULFATE (*CRX) 4 MG/ML INJ IV PUSH (18:16)
[2024-02-17 18:45] VITALS: BP 145/78; PULSE 54; RESP 16; O2SAT 100
--- NOTE | 2024-02-17 18:47 | ECG_ITS ---
SEE SCANNED COPY FOR CONFIRMED REPORT MTDD
[2024-02-17 19:16] VITALS: BP 145/78; PULSE 60; RESP 12; O2SAT 99
[2024-02-17] MEDS: FAMOTIDINE 20 MG/2 ML VIAL IV PUSH (19:29)
[2024-02-17 19:45] LABS: Troponin I < 0.012 ng/mL (0.000-0.034)
[2024-02-17] MEDS: PANTOPRAZOLE SODIUM IV 40 MG VIAL IV PUSH (19:58)
[2024-02-17 21:00] VITALS: BP 102/69; PULSE 70; RESP 20; O2SAT 97
[2024-02-17] MEDS: PROCHLORPERAZINE EDISYLATE 10 MG/2 ML VIAL IV PUSH (21:24)
== END | disposition home or self-care (01) ==
PROVIDERS: Family Medicine; Nurse Practitioner Family; Emergency Provider Physician Assistant; PCP Nurse Practitioner Family
DX: N12 Tubulo-interstitial nephritis, not specified as acute or chronic (principal); I10 Essential (primary) hypertension; E03.9 Hypothyroidism, unspecified; E78.00 Pure hypercholesterolemia, unspecified; E55.9 Vitamin D deficiency, unspecified; J45.20 Mild intermittent asthma, uncomplicated; Z98.84 Bariatric surgery status; Z87.442 Personal history of urinary calculi; Z87.891 Personal history of nicotine dependence; Z90.710 Acquired absence of both cervix and uterus; Z90.722 Acquired absence of ovaries, bilateral; Z90.79 Acquired absence of other genital organ(s); N20.0 Calculus of kidney
CPT/HCPCS: 36415; 74176; 80053; 83690; 84484; 85025; 85380; 93005; 96365; 96375; 99284; C9113; J0696; J0780; J2270; J2405

== ENCOUNTER 2024-04-28 13:26 | Emergency (ER) | payer OTHER, SELFPAY ==
[2024-04-28 13:45] VITALS: BP 103/74; PULSE 66; RESP 16; TEMP 36.2; O2SAT 100
--- NOTE | 2024-04-28 13:57 | ED.SKABFB ---
HPI - Skin/Abscess/Foreign Bdy General Chief complaint: Skin/Abscess/Foreign Body Stated complaint: rt knee fluid Time Seen by Provider: 04/28/24 14:00 Source: patient Mode of arrival: ambulatory Limitations: no limitations History of Present Illness HPI narrative: Yazmin is a 49-year-old female patient presenting to the clinic today with complaints a blister and pain to the anterior right knee. She reports that she 1st noticed this this morning. The area is red and painful to palpation. She is concerned that there may be infection there. Denies any known injury or denies being bitten by any insects. Related Data Home Medications Medication Instructions Recorded Confirmed calcium citrate 315 mg 1 tablet PO DAILY 02/19/21 04/28/24 calcium-vitamin D3 6.25 mcg (250 unit) tablet lisdexamfetamine 30 mg capsule 30 mg PO DAILY 03/09/23 04/28/24 (Vyvanse) hydroxyzine pamoate 25 mg capsule 50 mg PO DAILY 11/28/23 04/28/24 lamotrigine 100 mg tablet 150 mg PO DAILY 11/28/23 04/28/24 topiramate 25 mg tablet 50 mg PO DAILY 11/28/23 04/28/24 Allergies Allergy/AdvReac Type Severity Reaction Status Date / Time ibuprofen AdvReac Intermediate Gastrointestinal Verified 04/28/24 14:24 Upset Review of Systems Review of Systems: Pertinent positives per HPI. Patient denies any fever, chills, rash, headache, visual changes, dizziness, cough, runny nose, sore throat, shortness of breath, chest pain, palpitations, nausea, vomiting, diarrhea, constipation, abdominal pain, or any urinary issues. [facility] Past Medical History Medical History Anxiety Bipolar depression Disorder of thyroid Essential hypertension Fatigue due to depression Headache Hypercholesteremia Hypothyroidism Kidney stone Migraine Mild intermittent asthma without complication Nondisplaced fracture of middle phalanx of left index finger Nondisplaced fracture of middle phalanx of left index finger Obese Plantar fasciitis, bilateral Vitamin D deficiency Surgical History Surgical History History of sleeve gastrectomy (05/2020) History of total hysterectomy with bilateral salpingo-oophorectomy (BSO) (04/2006) Due to endometriosis Hx of cholecystectomy (07/2008) Hx of tubal ligation (07/2000) Family History Family History Sibling , Due to house fire Hypothyroidism Father Hypertension Cerebrovascular accident, Onset Age: 48 Due to uncontrolled hypertension Seizure disorder As a result of CVA Asthma Depression Mother , Due to house fire Heart disease Sibling Depression Thyroid disorder Other Family history of blood dyscrasia Family history of malignant neoplasm Social History Social History Social History: The 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 She may drink an alcoholic beverage once every couple of months. Smoking packs per day: 0.5 Smoking cigarettes per day: 10.0 Years smoked: 10 Smoking pack-years: 5.00 Smoking status: Former smoker Tobacco type: cigarettes Second hand tobacco smoke exposure: Yes Smoking end date: 09/30/17 Alcohol intake: former Substance use: never Substance use type: does not use Lack of Transportation: No Lack of Food: Never True Current Housing: I Have Housing Concerned About Future Housing: No Difficulty Paying Gas/Electric Bills: No Difficulty Paying for Meds: No Currently Unemployed: No Education: High School Diploma/GED Difficulty w/ Childcare or Family Care: No Living arrangements: with family Occupation/Education: occupation 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
== END 2024-04-28 15:15 | disposition home or self-care (01) ==
PROVIDERS: Emergency Provider Nurse Practitioner Family; PCP Nurse Practitioner Family
DX: S80.261A Insect bite (nonvenomous), right knee, initial encounter (principal); L08.9 Local infection of the skin and subcutaneous tissue, unspecified; W57.XXXA Bitten or stung by nonvenomous insect and other nonvenomous arthropods, initial encounter; Z87.891 Personal history of nicotine dependence; I10 Essential (primary) hypertension; E78.00 Pure hypercholesterolemia, unspecified; E03.9 Hypothyroidism, unspecified; E55.9 Vitamin D deficiency, unspecified; E66.9 Obesity, unspecified; Z68.28 Body mass index [BMI] 28.0-28.9, adult; F31.9 Bipolar disorder, unspecified; F41.9 Anxiety disorder, unspecified; Z98.84 Bariatric surgery status
CPT/HCPCS: 10140; 99213; G0463

== ENCOUNTER 2024-06-26 19:16 | Emergency (ER) | payer OTHER, SELFPAY ==
--- NOTE | 2024-06-26 19:20 | ED.GENADULT ---
HPI - General Adult General Chief complaint: Abdominal Pain Stated complaint: pt is feeling ill Time Seen by Provider: 06/26/24 19:24 Source: patient, RN notes reviewed and old records reviewed Mode of arrival: ambulatory Limitations: no limitations History of Present Illness HPI narrative: 49-year-old female presents to the [facility] not feeling well. Patient states that she just returned from [facility] yesterday, started with congestion, upset stomach, occasional diarrhea since yesterday. No treatment prior to arrival Onset (ago): day(s) (1) Related Data Home Medications Medication Instructions Recorded Confirmed calcium citrate 315 mg 1 tablet PO DAILY 02/19/21 06/26/24 calcium-vitamin D3 6.25 mcg (250 unit) tablet lisdexamfetamine 30 mg capsule 30 mg PO DAILY 03/09/23 06/26/24 (Vyvanse) hydroxyzine pamoate 25 mg capsule 50 mg PO DAILY 11/28/23 06/26/24 lamotrigine 100 mg tablet 150 mg PO DAILY 11/28/23 06/26/24 topiramate 25 mg tablet 50 mg PO DAILY 11/28/23 06/26/24 Allergies Allergy/AdvReac Type Severity Reaction Status Date / Time ibuprofen AdvReac Intermediate Gastrointestinal Verified 06/26/24 19:25 Upset Review of Systems Review of Systems: All systems reviewed & are unremarkable except as noted in HPI and below Constitutional: Constitutional: Reports as per HPI, Reports body ache(s) and Reports fatigue Eyes: Eyes: Reports no additional eye complaints ENT: Reports as per HPI and Reports nasal congestion Cardiovascular: Cardiovascular: Reports no additional cardiovascular complaints, Denies chest pain and Denies dyspnea Respiratory: Respiratory: Reports no additional respiratory complaints, Denies chest congestion, Denies cough and Denies dyspnea Gastrointestinal: Gastrointestinal: Reports as per HPI, Denies abdominal pain, Reports diarrhea, Reports nausea and Denies vomiting Musculoskeletal: Musculoskeletal: Reports no additional musculoskeletal complaints Integumentary/Breasts: Skin/Breast: Reports system reviewed and no additional complaints, except as docu Neurologic: Reports system reviewed and no additional complaints, except as documented Psychiatric: Psychiatric: Reports no additional psychiatric complaints Allergic/Immunologic: Allergic/Immunologic: Reports no additional allergic/immunologic complaints PMFSH Past Medical History Medical History Anxiety Bipolar depression Disorder of thyroid Essential hypertension Fatigue due to depression Headache Hypercholesteremia Hypothyroidism Kidney stone Migraine Mild intermittent asthma without complication Nondisplaced fracture of middle phalanx of left index finger Nondisplaced fracture of middle phalanx of left index finger Obese Plantar fasciitis, bilateral Vitamin D deficiency Surgical History Surgical History History of sleeve gastrectomy (05/2020) History of total hysterectomy with bilateral salpingo-oophorectomy (BSO) (04/2006) Due to endometriosis Hx of cholecystectomy (07/2008) Hx of tubal ligation (07/2000) Family History Family History Sibling , Due to house fire Hypothyroidism Father Hypertension Cerebrovascular accident, Onset Age: 48 Due to uncontrolled hypertension Seizure disorder As a result of CVA Asthma Depression Mother , Due to house fire Heart disease Sibling Depression Thyroid disorder Other Family history of blood dyscrasia Family history of malignant neoplasm Social History Social History Social History: The 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 She may drink an alcoholic beverage once every couple of months. Smoking packs per day: 0.5 Smoking cigarettes per day: 10.0 Years smoked:
[2024-06-26 19:26] VITALS: BP 117/85; PULSE 92; RESP 14; TEMP 36.2; O2SAT 100
[2024-06-29 14:27] LABS: EDCOVIDSCREEN Positive (Negative); EDINFLUASCREEN Negative (Negative); EDINFLUBSCREEN Negative (Negative)
== END 2024-06-26 19:43 | disposition home or self-care (01) ==
PROVIDERS: Emergency Provider Nurse Practitioner; PCP Nurse Practitioner Family
DX: U07.1 COVID-19 (principal); I10 Essential (primary) hypertension; E78.00 Pure hypercholesterolemia, unspecified; E03.9 Hypothyroidism, unspecified; J45.909 Unspecified asthma, uncomplicated; E66.9 Obesity, unspecified; Z68.28 Body mass index [BMI] 28.0-28.9, adult; E55.9 Vitamin D deficiency, unspecified; Z98.84 Bariatric surgery status; F31.9 Bipolar disorder, unspecified; F41.9 Anxiety disorder, unspecified; Z87.891 Personal history of nicotine dependence
CPT/HCPCS: 87426; 87635; 87804; 99213; G0463

== ENCOUNTER 2024-08-30 08:10 | Emergency (ER) | payer OTHER, SELFPAY ==
[2024-08-30 08:54] VITALS: BP 117/74; PULSE 69; RESP 18; TEMP 36.1; O2SAT 100
--- NOTE | 2024-08-30 09:14 | ED_ITS ---
HPI - URI/Sore Throat General Chief Complaint: Upper Respiratory Infection Stated Complaint: sob and strep symptoms Time Seen by Provider: 08/30/24 09:15 History of Present Illness HPI Narrative: 49 y/o female presented for c/o sore throat, nasal congestion and drainage, and cough. Onset 2 days. States she woke feeling achy today. Denies sob, wheezing, n/v/d/f/c. Not taking anything for symptoms. Related Data Home Medications Medication Instructions Recorded Confirmed calcium 315 mg (as 1 tablet PO DAILY 02/19/21 08/30/24 citrate)-vitamin D3 6.25 mcg (250 unit) tablet Allergies Allergy/AdvReac Type Severity Reaction Status Date / Time ibuprofen AdvReac Intermediate Gastrointestinal Verified 08/30/24 08:49 Upset Review of Systems Review of Systems: CONSTITUTIONAL: Denies fever, chills, or sweats. EYES: Denies visual changes, redness, or discharge. ENT: Reports rhinorrhea, congestion, sore throat CARDIOVASCULAR: Denies chest pain, palpitations, or edema. RESPIRATORY: Denies dyspnea. GASTROINTESTINAL: Denies abdominal pain, nausea, vomiting, or diarrhea. SKIN: Denies rash, itching, or wounds. MUSCULOSKELETAL: Denies back pain, joint pain NEUROLOGIC: Denies headache PMFSH Past Medical History Medical History Anxiety Bipolar depression Disorder of thyroid Essential hypertension Fatigue due to depression Headache Hypercholesteremia Hypothyroidism Kidney stone Migraine Mild intermittent asthma without complication Nondisplaced fracture of middle phalanx of left index finger Nondisplaced fracture of middle phalanx of left index finger Obese Plantar fasciitis, bilateral Vitamin D deficiency Surgical History Surgical History History of sleeve gastrectomy (05/2020) History of total hysterectomy with bilateral salpingo-oophorectomy (BSO) (04/2006) Due to endometriosis Hx of cholecystectomy (07/2008) Hx of tubal ligation (07/2000) Family History Family History Sibling , Due to house fire Hypothyroidism Father Hypertension Cerebrovascular accident, Onset Age: 48 Due to uncontrolled hypertension Seizure disorder As a result of CVA Asthma Depression Mother , Due to house fire Heart disease Sibling Depression Thyroid disorder Other Family history of blood dyscrasia Family history of malignant neoplasm Social History Social History Social History: The 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 She may drink an alcoholic beverage once every couple of months. 08/26/24 very confident with medical forms Smoking packs per day: 0.5 Smoking cigarettes per day: 10.0 Years smoked: 10 Smoking pack-years: 5.00 Smoking status: Former smoker Tobacco type: cigarettes Second hand tobacco smoke exposure: Yes Smoking end date: 09/30/17 Alcohol intake: former Substance use: never Substance use type: does not use Lack of Transportation: No Lack of Food: Never True Current Housing: I Have Housing Concerned About Future Housing: No Difficulty Paying Gas/Electric Bills: No Difficulty Paying for Meds: No Currently Unemployed: No Education: High School Diploma/GED Difficulty w/ Childcare or Family Care: No Living arrangements: with family Occupation/Education: occupation 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 EYES: conjunctivae clear ENT: Mucous membranes moist. TM pearly davalos with normal light reflex bilaterally; no tragal tenderness. Oropharynx not erythematous without lesions. No drooling, no hoarseness, no trismus, uvula midline. No tripod positioning, hot potato voice, or soft palate swelling. NECK: Supple. No lymphadenopathy CHEST: Clear to auscultation, breath sounds equal. No respiratory distress, speaks in full sentences. HEART: Regular rate and rhythm. No murmur heard. SKIN: Warm, dry, no rash. NEURO: Alert and oriented x3. Course Course Emergency Course: Patient is aware of diagnosis, understands and agrees to treatment plan. Anticipatory guidance given. Patient agrees to follow-up as directed and is aware of reasons to seek care at the emergency department. Portions of this record may have been created with voice recognition software Level of Care: Express Care Visit Vital Signs Vital signs: Vital Signs Temperature 96.9 F L 08/30/24 08:54 Pulse Rate 69 08/30/24 08:54 Respiratory Rate 18 08/30/24 08:54 Blood Pressure 117/74 08/30/24 08:54 Pulse Oximetry 100 08/30/24 08:54 Oxygen Delivery Room Air 08/30/24 08:54 Temperature 96.9 F L 08/30/24 08:54 Pulse Rate 69 08/30/24 08:54 Respiratory Rate 18 08/30/24 08:54 Blood Pressure 117/74 08/30/24 08:54 Pulse Oximetry 100 08/30/24 08:54 Oxygen Delivery Room Air 08/30/24 08:54 MDM - URI/Sore Throat MDM Narrative Medical decision making narrative: Negative flu, COVID, and strep result reviewed with pt. Advise supportive treatments. Patient is appropriate for outpatient treatment and follow-up. Differential Diagnosis Differential diagnosis: Likely upper respiratory infection, viral infection and pharyngitis Discharge Plan Discharge Clinical Impression: Upper respiratory infection Patient Disposition: Home, Self-Care Condition: Stable Instructions: Antibiotic Form, Upper Respiratory Infection (ED) Additional Instructions: Flu negative Your rapid covid test was negative today. It may be too early to detect the virus, therefore we recommend retesting at home in 1-2 days Continue to follow general precautions: frequent handwashing, wear a mask, isolate/social distance, and avoid crowds if you have a fever. You must be fever free for 24 hours without the use of fever reducing medication (Tylenol/ibuprofen) before returning to work/school/crowds. Rapid strep swab was negative today You will be notified in a few days if the culture comes back positive for strep, and appropriate antibiotics will be called in at that time. if symptoms are due to a viral illness, it is not treated with antibiotics. Viral symptoms can be present for up to 10-14 days. Recommendations: Flonase spray and Zyrtec for sinus congestion Cough syrup may cause drowsiness; avoid driving or take it at night time. Tylenol every 8 hours as needed for pain/fever Soft foods, cool liquids, warm tea. Gargle with warm saltwater twice a day. Chloraseptic spray and throat lozenges. Rest and stay hydrated. --Follow up with your PCP --Go to the ER immediately if you cannot swallow your saliva, trouble breathing/wheezing, throat swelling, pain is persistent and severe Prescriptions: No Action calcium citrate-vitamin D3 315 mg-6.25 mcg (250 unit) Tablet 1 tablet PO DAILY lamotrigine 100 mg tablet 100 mg PO DAILY Qty: 90 0RF sertraline 25 mg tablet 25 mg PO DAILY Qty: 30 2RF topiramate 25 mg tablet 25 mg PO DAILY Qty: 42 0RF Rx Instructions: 1 tab po daily for 1 week, then 1 tab po bid for 1 week, then 2 tab in morning and 1 tab in evening for 1 week, then 50 mg po bid. Follow-up/Referrals: Kayla Berumen APRN [Primary Care Provider] - Stand Alone Forms: Work/School Release IP Time of Disposition: 09:23
[2024-08-30 09:18] LABS: EDINFLUASCREEN Negative (Negative); EDINFLUBSCREEN Negative (Negative); EDSTREPNEGPOS1 Negative (Negative)
[2024-08-30 09:18] LABS: EDCOVIDSCREEN Negative (Negative)
== END 2024-08-30 09:25 | disposition home or self-care (01) ==
PROVIDERS: Emergency Provider Nurse Practitioner Family; PCP Nurse Practitioner Family
DX: J06.9 Acute upper respiratory infection, unspecified (principal); Z20.822 Contact with and (suspected) exposure to COVID-19; Z87.891 Personal history of nicotine dependence; I10 Essential (primary) hypertension; E78.00 Pure hypercholesterolemia, unspecified; E03.9 Hypothyroidism, unspecified; J45.909 Unspecified asthma, uncomplicated; E66.9 Obesity, unspecified; Z68.30 Body mass index [BMI] 30.0-30.9, adult; E55.9 Vitamin D deficiency, unspecified; Z98.84 Bariatric surgery status
CPT/HCPCS: 87081; 87426; 87804; 87880; 99213; G0463

== ENCOUNTER 2025-01-18 09:57 | Emergency (ER) | payer OTHER, SELFPAY ==
--- NOTE | ~2025-01-18 | CT_ITS ---
CT of the Abdomen and Pelvis: Indication: Abdominal pain Technique: 2.5 mm axial scans were obtained through the abdomen and pelvis following intravenous adm inistration of 100 cc of Omnipaque 350. Dose reduction technique was used on this scan by utilizing a utomated exposure control and iterative reconstruction technique. The dose-length product (DLP) was 3 65.99 mGy-cm. COMPARISON: 02/17/2024 Findings: Scans through the lung bases are unremarkable. The liver, spleen, pancreas, adrenals and kidneys are within normal limits. Cholecystectomy clips are present. No evidence of aortic aneurysm. No lymphadenopathy. No bowel obstruction or bowel wall thickening. Evidence of prior gastric surgery. Images through the pelvis were performed. Urinary bladder unremarkable. No pelvic mass seen. No ascit es. Impression: No acute abnormalities seen. Reviewed, dictated and finalized at [facility]. Impression: No acute abnormalities seen.
[2025-01-18 10:03] VITALS: BP 136/88; PULSE 72; RESP 15; TEMP 36.5; O2SAT 99
[2025-01-18 10:21] LABS: Basophils Percent Auto 0.6 % (0.2-1.2); Eosinophils Absolute Auto 0.1 K/mm3 (0-0.3); Eosinophils Percent Auto 1.9 % (0-4.4); Hematocrit 44.1 % (37.0-47.0); Hemoglobin 13.7 g/dL (12.0-15.0); Immature Granulocyte Absolute 0.01 K/mm3 (0.00-0.031); Immature Granulocyte Percent A 0.2 % (0-0.5); Lymphocytes Absolute Auto 1.48 K/mm3 (0.9-3.2); Lymphocytes Percent Auto 23.3 % (18.3-44.2); Mean Corpuscular HGB Conc 31.1 g/dl (32-36); Mean Corpuscular Hemoglobin 30.4 pg (26-34); Mean Platelet Volume 9.2 fl (7.4-10.4); Monocytes Absolute Auto 0.5 K/mm3 (0.1-0.6); Monocytes Percent Auto 7.7 % (2.6-8.5); Neutrophils Absolute Auto 4.2 K/mm3 (1.3-6.7); Neutrophils Percent Auto 66.3 % (45.5-73.1); Platelet Count Result 285 k/mm3 (150-375); Red Cell Distribution Width 13.3 % (11.5-14.5); White Blood Count 6.3 K/mm3 (4.5-10.0)
--- NOTE | 2025-01-18 10:22 | ED_ITS ---
HPI - Female Genitourinary General Chief complaint: Urogenital-Female Stated complaint: right side pain Time Seen by Provider: 01/18/25 10:04 History of Present Illness HPI Narrative: Patient is a 49-year-old female who presents to the complaints of right flank pain that has been intermittent for the past week. She reports she has history of kidney stones, with the last one being in 2021. Patient endorses a history of a hysterectomy, cholecystectomy, and weight loss surgery. She denies any recent fevers, chest pain, shortness of breath, urinary symptoms. Patient reports her right flank pain radiates to her R abdomen. Related Data Home Medications ?Medication ?Instructions ?Recorded ?Confirmed ?Last Taken ?Type calcium 315 mg (as 1 tablet PO DAILY 02/19/21 09/15/24 02/07/22 History citrate)-vitamin D3 6.25 mcg (250 unit) tablet Allergies Allergy/AdvReac Type Severity Reaction Status Date / Time ibuprofen AdvReac Intermediate Gastrointestinal Verified 01/18/25 10:03 Upset Review of Systems 2 Review of Systems: All systems reviewed & are unremarkable except as noted in HPI and below PMFSH Past Medical History Medical History Obese Essential hypertension Migraine Disorder of thyroid Headache Fatigue due to depression Nondisplaced fracture of middle phalanx of left index finger Nondisplaced fracture of middle phalanx of left index finger Bipolar depression Anxiety Kidney stone Hypercholesteremia Hypothyroidism Mild intermittent asthma without complication Plantar fasciitis, bilateral Vitamin D deficiency Surgical History Surgical History History of total hysterectomy with bilateral salpingo-oophorectomy (BSO) (04/2006) Due to endometriosis History of sleeve gastrectomy (05/2020) Hx of cholecystectomy (07/2008) Hx of tubal ligation (07/2000) Family History Family History Sibling , Due to house fire Hypothyroidism Father Hypertension Cerebrovascular accident, Onset Age: 48 Due to uncontrolled hypertension Seizure disorder As a result of CVA Asthma Depression Mother , Due to house fire Heart disease Sibling Depression Thyroid disorder Other Family history of blood dyscrasia Family history of malignant neoplasm Social History Social History Social History: The 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 She may drink an alcoholic beverage once every couple of months. 09/14/24 very confident with medical forms Smoking packs per day: 0.5 Smoking cigarettes per day: 10.0 Years smoked: 10 Smoking pack-years: 5.00 Smoking status: Former smoker Tobacco type: cigarettes Second hand tobacco smoke exposure: Yes Smoking end date: 09/30/17 Alcohol intake: former Substance use: never Substance use type: does not use Do You Feel Safe in your Home?: Yes Lack of Transportation: No Lack of Food: Never True Current Housing: I Have Housing Concerned About Future Housing: No Difficulty Paying Gas/Electric Bills: No Difficulty Paying for Meds: No Currently Unemployed: No Education: High School Diploma/GED Difficulty w/ Childcare or Family Care: No Living arrangements: with family Occupation/Education: occupation 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 HEAD: Normocephalic, atraumatic. NECK: Supple. No adenopathy, no masses. RESPIRATORY: Airway patent, respirations nonlabored. Clear to auscultation bilaterally, no rales, rhonchi, wheezing. CARDIOVASCULAR: Regular rate and rhythm without murmurs, rubs, or gallops. Peripheral pulses 2+ and equal bilaterally. +R-sided CVA tenderness ABDOMINAL: Soft, tender RUQ and RLQ, nondistended, no hepatosplenomegaly. Normoactive BS. MUSCULOSKELETAL: Moves all extremities. Strength/ROM intact without gross deformities. SKIN: Warm, dry, normal color. No rashes. NEURO: A&O X3. Speech clear. Cranial nerves II-XII intact. No ataxic movements. PSYCHIATRIC: Appropriate mood and affect. Normal interaction. Course Vital Signs Vital signs: Vital Signs Temperature 36.5 C 01/18/25 10:03 Pulse Rate 72 01/18/25 10:03 Respiratory Rate 15 01/18/25 10:03 Blood Pressure 136/88 01/18/25 10:03 Pulse Oximetry 99 01/18/25 10:03 Oxygen Delivery Room Air 01/18/25 10:03 Temperature 36.5 C 01/18/25 10:03 Pulse Rate 72 01/18/25 10:03 Respiratory Rate 15 01/18/25 10:03 Blood Pressure 136/88 01/18/25 10:03 Pulse Oximetry 99 01/18/25 10:03 Oxygen Delivery Room Air 01/18/25 10:03 MDM - Female Genitourinary MDM Narrative Medical decision making narrative: Patient is a 49-year-old female who presents to the complaints of right flank pain that has been intermittent for the past week. She reports she has history of kidney stones, with the last one being in 2021. Patient endorses a history of a hysterectomy, cholecystectomy, and weight loss surgery. She denies any recent fevers, chest pain, shortness of breath, urinary symptoms. Patient reports her right flank pain radiates to her R abdomen. Labs Ordered: CBC, CMP, UA Imaging Ordered: CT abdomen pelvis scan Medications Ordered: Clindamycin Results: Patient's urinalysis indicates leukocytes of 2+ and white blood cell count of 51-100. All other lab work was within normal limits. Pt's abdominal CT scan indicates Scans through the lung bases are unremarkable. The liver, spleen, pancreas, adrenals and kidneys are within normal limits. Cholecystectomy clips are present. No evidence of aortic aneurysm. No lymphadenopathy. No bowel obstruction or bowel wall thickening. Evidence of prior gastric surgery. Images through the pelvis were performed. Urinary bladder unremarkable. No pelvic mass seen. No ascites. Diagnosis: Urinary tract infection Patient Education/Shared MDM: Results of lab work and imaging shared with patient. She endorses improvement following medication administration. Patient strongly advised to maintain hydration status upon discharge and follow-up with her PCP as soon as possible. She will be discharged home with a prescription for Clindamycin and Pyridium. Strict return precautions provided. Patient verbalized understanding is in agreement with plan. Vital signs stable at time of discharge. All questions answered. Differential Diagnosis Differential diagnosis: Likely urinary tract infection and other (Kidney stone, constipation, pyelonephritis) Lab Data Attestation: I reviewed the patient's lab results. 01/18/25 10:14 01/18/25 10:14 Labs: Lab Results 01/18/25 Range/Units 10:14 WBC 6.3 (4.5-10.0) K/mm3 RBC 4.50 (4.2-5.4) M/mm3 Hgb 13.7 (12.0-15.0) g/dL Hct 44.1 (37.0-47.0) % MCV 98.0 (80-100) fl MCH 30.4 (26-34) pg MCHC 31.1 L (32-36) g/dl RDW 13.3 (11.5-14.5) % Plt Count 285 (150-375) k/mm3 MPV 9.2 (7.4-10.4) fl Immature Gran % (Auto) 0.2 (0-0.5) % Neut % (Auto) 66.3 (45.5-73.1) % Lymph % (Auto) 23.3 (18.3-44.2) % [place] % (Auto) 7.7 (2.6-8.5) % Eos % (Auto) 1.9 (0-4.4) % Baso % (Auto) 0.6 (0.2-1.2) % Lymph # (Auto) 1.48 (0.9-3.2) K/mm3 [place] # (Auto) 0.5 (0.1-0.6) K/mm3 Eos # (Auto) 0.1 (0-0.3) K/mm3 Baso # (Auto) 0.0 (0.0-0.1) K/mm3 Abs Immat Gran (auto) 0.01 (0.00-0.031) K/mm3 Absolute Neuts (auto) 4.2 (1.3-6.7) K/mm3 Absolute Nucleated RBC 0.000 (0.0-0.012) K/mm3 Nucleated RBC % 0.0 (0.0-0.2) % Sodium 140 (137-145) mmol/L Potassium 4.0 (3.4-5.0) mmol/L Chloride 105 (98-107) mmol/L Carbon Dioxide 25 (22-30) mmol/L Anion Gap 10 (4-12) mmol/L BUN 20 H (7-17) mg/dL Creatinine 0.73 (0.7-1.0) mg/dL Estim Creat Clear Calc Not Reportable Estimated GFR > 60 (59 - ) Glucose 65 (65-110) mg/dL Calcium 10.8 H (8.4-10.2) mg/dL Total Bilirubin 0.4 (0.2-1.3) mg/dL AST 30 (14-36) U/L ALT 23 (6-35) U/L Alkaline Phosphatase 91 (38-126) U/L Total Protein 8.0 (6.3-8.2) g/dL Albumin 4.4 (3.5-5.1) g/dL Urine Color Yellow (Yellow) Urine Appearance Clear (Clear) Urine pH 6.5 (5.0-9.0) Ur Specific [place] 1.008 (1.001-1.035) Urine Protein Negative (Negative) mg/dL Urine Glucose (UA) Negative (Negative) mg/dL Urine Ketones Negative (Negative) mg/dL Ur Blood (Man) Negative (Negative) Urine Nitrate Negative (Negative) Urine Bilirubin Negative (Negative) Urine Urobilinogen 0.2 (<2.0) mg/dL Leukocyte Esterase Rfl 2+ H (Negative) CLARA/UL Urine RBC 0-2 (0-2) /hpf Urine WBC 51-100 H (0-3) /hpf Ur Squamous Epith Cells None seen (Few) /hpf Urine Bacteria None seen /hpf Urine Casts 0-2 Imaging Data Attestation: I personally reviewed and interpreted this imaging study as follows: Radiologist's impression: Impressions Abdomen/Pelvis CT 01/18/25 10:58 Impression: No acute abnormalities seen. Discharge Plan Discharge Clinical Impression: Urinary tract infection Patient Disposition: Home Condition: Stable Instructions: Antibiotic Form, Urinary Tract Infection in Women (ED) Additional Instructions: Please return to the ER with any worsening symptoms. Follow-up with primary care provider as soon as possible. Take all medications as prescribed, including regularly scheduled medications. Complete your full dose of antibiotics. You may take Pyridium for bladder discomfort. Keep in mind this may turn your urine orange in color. Patient Language: Djib[place]ian Prescriptions: New clindamycin HCl [Cleocin HCl] 300 mg capsule 300 mg PO BID Qty: 14 0RF phenazopyridine [Pyridium] 200 mg tablet 200 mg PO TID PRN (Reason: pain) Qty: 10 0RF No Action calcium citrate-vitamin D3 315 mg-6.25 mcg (250 unit) Tablet 1 tablet PO DAILY phentermine 37.5 mg tablet 37.5 mg PO DAILY Qty: 30 0RF Rx Instructions: must administer 30 minutes before or 1-2 hours after breakfast lamotrigine 100 mg tablet 100 mg PO DAILY Qty: 90 0RF sertraline 50 mg tablet 50 mg PO DAILY Qty: 90 0RF topiramate 50 mg tablet 50 mg PO BID Qty: 180 3RF Follow-up/Referrals: Kayla Berumen APRN [Primary Care Provider] - Stand Alone Forms: Work/School Release IP Time of Disposition: 11:33
[2025-01-18 10:25] LABS: Add Urine Microscopic? YES; Appearance Urine Clear (Clear); Bacteria Urine None Seen /hpf; Bilirubin Urine Negative (Negative); Blood Urine Negative (Negative); Color Urine Yellow (Yellow); Glucose Urine UA Negative (Negative); Ketones Urine Negative (Negative); Leukocyte Esterase Ur 2+ LEU/UL (Negative); Nitrate Urine Negative (Negative); Non Pathogenic Casts 0-2; Protein Urine Negative (Negative); RBC Urine 0-2 /hpf (0-2); Specific Grav Ur 1.008 (1.001-1.035); Squamous Epithelial Cell Urine None Seen /hpf (Few); Urobilinogen Urine 0.2 mg/dL (<2.0); WBC Urine 51-100 /hpf (0-3); pH Urine 6.5 (5.0-9.0)
[2025-01-18 10:32] LABS: Alanine Aminotransferase 23 U/L (6-35); Albumin Level 4.4 g/dL (3.5-5.1); Alkaline Phosphatase 91 U/L (38-126); Anion Gap 10 mmol/L (4-12); Aspartate Amino Transferase 30 U/L (14-36); Bilirubin,Total 0.4 mg/dL (0.2-1.3); Blood Urea Nitrogen 20 mg/dL (7-17); Calcium 10.8 mg/dL (8.4-10.2); Carbon Dioxide 25 mmol/L (22-30); Chloride 105 mmol/L (98-107); Estimated Glomerular Filt Rate > 60; Glucose 65 mg/dL (65-110); Sodium 140 mmol/L (137-145)
--- OUTSIDE RECORDS SUMMARY | 2025-01-18 11:10 | XMS_ITS | Clinical Summary ---
Author Organization [facility] Address [address] [facility] [place] [address] Care Team Providers Care [employer] Name Role Phone Kayla Berumen APRN-CUSTOMER SERVICE MANAGER Primary Care Provider Source Comments [facility],non-owned Affiliates and Associated Physician Practices is amultiple site organization consisting of ambulatory clinics and hospital sitesin [place], [place], [place] and [place]. This disclosure is being madepursuant to the Care Everywhere program and may not contain all information available regarding this patient. Last updated 18.[facility] Allergies No known active allergies Medications * This document contains information received from the source organization and may not represent a complete record from that organization. * Be aware that medications may not be up to date on this document. Alwaysverify current medications with the patient. buPROPion SR 12hr (WELLBUTRIN-SR) 100 MG tablet TK 1 T PO BID AT 8AM AND 4PM 0 09/11/2018 Active cyclobenzaprine (FLEXERIL) 10 MG tablet TK 1 T PO Q 12 H FOR 15 DAYS PRN 0 07/07/2018 Active vitamin D, ergocalciferol, (DRISDOL) 70226 UNITS capsule TK 1 C PO Q WK IN THE MORNING 2 09/12/2018 Active fluticasone propionate (FLONASE) 50 MCG/ACT nasal spray SHAKE LQ AND U 1 SPR IEN QD 0 06/11/2018 Active levothyroxine (SYNTHROID) 25 MCG tablet TK 1 T PO QAM 2 09/12/2018 Active naltrexone (REVIA) 50 MG tablet TK 1 T PO QHS 0 07/01/2018 Active naproxen (NAPROSYN) 500 MG tablet TK 1 T PO Q 12 H PRF 15 DAYS 0 09/12/2018 Active traMADol (ULTRAM) 50 MG tablet TK 1 T PO Q 8 H PRF 7 DAYS 0 07/07/2018 Active Multiple Vitamin (MULTI VITAMIN PO) Take 1 tablet by mouth once daily Active Cyanocobalamin (VITAMIN B 12 PO) Take 1 tablet by mouth once daily Active Potassium 75 MG Take 1 tablet by mouth once daily Active Melatonin 10 MG Take 1 tablet by mouth once daily Active Active Problems Problem Noted Date Diagnosed Date Falls frequently 09/17/2018 Memory loss 09/17/2018 Recurrent major depressive disorder, in partial remission 09/17/2018 Social History Tobacco Use Types Packs/Day Years Used Date Smoking Tobacco: Passive Smo ke Exposure - Never Smoker Smokeless Tobacco: Never Alcohol Use Standard Drinks/Week Comments No 0 (1 standard drink = 0.6 oz pur e alcohol) Comments No Sex and Gender Information Value Date Recorded Sex Assigned at Not on file Legal Sex Female 7:41 AM 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 Gender Identity Not on file Sexual Orientation Not on file Last Filed Vital Signs Vital Sign Reading Time Taken Comments Blood Pressure 114/76 09/17/2018 2:01 PM 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 Pulse 84 09/17/2018 2:01 PM 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 Temperature 36.7 C (98 F) 09/17/2018 2:01 PM 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 Respiratory Rate - - Oxygen Saturation - - Inhaled Oxygen Concentration - - Weight 86.2 kg (190 lb) 09/17/2018 2:01 PM 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 Height 149.9 cm (4' 11) 09/17/2018 2:01 PM 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 Body Mass Index 38.38 09/17/2018 2:01 PM 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 Plan of Treatment Health Maintenance Due Date Last Done Comments COLOGUARD (AGES 45-75) - COLON CA SCREENING 1974 COLON MONITORING 1974 COLONOSCOPY - COLON CA SCREENING 1974 CT COLONOGRAPHY - COLON CA SCREENING 1974 Colorectal Cancer Screening 1974 FIT - COLON CA SCREENING 1974 FLEX SIG - COLON CA SCREENING 1974 LIPID TESTING 1974 MAMMOGRAM 1974 PAP SMEAR 1974 HIV SCREENING 1989 HEPATITIS C SCREENING 01/31/1992 DTAP/TDAP/TD VACCINES (1 - Tdap) 1993 HEPATITIS B VACCINE (1 of 3 - 19+ 3-dose series) 1993 PNEUMOCOCCAL VACCINE 50+ (1 of 1 - PCV) 02/05/2024 ZOSTER VACCINE (1 of 2) 02/05/2024 COVID-19 VACCINE (1 - season) 2024 DEPRESSION SCREENING 09/30/2024 INFLUENZA VACCINE (Season Ended) 2025 07/25/2021, 07/13/2020, 07/02/2019, Additional history exists HIB VACCINE Aged Out No longer eligi ble based on patient's age to complete this topic HPV VACCINE Aged Out No longer eligi ble based on patient's age to complete this topic MENINGOCOCCAL (Group B) VACCINE SHARED DECISION-MAKING Aged Out No longer eligible based on patient's age to complete this topic MENINGOCOCCAL GROUPS A/C/Y/W VACCINE Aged Out No longer eligible based on patient's age to complete this topic Insurance [facility] Care Teams Fab[employer]ator [employer] Relationship Specialty Start Date End Date Kayla Berumen APRN-CUSTOMER SERVICE MANAGER [address] [place] [id number] PCP - General 09/08/18
[2025-01-18] MEDS: ACETAMINOPHEN 325 MG TABLET 650 MG PO (11:11)
[2025-01-18] MEDS: SODIUM CHLORIDE 0.9% IV 1,000 ML 999 ML IV CONT (11:11)
--- OUTSIDE RECORDS SUMMARY | 2025-01-18 11:11 | XMS_ITS ---
Author Organization [facility] Address [address] [place] [address] Care Team Providers Care Special Education Resource Teacher Name Role Phone Jannette Currie Primary Care Provider [phone] REASON FOR VISIT follow-up Social History Sex Assigned At : Social History Observation Description Sex Assigned At Female Encounters Encounter Location Date Provider Diagnosis [place] [address] [place] [address] 02/18/2024 Jannette Currie Plan Of Treatment No Information Progress Notes * Yazmin BUCIODOB:1975 (49 yo F)Acc No.[id number]:02/18/2024 UNLOCKED PROGRESS NOTE Patient: Yazmin BLEVINS Provider: GORGE Rodriguez, CURER FOAM RUBBER, TORTILLA MAKER-C :1975 A ge:49 Y S ex:Female Date:02/18/2024 Address:[address] [place], [place] [id number] Subjective: * Chief Complaints: * 1 . Follow-up. * Medical History: Objective: * Vitals: Assessment: Plan: * Treatment: * * Electronic signature of Otilia Currie [id number] on 01/18/2025 at 11:11 AM CDT Sign off status: Pending * Provider: GORGE Rodriguez, CURER FOAM RUBBER, TORTILLA MAKER-C Date: 0 02/18/2024 Generated for Neili ng/Faibethg/eTransmitting on: 01/18/2025 11:11 AM CDT
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
[2025-01-18 11:12] VITALS: BP 119/71; PULSE 70; RESP 15; O2SAT 100
--- OUTSIDE RECORDS SUMMARY | 2025-01-18 11:12 | XMS_ITS | Data Portability ---
Author Organization [facility], Main Office Address [address] [place] [address] Care Team Providers Care Shampooer Name Role Phone KAYLA ÁLVAREZ Primary Care Provider [phone] KAYLA ÁLVAREZ Referring Provider [phone] Assessment Encounter Date Assessment Date Assessment LastModified by Organization Details LastModified Time 04/08/2023 04/08/2023 D/w pt about her findings and further plan of care. Meds as directed. OTC symptomatic Rx explained in detail. Very good liquid intake explained. Proper hand hygiene explained. Educated about alarming symptoms to monitor at home and call us back Or get checked in ED if any concerns. F/u as directed. Not available 04/08/2023 15:51:47 04/30/2023 04/30/2023 D/w pt about her findings, recent imagines and further plan of care. Pt is Ok to RTW without any restrictions from tomorrow. OTC meds as directed. RICE explained in detail. Educated pt about alarming symptoms to monitor at home and call us back or get checked in ED. F/u with PCP as directed. Not available 04/30/2023 16:46:33 08/14/2023 08/14/2023 D/w pt in detail about her findings and further plan of care. Explained about different options for this. Advised pt to f/u with her Psych and Counsellor soon. Meds as directed. Samples given to pt. Advised pt to talk with close friend/family member on a regular basis. Educated about alarming symptoms to monitor at home and call us back Or get checked in ED. Pt verbalized understanding it. F/u with PCP as directed. Not available 08/14/2023 14:53:00 Plan of Treatment Reminders Order Date Submit Date Provider Last Modified By Organization Details Last Modified Time Details Appointments None recorded. Lab lipid panel, serum 2022 023 [facility] (Lab), [address] [place], [address], 3 20:01:07 TSH, serum or plasma 2022 023 [facility] (Lab), [address] [place], [address], 3 20:39:25 CBC w/ auto diff 2022 023 [facility] (Lab), [address] [place], [address], 3 19:49:51 vitamin B12, serum 2022 023 [facility] (Lab), [address] [place], [address], 3 20:53:15 CMP, serum or plasma 2022 023 [facility] (Lab), [address] [place], [address], 3 20:01:05 glycohemogl obin, total, blood 2022 023 [facility] (Lab), [address] [place], [address], 3 21:02:09 rapid strep group A, throat 2022 023 [facility], [address] [place] [address], [address], 3 16:28:25 Referral neurologist referral 2022 023 [email or web address] [facility], [address], [place], [address], 4 08:55:37 otolaryngol ogist referral - right ear perforation 2022 023 [email or web address] 3 Rex Levine MD, [address], [place], [address], 3 07:57:51 gastroenter ologist referral - colonoscopy 2022 023 [email or web address] [facility], [address], [place], [address], 4 13:11:23 Procedures None recorded. Surgeries None recorded. Imaging MAMMO, screening, bilateral [email or web address] [place] [address] [facility], [address], [place], [address], 3 09:47:12 Medication Orders topiramate 50 mg tablet 2022 023 [place] [facility], [address], [place], [id number], 3 14:45:40 propranolol 40 mg tablet 2022 023 [place] [facility], [address], [place], [id number], 3 14:45:41 Nurtec ODT 75 mg disintegrat ing tablet 2022 023 [place] [facility]15[facility], [address], [place], [id number], 3 14:50:27 cefdinir 300 mg capsule 2022 023 [place] [facility], [address], [place], [id number], 3 14:45:04 Medrol (Derrick) 4 mg tablets in a dose pack 2022 023 [email or web address] [facility] #69941, [address] [facility], [place], [place], [id number], 3 14:42:19 scopolamine 1 mg over 3 days transdermal patch [address] [facility] #35973, [address] [facility], [place], [place], [id number], 3 10:26:39 topiramate 25 mg tablet [address] [facility] #06978, [address] [facility], [place], [place], [id number], 3 15:54:30 fluticasone propionate 50 mcg/actuati on nasal spray,suspe nsion [address] [facility] #05668, [address] [facility], [place], [place], [id number], 3 15:56:16 cetirizine 10 mg tablet 2022 023 [facility] #91610, [address] [facility], [place], [place], [id number], 3 10:00:44 Patient TargetsNo targets recorded. 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 Referral for Screening for malignant neoplasm of colon colonoscopy Referring Physician: Kayla Álvarez [facility], Encounter Date: 06/28/2023 Neurologist Referral for Chr onic headache disorder Referring Physician: Trell Flower [facility], Encounter Date: 08/14/2023 Results Created Date Observation Date Name Description Value Unit Range Abnormal Flag Note LastModifiedBy Organization Detail LastModifiedTime 03/26/2003/26/2023 CULTU RE URINE urc ===== ===== ===== ===== ===== ===== ===== ===== ===== ===== ===== ===== ===== ===== ===== ===== ===== ===== ===== ===== ===== ===== ===== ===== CULTU RE NO.: [id number] Exam Statu s: Final Exam Type: CULTU RE URINE ===== ===== ===== ===== ===== ===== ===== ===== ===== ===== ===== ===== ===== ===== ===== ===== ===== ===== ===== ===== ===== ===== ===== ===== Cultu re Repor t: Organ ism #01 Esche delfino a coli (escc ol) Antib iotic s escco l Achie vable Achie vable (01) Dosag e Serum Level Urine Level mcg/m l mcg/m l Sofie bethany <=2 S 021T Ampic illin 4 S 021T Ampic illin /Sulb actam <=2 S 021T Cefaz keshawn <=4 S 021T Cefep ricardo <=1 S 021T Cefox itin <=4 S 021T Ceftr iaxon e <=1 S 021T Cipro floxa bethany <=0.2 5 S 021T ESBL NEG - 021T Genta micin <=1 S 021T Levof loxac in <=0.1 2 S 021T Merop enem <=0.2 5 S 021T Piper acill in./T azaba <=4 S 021T Tobra mycin <=1 S 021T Trmet hopri m.Sul fa <=20 S 021T rt - Test Card Code AST-G N 021T o2 - Final Organ ism ESCHE R 021T af - Antib iotic Fami TRIME T 021T af - Antib iotic Famil y Na ap - Pheno type Name WILD 021T ap - Pheno type Name Nitro furan toin <=16 S 021T Not Available [facility] (Lab) [address] [place], [address], 03/28/2023 08:01:21 03/26/20 23 03/26/2023 urina lysis , dipst ick Leukocytes (reference range: negative shanon/ l) Modera te Not Available [address], [address], 03/26/2023 15:51:29 03/26/20 23 03/26/2023 urina lysis , dipst ick Nitrite (reference rage: negative mg/dl) positi ve Not Available [address], [address], 03/26/2023 15:51:29 03/26/20 23 03/26/2023 urina lysis , dipst ick Urobilinogen (reference range: 0.2-1 mg/dl) 0.2 Not Available [address], [address], 03/26/2023 15:51:29 03/26/20 23 03/26/2023 urina lysis , dipst ick Protein (reference range: negative mg/dl) Negati ve Not Available [address], [address], 03/26/2023 15:51:29 03/26/20 23 03/26/2023 urina lysis , dipst ick pH (reference range: 5-7) 5.0 Not Available [address], [address], 03/26/2023 15:51:29 03/26/20 23 03/26/2023 urina lysis , dipst ick Blood (reference range: negative Dawit/ l) Negati ve Not Available [address], [address], 03/26/2023 15:51:29 03/26/20 23 03/26/2023 urina lysis , dipst ick Specific [place] (reference range: 1.005-1.030) 1.020 Not Available [address], [address], 03/26/2023 15:51:29 03/26/20 23 03/26/2023 urina lysis , dipst ick Ketone (reference range: negative mg/dl) Trace Not Available [address], [address], 03/26/2023 15:51:29 03/26/20 23 03/26/2023 urina lysis , dipst ick Bilirubin (reference range: negative mg/dl) Negati ve Not Available [address], [address], 03/26/2023 15:51:29 03/26/20 23 03/26/2023 urina lysis , dipst ick Glucose (reference range: negative mg/dl) Negati ve Not Available [address], [address], 03/26/2023 15:51:29 03/26/20 23 03/26/2023 urina lysis , dipst ick Appearance Cloudy Not Available [address], [address], 03/26/2023 15:51:29 03/26/20 23 03/26/2023 urina lysis , dipst ick Color Yellow Not Available [address], [address], 03/26/2023 15:51:29 04/08/20 23 04/08/2023 rapid strep group A, throa t STREP A negati ve Not Available [address], [address], 04/08/2023 15:57:14 06/28/20 23 06/28/2023 CBC/C OMPLE TE BLD COUNT W/DIF F white blood cells 5.4 x10'3 /uL 4.2-10 .8 Not Available [facility] (Lab) [address] [place], [address], 06/28/2023 19:49:51 06/28/2006/28/2023 CBC/C OMPLE TE BLD COUNT W/DIF F red blood cells 4.47 x10'6 /uL 3.80-5 .20 Not Available [facility] (Lab) [address] [place], [address], 06/28/2023 19:49:51 06/28/2006/28/2023 CBC/C OMPLE TE BLD COUNT W/DIF F hemoglobin 13.8 g/dL 12.0-1 5.6 Not Available [facility] (Lab) [address] [place], [address], 06/28/2023 19:49:51 06/28/20 23 06/28/2023 CBC/C OMPLE TE BLD COUNT W/DIF F hematocrit 44.0 % 35.7-4 5.7 Not Available [facility] (Lab) [address] [place], [address], 06/28/2023 19:49:51 06/28/20 23 06/28/2023 CBC/C OMPLE TE BLD COUNT W/DIF F mean red cell volume 98.4 fL 82.0-9 9.0 Not Available [facility] (Lab) [address] [place], [address], 06/28/2023 19:49:51 06/28/2006/28/2023 CBC/C OMPLE TE BLD COUNT W/DIF F mean red cell hemoglobin 30.9 pg 27.0-3 3.0 Not Available [facility] (Lab) [address] [place], [address], 06/28/2023 19:49:51 06/28/2006/28/2023 CBC/C OMPLE TE BLD COUNT W/DIF F mean RBC HGB concentratio n 31.4 g/dL 31.0-3 6.0 Not Available [facility] (Lab) [address] [place], [address], 06/28/2023 19:49:51 06/28/2006/28/2023 CBC/C OMPLE TE BLD COUNT W/DIF F red cell distribution width 12.6 % 11.8-1 5.5 Not Available [facility] (Lab) [address] [place], [address], 06/28/2023 19:49:51 06/28/2006/28/2023 CBC/C OMPLE TE BLD COUNT W/DIF F platelets 290 x10'3 /uL 150-40 0 Not Available [facility] (Lab) [address] [place], [address], 06/28/2023 19:49:51 06/28/2006/28/2023 CBC/C OMPLE TE BLD COUNT W/DIF F mean platelet volume 10.5 fL 9.0-12 .4 Not Available [facility] (Lab) [address] [facility], [address], 06/28/2023 19:49:51 06/28/2006/28/2023 CBC/C OMPLE TE BLD COUNT W/DIF F neutrophils 60.5 % 39.0-7 2.0 Not Available [facility] (Lab) [address] [place], [address], 06/28/2023 19:49:51 06/28/2006/28/2023 CBC/C OMPLE TE BLD COUNT W/DIF F lymphocytes 30.1 % 16.0-4 7.0 Not Available [facility] (Lab) [address] [place], [address], 06/28/2023 19:49:51 06/28/2006/28/2023 CBC/C OMPLE TE BLD COUNT W/DIF F monocytes 5.8 % 5.0-12 .0 Not Available [facility] (Lab) [address] [place], [address], 06/28/2023 19:49:51 06/28/2006/28/2023 CBC/C OMPLE TE BLD COUNT W/DIF F eosinophils 2.8 % 1.0-7. 0 Not Available [facility] (Lab) [address] [place], [address], 06/28/2023 19:49:51 06/28/2006/28/2023 CBC/C OMPLE TE BLD COUNT W/DIF F basophils 0.4 % 0.0-2. 0 Not Available [facility] (Lab) [address] [place], [address], 06/28/2023 19:49:51 06/28/2006/28/2023 CBC/C OMPLE TE BLD COUNT W/DIF F immature granulocytes 0.4 % 0.00-0 .50 Not Available [facility] (Lab) [address] [place], [address], 06/28/2023 19:49:51 06/28/2006/28/2023 CBC/C OMPLE TE BLD COUNT W/DIF F neutrophils, absolute count 3.24 x10'3 /uL 1.5-8. 0 Not Available [facility] (Lab) [address] [place], [address], 06/28/2023 19:49:51 06/28/2006/28/2023 CBC/C OMPLE TE BLD COUNT W/DIF F lymphocytes, absolute count 1.61 x10'3 /uL 1.07-3 .43 Not Available [facility] (Lab) [address] [place], [address], 06/28/2023 19:49:51 06/28/2006/28/2023 CBC/C OMPLE TE BLD COUNT W/DIF F monocytes, absolute count 0.31 x10'3 /uL 0.29-0 .99 Not Available [facility] (Lab) [address] [place], [address], 06/28/2023 19:49:51 06/28/20 23 06/28/2023 CBC/C OMPLE TE BLD COUNT W/DIF F eosinophils, absolute count 0.15 x10'3 /uL 0.02-0 .53 Not Available [facility] (Lab) [address] [place], [address], 06/28/2023 19:49:51 06/28/20 23 06/28/2023 CBC/C OMPLE TE BLD COUNT W/DIF F basophils, absolute count 0.02 x10'3 /uL 0.01-0 .08 Not Available [facility] (Lab) [address] [place], [address], 06/28/2023 19:49:51 06/28/20 23 06/28/2023 CBC/C OMPLE TE BLD COUNT W/DIF F immature granulocytes ,absolute 0.02 x10'3 /uL 0.00-0 .05 Not Available [facility] (Lab) [address] [place], [address], 06/28/2023 19:49:51 06/28/20 23 06/28/2023 CBC/C OMPLE TE BLD COUNT W/DIF F nucleated red blood cells 0.0 % -0 Not Available [facility] (Lab) [address] [place], [address], 06/28/2023 19:49:51 06/28/20 23 06/28/2023 CBC/C OMPLE TE BLD COUNT W/DIF F NRBC# 0.00 x10'3 /uL Not Available [facility] (Lab) [address] [place], [address], 06/28/2023 19:49:51 06/28/20 23 06/28/2023 COMPR EHENS KAY METAB OLIC PANEL sodium 137 mmol/ L 137-14 5 Not Available [facility] (Lab) [address] [place], [address], 06/28/2023 20:01:05 06/28/20 23 06/28/2023 COMPR EHENS KAY METAB OLIC PANEL potassium 4.6 mmol/ L 3.5-5. 1 Not Available [facility] (Lab) [address] [place], [address], 06/28/2023 20:01:05 06/28/20 23 06/28/2023 COMPR EHENS KAY METAB OLIC PANEL chloride 101 mmol/ L 98-107 Not Available [facility] (Lab) [address] [place], [address], 06/28/2023 20:01:05 06/28/20 23 06/28/2023 COMPR EHENS KAY METAB OLIC PANEL carbon dioxide 31 mmol/ L 22-30 high Not Available [facility] (Lab) [address] [place], [address], 06/28/2023 20:01:05 06/28/20 23 06/28/2023 COMPR EHENS KAY METAB OLIC PANEL anion gap 9.6 mmol/ L 14-22 low Not Available [facility] (Lab) [address] [place], [address], 06/28/2023 20:01:05 06/28/20 23 06/28/2023 COMPR EHENS KAY METAB OLIC PANEL glucose 84 mg/dL 70-99 Not Available [facility] (Lab) [address] [place], [address], 06/28/2023 20:01:05 06/28/20 23 06/28/2023 COMPR EHENS KAY METAB OLIC PANEL BUN 11 mg/dL 8-19 Not Available [facility] (Lab) [address] [place], [address], 06/28/2023 20:01:05 06/28/20 23 06/28/2023 COMPR EHENS KAY METAB OLIC PANEL creatinine 0.66 mg/dL 0.66-1 .25 Not Available [facility] (Lab) [address] [place], [address], 06/28/2023 20:01:05 06/28/20 23 06/28/2023 COMPR EHENS KAY METAB OLIC PANEL GFR >60 Refer ence Range : [place] ge GFR Healt hy Adult : >60 mL/mi n/1.7 3 m2 Chron ic Kidne y Disea se: 15-60 mL/mi n/1.7 3 m2 Kidne y Failu re: <15/m L/min /1.73 m2 www.n iddk. nih.g ov The MDRD study equat ion has not been valid ated in child charles <18 years of age; pregn ant women ; the elder ly >85 years of age; or in some racia l or ethni c subgr oups, such as Hispa nics. Outsi de the valid ated manas eters , estim ated GFR is less accur ate, requi ring clini henok judgm ent on a case- by-ca se basis . Clini henok inter preta tion for other races and ages must be made by the clini ashleigh. The MDRD study equat ion has not been valid ated for the evalu ation of serum creat inine relat ed to nutri brayden l statu s or medic ation usage . For perso ns <18 years of age, a pedia tric GFR calcu lator is avail able on the [facility] websi te: https ://jos morales.mitesh boyle.o rg/pr ofess ional s/kdo qi/gf r_cal culat or Not Available [facility] (Lab) [address] [place], [address], 06/28/2023 20:01:05 06/28/20 23 06/28/2023 COMPR EHENS KAY METAB OLIC PANEL alkaline phosphatase 92 U/L 38-126 Not Available [facility] (Lab) [address] [place], [address], 06/28/2023 20:01:05 06/28/20 23 06/28/2023 COMPR EHENS KAY METAB OLIC PANEL alanine aminotransfe rase 26 U/L 0-35 Not Available [facility] (Lab) [address] [place], [address], 06/28/2023 20:01:05 06/28/20 23 06/28/2023 COMPR EHENS KAY METAB OLIC PANEL aspartate aminotransfe rase 24 U/L 15-37 Not Available [facility] (Lab) [address] [place], [address], 06/28/2023 20:01:05 06/28/20 23 06/28/2023 COMPR EHENS KAY METAB OLIC PANEL bilirubin, total 0.20 mg/dL 0.20-1 .30 Not Available [facility] (Lab) [address] [place], [address], 06/28/2023 20:01:05 06/28/20 23 06/28/2023 COMPR EHENS KAY METAB OLIC PANEL calcium 10.6 mg/dL 8.4-10 .2 high Not Available [facility] (Lab) [address] [place], [address], 06/28/2023 20:01:05 06/28/20 23 06/28/2023 COMPR EHENS KAY METAB OLIC PANEL total protein 7.1 g/dL 6.3-8. 2 Not Available [facility] (Lab) [address] [place], [address], 06/28/2023 20:01:05 06/28/20 23 06/28/2023 COMPR EHENS KAY METAB OLIC PANEL albumin 4.2 g/dL 3.4-5. 0 Not Available [facility] (Lab) [address] [place], [address], 06/28/2023 20:01:05 06/28/20 23 06/28/2023 COMPR EHENS KAY METAB OLIC PANEL globulin 2.9 g/dL 2.6-4. 2 Not Available [facility] (Lab) [address] [place], [address], 06/28/2023 20:01:05 06/28/20 23 06/28/2023 COMPR EHENS KAY METAB OLIC PANEL A/G ratio 1.4 ratio 1.0-2. 0 Not Available [facility] (Lab) [address] [place], [address], 06/28/2023 20:01:05 06/28/20 23 06/28/2023 LIPID PANEL cholesterol 183 mg/dL 140-19 9 NIH DIPAK NSUS RECOM MENDA TION FOR RADHA STERO L: ADULT CHILD LOW RISK: <200 <170 BORDE RLINE : <200- 239 ----- HIGH RISK: >240 >200 Not Available [facility] (Lab) [address] [place], [address], 06/28/2023 20:01:07 06/28/20 23 06/28/2023 LIPID PANEL triglyceride s 99 mg/dL 0-150 NIH DIPAK NSUS REPOR T RECOM MENDA TION FOR TRIGL YCERI BREN: ADULT CHILD LOW RISK: <150 ----- BODER LINE: 150-1 99 ----- HIGH RISK: >200 ----- Not Available [facility] (Lab) [address] [place], [address], 06/28/2023 20:01:07 06/28/20 23 06/28/2023 LIPID PANEL HDL cholesterol 48 mg/dL 40- Not Available [facility] (Lab) [address] [place], [address], 06/28/2023 20:01:07 06/28/20 23 06/28/2023 LIPID PANEL LDL cholesterol, calculated 115 mg/dL 0-130 NIH DIPAK NSUS REPOR T RECOM MENDA TIONS FOR LDL: ADULT CHILD LOW RISK <130 <110 (OPTI MAL LDL) <100 ----- BORDE RLINE : 130-1 59 ----- HIGH RISK: >160 >130 A TRIGL YCERI DE RESUL T >400 INVAL IDATE S THE CALCU LATIO N FOR LDL FRACT IONAT ION - THE LDL RESUL T WILL NOT BE REPOR NIEVES. Not Available [facility] (Lab) [address] [place], [address], 06/28/2023 20:01:07 09/06/28/2023 TSH W/REF RANDALL FT4 TSH with reflex free T4 1.880 uIU/m L 0.465- 4.680 Not Available [facility] (Lab) [address] [place], [address], 06/28/2023 20:39:25 06/28/20 23 06/28/2023 VITAM IN B12 (FADY STEVE ) vb12 917 pg/mL 239-93 1 Not Available [facility] (Lab) [address] [place], [address], 06/28/2023 20:53:15 06/28/20 23 06/28/2023 HEMOG LOBIN A1C HA1C 5.2 % 4.0-6. 0 Diabe kathryn Scree ajay Crite lola: <5.7% Consi stent with absen ce of diabe kathryn 5.7-6 .4% Consi stent with incre ased risk for diabe kathryn (pred iabet es) >OR=6 .5% Consi stent with diabe kathryn REFER ENCE: Diabe kathryn Care 2016, 39(Noriega ppl.1 ):s13 -s22 Not Available [facility] (Lab) [address] [place], [address], 06/28/2023 21:02:08 04/30/20 23 tibia /fibu la 2 vws, right [facility] [address] [place] [address] Patien t Name: MASON BUCIO Access ion #: [id number] Sex: F : 1974 1 Dictat ed By: Homero Caal Attend ing Physic scotty: KWAKU FLOWER Orderi Physic scotty: KWAKU FLOWER Exam Date: 2022 11:45 AM Exam Name: XR TIBIA/ FIBULA RT 2V Admitt ing Diagno sis(es ): Right Tibia/ Fibula Clinic al Indica tion: Recent fall Compar lan: None FINDIN GS: AP and latera l views of the tibia and fibula demons trate no fractu re. There are no osseou s lesion s. The visual ized knee and ankle are unrema rkable . The soft tissue s are normal . There are no radiop aque foreig n bodies . If there is furthe r concer n, recomm end follow -up radiog raphs or bone scan for comple te assess ment. IMPRES GIOVANNA: Negati ve radiog raphs of the right tibia and fibula . Electr onical ly Signed by: Homero Caal at 2022 13:55: 00 PM Page [email or web address] [place] [address] (Imaging) [address] [place], [address], 04/30/2023 16:37:26 07/30/20 audio gram + tympa nogra m No observ ation record ed. [email or web address] [facility] [address] [place], [address], 08/14/2023 14:50:34 08/07/20 23 07/30/2023 audio gram + tympa nogra m No observ ation record ed. [email or web address] [place] [address] Aud[address], [place], [address], 08/14/2023 14:50:34 08/16/20 23 08/16/2023 MAMMO , scree ajay, bilat eral No observ ation record ed. [email or web address] [facility] [address], [place], [address], 08/21/2023 11:31:45 Result Notes None recorded. Problems Name Problem SNOMED Code Status Onset Date Resolution Date Notes Provider Name and Address Organization Details Recorded Time Chronic neck pain 9611908257801 Active 2021 Not Available [facility] 4 15:38:26 Plantar fascial fibromatos is 06483563 Active 2017 Not Available [facility] 4 15:38:26 Bipolar disorder 93532011 Active 2017 Not Available [facility] 4 15:38:26 Pain of left shoulder joint 2823514291523 9109 Active 2019 Not Available [facility] 4 15:38:26 Bilateral earache 240997059 Active 2021 Not Available [facility] 4 15:38:26 Insomnia 422638513 Active 2017 Not Available [facility] 4 15:38:26 Hot sweats 698453917 Active 2017 Not Available [facility] 4 15:38:26 Overweight 742766717 Active 2021 Not Available [facility] 4 15:38:26 Headache 03890734 Active 2019 Not Available [facility] 4 15:38:26 Thumb injury 178319004 Active Not Available [facility] 4 15:38:26 Degenerati on of lumbar interverte bral disc 88225931 Active 2019 Not Available [facility] 4 15:38:26 Sore throat 654467570 Active 2021 Not Available [facility] 4 15:38:27 Chronic low back pain 531847406 Active 2019 Not Available [facility] 4 15:38:27 Ureteric stone 18551504 Active 2021 Not Available [facility] 4 15:38:27 Pain in right hip joint 1599581063454 02 Active 2019 Not Available [facility] 4 15:38:27 Restless legs 42152963 Active 2018 Not Available [facility] 4 15:38:27 Vitamin D deficiency 40616989 Active 2017 Not Available [facility] 4 15:38:27 Migraine 01953374 Active 2021 Not Available [facility] 4 15:38:27 Hypothyroi dism 99675278 Active 2017 Not Available [facility] 4 15:38:27 Obese 420741649 Active 2017 Not Available [facility] 4 15:38:27 Shoulder pain 36988187 Active 2017 Not Available [facility] 4 15:38:27 Anxiety 66315836 Active 2017 Not Available [facility] 4 15:38:27 Upper respirator y infection 34692928 Active 2021 Not Available [facility] 4 15:38:27 Hyperlipid emia 20842143 Active 2017 Not Available [facility] 4 15:38:27 Urinary tract infectious disease 90598554 Active 2021 Not Available [facility] 4 15:38:27 Degenerati on of cervical interverte bral disc 13797210 Active 2021 Not Available [facility] 4 15:38:27 History of bypass of stomach 317676464 Active 2019 Not Available [facility] 4 15:38:27 Sleep apnea 75652428 Active 2019 Not Available [facility] 4 15:38:27 Obstructiv e sleep apnea syndrome 06881162 Active 2018 Not Available [facility] 4 15:38:27 Neck pain 53378718 Active 2017 Not Available [facility] 4 15:38:27 Kidney stone 37473420 Active 2021 Not Available [facility] 4 15:38:27 Pain in finger 87376903 Active 2022 Not Available [facility] 4 15:38:26 Dysuria 64269308 Active 2022 Not Available [facility] 4 15:38:27 Closed fracture of multiple right ribs [id number] 9102 Active 2022 Not Available [facility] 4 15:38:26 Contusion of lower limb 62043912 Active 2022 Not Available [facility] 4 15:38:27 Seasonal allergic rhinitis 343748229 Active 2022 Not Available [facility] 4 15:38:27 Nasal congestion 92074126 Active 2022 Not Available [facility] 4 15:38:27 Perforatio n of left tympanic membrane 2129094124233 103 Active 2022 Not Available [facility] 4 15:38:26 Motion sickness 83130519 Active 2022 Not Available [facility] 4 15:38:27 Sensorineu ral hearing loss 35769383 Active 2022 Not Available [facility] 4 15:38:27 Depressive disorder 11262894 Active 2022 Not Available [facility] 4 15:38:27 Anxiety disorder 818571642 Active 2022 Not Available [facility] 4 15:38:26 Panic disorder 608698891 Active 2022 Not Available [facility] 4 15:38:27 Attention deficit hyperactiv ity disorder, predominan tly inattentiv e type 43263243 Active 2022 Not Available [facility] 4 15:38:27 Chronic headache disorder 627844776 Active 2022 Not Available [facility] 4 15:38:27 Migraine with aura 1532404 Active 2022 Not Available [facility] 4 15:38:27 Notes:thyroid, weight, depre ssion Problem Notes None recorded. Procedures Surgical History Date Name Laterality Status Provider Name and Address Organization Details Recorded Time 03/26/20 23 Transitional_Care_ Management completed Nahomi Torrez RN [place] - [place] [facility] 03/26/2023 15:20:55 06/20/20 20 laparoscopic sleeve gastrectomy completed Not Available [facility] 11/28/2022 13:52:26 04/30/20 06 Total hysterectomy completed Not Available [facility] 11/28/2022 13:52:26 Cholecystectomy completed Not Available [facility] 11/28/2022 13:52:26 Dilation and curettage completed Not Available [facility] 11/28/2022 13:52:26 Imaging Results Imaging Date Name Status LastModified by Organiz ation Details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 12:14:18 12/18/2022 13:02:01 Pain in finger 28151463 M79.644 pain in right hand pinky finger. Continue splint. Will get another xray right hand pinky finger closer to 2 week tiffanie. Migraine 04409630 G43.90 9 getting 2 migraines weekly. Using sumatripta n 100 mg. Add on topiramate 25 mg po bid. Notify psych regarding vyvanse. [id number] Trell Flower MD [address] [address] 03/26/2023 15:15:58 03/26/2023 16:23:58 Transition of care 3045312766 105 Z75.8 History of fall 68350599 9 Z91.81 [facility]en in [facility] 899406342 Z76.89 Dysuria 62453325 R30.0 Closed fra cture of multiple right ribs 9416368661 6680497 S22.41XD Urinary tr act infectious disease 10346763 N39.0 Contusion of lower limb 02014625 S80.11XD [id number] Trell Flower MD [address] [address] 04/08/2023 15:34:58 04/08/2023 16:12:35 Sore throat 607942078 J02.9 Migraine 04778495 G43.90 9 Seasonal a llergic rhinitis 431264062 J30.2 Nasal congestion 0567042 0 R09.81 [id number] Trell Flower MD [address] [address] 04/30/2023 16:29:36 04/30/2023 16:55:43 Migraine 62413560 G43.909 stable History of fall 30898927 9 Z91.81 Contusion of lower limb 34656409 S80.11XD resolved Closed fra cture of multiple right ribs 4211142623 0748418 S22.41XD improved [id number] Kayla Álvarez NP [address] [address] 06/28/2023 09:54:54 06/28/2023 10:51:47 Adult health examination 240625678 Z00.00 Encouraged well balanced meals, active lifestyle, and routine vision and dental appts. Screening mammography 24 273463 Z12.31 Screening mammogram. Perforatio n of left tympanic membrane 2463151086 395513 H72.92 ENT referral. Motion sickness 13584108 T75.3XXA Scopolamin e 1 mg q 72 hours. Administra tion of influenza vaccine 65584825 Z23 Anemia screening 2622754 07 Z13.0 Diabetes m ellitus screening 105451701 Z13.1 Thyroid di sorder screening 458774688 Z13.29 Hyperlipid emia screening 161465742 Z13.220 Screening for malignant neoplasm of colon 915821775 Z12.11 [id number] Juanita Dao [facility] E[facility] [place] [address] [place] [address] 07/25/2023 14:22:09 07/25/2023 14:39:18 Chronic serous otitis media of left ear 048826634 H65.22 [id number] Trell Flower MD [facility] [address] [address] 08/14/2023 14:26:59 08/14/2023 14:53:53 Depressive disorder 13106035 F32.A Anxiety disorder 4205093 06 F41.9 Panic disorder 287004149 F41.0 Attention deficit hyperactivity disorder, 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 Chronic he adache disorder 284616999 G44.89 Migraine with aura 38605 06 G43.109 Health Concerns Section Related Observation LastModified by Organization Detai ls LastModified Time None Recorded Concern Status LastModified by Organization Details LastModified Time None Recorded Advance Directives Directive N: Payers Encounter Date Sequence Insurance Name Policy Number Policy Murray Covered Member ID Murray Member ID Guarantor Name 04/08/2023 1 [facility] ON OR AFTER 03/30/21 (MEDICAID REPLACEMENT - HMO) Mason Bucio [id number] Mason Bucio 04/30/2023 1 [facility] ON OR AFTER 03/30/21 (MEDICAID REPLACEMENT - HMO) Mason Bucio [id number] Mason Bucio 06/28/2023 1 [facility] ON OR AFTER 03/30/21 (MEDICAID REPLACEMENT - HMO) Mason Bucio [id number] Masno Bucio 07/25/2023 1 [facility] ON OR AFTER 03/30/21 (MEDICAID REPLACEMENT - HMO) Mason Bucio [id number] Mason Bucio 08/14/2023 1 [facility] ON OR AFTER 03/30/21 (MEDICAID REPLACEMENT - HMO) Mason Bucio [id number] Mason Bucio Notes Date Note Type Note Provider Name and Address Organization Details Recorded Time 04/08/2023 text/html ACV: C/o sore throat, nasal congestion, drainage for last 2 days. No fever/chills/n/v/d . Denies any known sick contact. Pt is working double hrs shifts too. Trell Flower MD [address], [facility] [address], [place], [address], [facility] [employer] [facility] 04/08/2023 16:11:46 04/30/2023 text/html Pt is here for f /u on her x-ray and pain. Doing overall much better now. Pt is not taking any pain meds for last few days and is doing well. Pt needs RTW note without any restrictions. Denies any other concern. S/p fall at home while cleaning shower about 3 weeks ago and hurt her Rt side of ribs. Pt was seen at in [place] and got x-ray done and she was found to have 3 broken ribs and was given 2 meds and d/c to home. C/o Rt leg area pain after few days and she went to ED and she was told to hematoma and was send home without any new med. Trell Flower MD [address], [facility] [address], [place], [address], [facility] [employer] [facility] 04/30/2023 16:47:10 06/28/2023 text/html Here for wellnes s visit. ADHD- seeing Tamar Tian, PMHNP [place]. Vyvanse and lamotrigine 150. [place].Migraine- Topiramate 25 mg po bid, sumatriptan not needed.Asthma/keiko rgies- stable. using zyrtec and flonase. Flared due to rain and farmers. Kayla Álvarez NP [address], [facility] [address], [place], [address], [facility] [employer] [facility] 06/28/2023 10:35:24 07/25/2023 text/html this patient reports left ear pain and ear drops did not help. This has been going on for a few months and did not follow an upper respiratory infection. She does believe that she has hearing loss. She also believes that she has a tympanic membrane perforation Juanita sarabia, [place] [employer] [facility] 08/08/2023 12:38:38 08/14/2023 text/html ACV: C/o her anxiety, palpitations and migraine is not controlled for last few weeks. Pt says she has lot of stress happening in her life. Denies any SI/HI. Pt is f/u with Psych and counsellor at [facility]; but they are on vacation this week, so she can not see them sooner. Pt is requesting couple days work off note due to this. Trell Flower MD [address] [facility], [facility] [address], [place], [address], [facility] 08/14/2023 14:53:12 OBGyn Episode No OBEpisode recorded.
--- OUTSIDE RECORDS SUMMARY | 2025-01-18 11:12 | XMS_ITS ---
Author Organization [facility] Address [address] [place] [address] Care Team Providers Care Telephone Lineman Name Role Phone Jannette Currie Primary Care Provider Farhana Sheehan Unavailable [phone] REASON FOR VISIT FYI - Jannette patient, Severe panic attacks, anxiety Social History Sex Assigned At : Social History Observation Description Sex Assigned At Female Encounters Encounter Location Date Provider Diagnosis [address] [place] [address] 05/13/2024 Farhana Sheehan Plan Of Treatment No Information Progress Notes * Yazmin BUCIODOB:1975 (49 yo F)Acc No.[id number]:05/13/2024 Patient: Mahogany BLEVINScy :1975 A ge:49 Y S ex:Female Address:[address] [place], [address] * true * Date: Generated for Printi ng/Faxing/eTransmitting on: 0 01/18/2025 11:11 AM CDT
--- OUTSIDE RECORDS SUMMARY | 2025-01-18 11:12 | XMS_ITS | CONTINUITY OF CARE DOCUMENT ---
Author Name jairo, jairo Address Unknown Organization [facility] Address [address] [place] [address] Phone [phone] Care Team Providers Care Pelt Dropper Name Role Phone Brown Farley MD Unavailable DAYLIN VAUGHAN MD Unavailable ADE ROSARIO Unavailable PROBLEMS Condition Status Date Provider Notes OBESITY active Brown Farley MD SHORTNESS OF BREATH-01/09 CT CHEST NEG active ? John Garay RN DEPRESSION active ? Brown Farley MD ENCOUNTERS Date Type Provider Location Encounter Diag nosis - In-person encounter Office Visit Brown Farley MD [place] [facility] - In-person encounter Office Visit Brown Farley MD [place] [facility] DEPRESSIONSHORTNESS OF BREATH-01/09 CT CHEST NEGOBESITY VITAL SIGNS Date Observation Value Provider blood pressure, diastolic, left arm 78 mm [Hg] Tien Salazar blood pressure, systolic, left arm 106 mm [Hg] Tien Salazar blood pressure, diastolic, right arm 82 m m[Hg] Tien Salazar blood pressure, systolic, right arm 108 m m[Hg] Tien Salazar blood pressure, diastolic 82 mm[Hg] Mcnulty blood pressure, systolic 108 mm[Hg] Brian Salazar pulse rate 92 /min Tien Salazar oxygen saturation, oximetry 99 % Tien Salazar respiratory rate E&M 16 /min Tien Salazar weight E&M 176 [lb_av] Tien Salazar blood pressure, diastolic 87 mm[Hg] Radha seph [place] blood pressure, systolic 115 mm[Hg] Lazaro eph [place] pulse rate 81 /min Mandeep [place] oxygen saturation, oximetry 97 % Mandeep [place] respiratory rate E&M 14 /min Mandeep [place] weight E&M 176 [lb_av] [facility] ALL[facility] No Known Drug Allergies RESULTS Date Observation Value Provider Reference Range Interpretation Location platelet count 341 10[facility] hematocrit, blood 44.3 % [facility] international normalized ratio (INR) 1.0 [facility] thyroid stimulating hormone, serum 3.18 u[IU]/mL [facility] D-dimer quantitative mcg/mL 269 ug/mL [facility] alanine aminotransferase (SGPT), serum 46 1/L [facility] aspartate aminotransferase (SGOT), serum 30 1/L [facility] creatinine, serum 1.16 mg/dL [facility] potassium, serum 4.8 mmol/L [facility] sodium, serum 133 mmol/L [facility] HISTORY OF MEDICATION USE Medication Status Instructions Dates Provider Indications Com ments PRILOSEC OTC 20 MG ORAL TABLET DELAYED RELEASE active 1 tab once a day [facility] AD[facility] ASPIRIN LOW STRENGTH 81 MG ORAL TABLET DISINTEGRATING active once a day [facility] TRAMADOL HCL 50 MG ORAL TABLET active every 4hrs as needed [facility] CIPRO 500 MG ORAL TABLET active 1 tab twice a day [facility] SOCIAL HISTORY Date Observation Value Provider social history reviewed E&M reviewed John Garay RN social history E&M Marital Statu s: Single C meryen: 1 child Aria medina with family/friends Brown Farley MD number of children 1 child Brown mejia MD drug use none Brown Farley MD caffeine use, averag e drinks per day yes John Garay RN alcohol use, average drinks per day social John Garay RN smoking status Non-Smoker John Garay RN social history reviewed E&M reviewed John Garay RN physical exercise, f requency, days per week yes [employer] caffeine use, averag e drinks per day yes [employer] alcohol use, average drinks per day social basis only [employer] smoking status Non-smoker [employer] MENTAL STATUS Date Observation Value Provider assessment of judgme nt and insight E&M Alert and oriented to time, place and person. Mood and affect are normal. John Garay RN assessment of judgme nt and insight E&M Alert and oriented to time, place and person. Mood and affect are normal. John Garay RN INSURANCE PROVIDERS Payer name Policy type / Coverage type [place] [facility] Medicaid 1 [id number] TREATMENT PLAN Date Name Performer FOLLOW UP Brown Farley MD FOLLOW UP Brown Farley MD FOLLOW UP:still sob. still needs an echo H er updated medication list for this problem includes: Adult Aspirin Low Strength 81 Mg Tbdp (Aspirin) ..... Once a day Orders: E KG (CPT-93299) BP today: 108/82 Prior BP: 115/87 (01/03/2012) N uclear Stress Findings: 1. Normal Gregory protocol exercise tolerance test. 2 . Normal left ventricular size and function with a calculated ejection fraction of 51%. 3 . Myocardial scintigraphy is normal without evidence for previous myocardial infarction or reversible ischemia. - GC (01/01/2012) Brown Farley MD hosp f/u-test result s : H er updated medication list for this problem includes: Adult Aspirin Low Strength 81 Mg Tbdp (Aspirin) ..... Once a day e tiology is not clear. I will rx a ct angio r/o pe a nd if this comes back neg maybe due to stress. Brown Farley MD hosp f/u-test results :rx weight loss Brown Farley MD hosp f/u-test result s : H er updated medication list for this problem includes: Adult Aspirin Low Strength 81 Mg Tbdp (Aspirin) ..... Once a day BP today: 115/87 Prior BP: / () N uclear Stress Findings: 1. Normal Gregory protocol exercise tolerance test. 2 . Normal left ventricular size and function with a calculated ejection fraction of 51%. 3 . Myocardial scintigraphy is normal without evidence for previous myocardial infarction or reversible ischemia. - GC (01/01/2012) Brown Farley MD hosp f/u-test results Brown appiah MD Date Name Other Test Complete Echo HISTORY OF PROCEDURES Procedure Date Procedure Name Provider Procedure Notes S tatus EKG Brown Farley MD completed
--- OUTSIDE RECORDS SUMMARY | 2025-01-18 11:12 | XMS_ITS | Patient Health Record ---
Author Organization [facility] Address [address] [place] [address] Care Team Providers Care Ip Architect Name Role Phone Jannette Currie Primary Care Provider Sissy Farhana Unavailable [phone] Allergies No Known Allergies Reason For Referral Reason Start individual the [facility] if possible Diagnosis 1 Bipolar 1 disorder ( F31.9) Referral Organization [facility] Referring Provider First Name Clare Referring Provider Last Name Luci Referring Provider Speciality Behavioral Health Referred Provider Specialty Behavioral H [facility] Clinical Notes Tona Weinberg 05/13 01:45:42 PM >HN reached out to client and client requested an email be sent to her with the information on starting therapy through [facility]. HN verified client's email and sent email with information. Client verbalized understanding and was told to contact HN again if she had any questions. Referral Priority Routine Medications Medication SIG (Take, Route, Frequency, Duration) Notes Start Date End Date Status Vyvanse 30 MG 1 capsule in the morning Orally Once a day for 30 days 10/01/2023 Not-Taking lamoTRIgine 25 MG 1 tablet x 14 days, then 2 tablets (for 50 mg) x 14 days Orally daily for 28 days Active Topamax 50 MG 1 tablet Orally Twic e a day Not-Taking Vyvanse 30 MG 1 capsule in the morning Orally Once a day for 30 days 06/10/2024 Active lamoTRIgine 100 MG After completing 25 mg script- take 1 tablet once a day for 14 days, then 1.5 tablets once a day for 16 days Orally Once a day for 30 days Active Vyvanse 30 MG 1 capsule in the morning Orally Once a day for 30 days 05/13/2024 Active hydrOXYzine Pamoate 50 MG 1 capsule as n eeded Orally Three times daily for 30 days Active Social History Sex Assigned At : Social History Observation Description Sex Assigned At Female Problems Problem Type SNOMED Code ICD Code Onset Dates Problem Status W/U Status Risk Notes Problem Generalized anxiety disorder (75220050) Generalized anxiety disorder (F41.1) Active confirmed Problem Depression (157568048) Depression (F32.9) 07/02/20 Active confirmed Problem Anxiety (03529464) Anxiety (F41.9) 07/02/20 Active confirmed Problem Bipolar 1 disorder (675326338) Bipolar 1 disorder (F31.9) 07/02/20 Active confirmed Problem Attention deficit hyperactivity disorder, predominantly inattentive type (48829502) Adult ADHD (F90.0) Active confirmed Problem Learning disability (5140541) Learning disability (F81.9) Active confirmed Problem History of psychiatric disorder (741991923) History of posttraumatic stress disorder (PTSD) (Z86.59) Active confirmed Problem Adult health examination (191271158) Routine adult health maintenance (Z00.00) Active confirmed Encounters Encounter Location Date Provider Diagnosis [address] [address] 05/13/2024 Farhana Sheehan Generalized anxiety disorder F41.1 ; Bipolar 1 disorder F31.9 and Adult ADHD F90.[address] [place] [address] 02/12/2024 Jannette Currie Adult ADHD F90.[address] [address] 05/13/2024 Farhana Sheehan Assessments Encounter Date Diagnosis (ICD Code) Assessment Notes Treatment Notes Treatment Clinical Notes Section Notes 02/12/2024 Adult ADHD (ICD-10 - F90.0) 05/13/2024 Generalized anxiety disorder (ICD-10 - F41.1) [...] Topamax refill which she will do today. [place] [facility] receptionist contacted to complete a work excuse note for today (she is outside [facility]). No acute safety concerns the time of this appt, he is agreeable to treatment plan and was provided an opportunity to ask questions. May self-administer medications or be administered own oral medications per [facility] protocols. Provided informed consent with understanding of side effects, adverse effects, risks and benefits as well as alternative treatments as previously discussed and with the above recommended medications & other aspects of the treatment program. Agrees to return sooner if symptoms worsen or suicidal or homicidal ideations occur. Plan Of Treatment No Information Insurance Providers Payer Name Payer Address Payer Phone Subscriber Number Group Number Insured Name Patient Relationship to Insured Coverage Start Date Coverage End Date [facility] Clinical[facility] Attn Claims Department [address] [place] [address] [phone] [id number] Yazmin Nova Self - patient is the insured 2 [employer] Attn Claims Department [address] [place] [address] [phone] [id number] Yazmin Nova Self - patient is the insured 2 Medical (General) History Medical History History ICD Code Depression ADHD Anxiety Learning Disability Surgical History Surgery Date(Month/Year) Gastic sleeve 2020 Cholecysectomy Tubal Ligation Hernia Total Hysterectomy Hospitalization History Reason Date(Month/Year) Childbirth with eclampsia 2000
--- OUTSIDE RECORDS SUMMARY | 2025-01-18 11:53 | XMS_ITS | Clinical Summary ---
Author Organization [facility] Address [address] [place] [address] Care Team Providers Care Terrazzo Roller Name Role Phone Kayla Berumen APRN-BOARD DESIGN ENGINEER Primary Care Provider Source Comments [facility],non-owned Affiliates and Associated Physician Practices is amultiple site organization consisting of ambulatory clinics and hospital sitesin [place], [place], [place] and [place]. This disclosure is being madepursuant to the Care Everywhere program and may not contain all information available regarding this patient. Last updated 18.[facility] Allergies No known active allergies Medications * [...] 0 07/07/2018 Active vitamin D, ergocalciferol, (DRISDOL) 43613 UNITS capsule TK 1 C PO Q [...] on file Legal Sex Female 7:41 AM HOSPICE AIDE Gender Identity Not on file Sexual Orientation Not on file Last Filed Vital Signs Vital Sign Reading Time Taken Comments Blood Pressure 114/76 09/17/2018 2:01 PM HOSPICE AIDE Pulse 84 09/17/2018 2:01 PM HOSPICE AIDE Temperature 36.7 C (98 F) 09/17/2018 2:01 PM HOSPICE AIDE Respiratory Rate - - Oxygen Saturation - - Inhaled Oxygen Concentration - - Weight 86.2 kg (190 lb) 09/17/2018 2:01 PM HOSPICE AIDE Height 149.9 cm (4' 11) 09/17/2018 2:01 PM HOSPICE AIDE Body Mass Index 38.38 09/17/2018 2:01 PM HOSPICE AIDE Plan of Treatment Health Maintenance Due Date [...] patient's age to complete this topic Insurance [facility] Care Teams Terrazzo Roller Relationship Specialty Start Date End Date Kayla Berumen APRN-BOARD DESIGN ENGINEER [address] [place] [phone] PCP - General 09/08/18
--- OUTSIDE RECORDS SUMMARY | 2025-01-18 11:53 | XMS_ITS | CONTINUITY OF CARE DOCUMENT ---
Author Name jairo, jairo Address Unknown Organization [facility] Address [address] [place] [address] Phone [phone] Care Team Providers Care Log Snaker Name Role Phone Brown Farley MD Unavailable [phone] DAYLIN VAUGHAN MD Unavailable ADE ROSARIO Unavailable PROBLEMS Condition Status Date Provider Notes OBESITY active Brown Farley MD SHORTNESS OF BREATH-01/09 CT CHEST NEG active ? John Garay RN DEPRESSION active ? Brown Farley MD ENCOUNTERS Date Type Provider Location Encounter Diag nosis - In-person encounter Office Visit Brown Farley MD [place] - In-person encounter Office Visit Brown Farley MD [place] DEPRESSIONSHORTNESS OF BREATH-01/09 CT CHEST NEGOBESITY [...] /min Mandeep Manacop weight E&M 176 [lb_av] [facility] ALLERGIES No Known Drug Allergies RESULTS Date Observation Value Provider Reference Range Interpretation Location platelet count 341 10*3[facility] hematocrit, blood 44.3 % [facility] international normalized ratio (INR) 1.0 [facility] thyroid stimulating hormone, serum 3.18 u[IU]/mL [facility] D-dimer quantitative mcg/mL 269 ug/mL [facility] alanine aminotransferase (SGPT), serum 46 1/L [facility] aspartate aminotransferase (SGOT), serum 30 1/L [facility] creatinine, serum 1.16 mg/dL [facility] potassium, serum 4.8 mmol/L [facility] sodium, serum 133 mmol/L [facility] HISTORY OF MEDICATION USE Medication Status Instructions Dates Provider Indications Com ments PRILOSEC OTC 20 MG ORAL TABLET DELAYED RELEASE active 1 tab once a day [facility] ADULT ASPIRIN LOW STRENGTH 81 MG ORAL TABLET DISINTEGRATING active once a day [facility] TRAMADOL HCL 50 MG ORAL TABLET active every 4hrs as needed [facility] CIPRO 500 MG ORAL TABLET active 1 tab twice a day [facility] SOCIAL HISTORY Date Observation Value Provider social [...] Payer name Policy type / Coverage type [place] [employer] [facility] Medicaid 1 [id number] TREATMENT PLAN Date Name Performer FOLLOW UP Brown Farley MD FOLLOW UP Brown Farley MD FOLLOW UP:still sob. still needs an echo H er updated medication list for this problem includes: Adult Aspirin Low Strength 81 Mg Tbdp (Aspirin) ..... Once a day Orders: E KG ([id number]) BP today: 108/82 Prior BP: 115/87 (01/03/2012) N uclear Stress Findings: 1. Normal Gregroy protocol exercise tolerance test. 2 . Normal [...]
== END 2025-01-18 11:46 | disposition home or self-care (01) ==
PROVIDERS: General Practice; Emergency Provider Registered Nurse; PCP Nurse Practitioner Family
DX: N39.0 Urinary tract infection, site not specified (principal); I10 Essential (primary) hypertension; J45.20 Mild intermittent asthma, uncomplicated; E78.00 Pure hypercholesterolemia, unspecified; E03.9 Hypothyroidism, unspecified; E55.9 Vitamin D deficiency, unspecified; F41.9 Anxiety disorder, unspecified; F31.9 Bipolar disorder, unspecified; Z98.84 Bariatric surgery status; Z87.442 Personal history of urinary calculi; Z87.891 Personal history of nicotine dependence; Z90.722 Acquired absence of ovaries, bilateral; Z90.79 Acquired absence of other genital organ(s); Z90.710 Acquired absence of both cervix and uterus; Z90.49 Acquired absence of other specified parts of digestive tract
CPT/HCPCS: 36415; 74177; 80053; 81001; 85025; 87086; 87186; 96360; 99284; A9270; J7030; Q9967

== ENCOUNTER 2025-05-05 15:23 | Emergency (ER) | payer OTHER, SELFPAY ==
--- NOTE | 2025-05-05 15:25 | ED_ITS ---
HPI - URI/Sore Throat General Chief Complaint: Upper Respiratory Infection Stated Complaint: Sore throat Time Seen by Provider: 05/05/25 15:24 Source: patient Mode of arrival: ambulatory Limitations: no limitations History of Present Illness HPI Narrative: Patient is a 50-year-old female who presents with sore throat and cough that started yesterday evening and worsened this morning. States it feels like her throat is on fire and hurts to swallow. Patient testing negative at work for COVID. Has taken DayQuil. Denies any fever, chills, nausea, vomiting, diarrhea. Related Data Home Medications ?Medication ?Instructions ?Recorded ?Confirmed ?Last Taken ?Type calcium 315 mg (as 1 tablet PO DAILY 02/19/21 09/15/24 02/07/22 History citrate)-vitamin D3 6.25 mcg (250 unit) tablet Allergies Allergy/AdvReac Type Severity Reaction Status Date / Time ibuprofen AdvReac Intermediate Gastrointestinal Verified 05/05/25 15:43 Upset Review of Systems Review of Systems: All systems reviewed & are unremarkable except as noted in HPI and below Constitutional: Constitutional: Denies chills, Denies fatigue, Denies fever(s), Denies headache(s), Denies malaise and Denies weakness Eyes: Eyes: Denies blurry vision, Denies itchy eyes and Denies loss of vision ENT: Denies otalgia, Denies headache(s), Denies nasal congestion, Denies sinus pain and Reports sore throat Cardiovascular: Cardiovascular: Denies chest pain, Denies irregular heart rhythm and Denies dyspnea Respiratory: Respiratory: Reports cough and Denies dyspnea Gastrointestinal: Gastrointestinal: Denies abdominal pain, Denies diarrhea, Denies nausea and Denies vomiting Musculoskeletal: Musculoskeletal: Denies back pain, Denies myalgias and Denies arthralgias Integumentary/Breasts: Skin/Breast: Denies pruritus and Denies rash Neurologic: Denies headache(s), Denies loss of vision and Denies weakness Psychiatric: Psychiatric: Reports no additional psychiatric complaints Endocrine: Endocrine: Denies fatigue Allergic/Immunologic: Allergic/Immunologic: Denies itchy eyes PMFSH Past Medical History Medical History Obese Essential hypertension Migraine Disorder of thyroid Headache Fatigue due to depression Nondisplaced fracture of middle phalanx of left index finger Nondisplaced fracture of middle phalanx of left index finger Bipolar depression Anxiety Kidney stone Hypercholesteremia Hypothyroidism Mild intermittent asthma without complication Plantar fasciitis, bilateral Vitamin D deficiency Surgical History Surgical History History of total hysterectomy with bilateral salpingo-oophorectomy (BSO) (04/2006) Due to endometriosis History of sleeve gastrectomy (05/2020) Hx of cholecystectomy (07/2008) Hx of tubal ligation (07/2000) Family History Family History Sibling , Due to house fire Hypothyroidism Father Hypertension Cerebrovascular accident, Onset Age: 48 Due to uncontrolled hypertension Seizure disorder As a result of CVA Asthma Depression Mother , Due to house fire Heart disease Sibling Depression Thyroid disorder Other Family history of blood dyscrasia Family history of malignant neoplasm Social History Social History Social History: The 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 She may drink an alcoholic beverage once every couple of months. 09/14/24 very confident with medical forms Smoking packs per day: 0.5 Smoking cigarettes per day: 10.0 Years smoked: 10 Smoking pack-years: 5.00 Smoking status: Former smoker Tobacco type: cigarettes Second hand tobacco smoke exposure: Yes Smoking end date: 09/30/17 Alcohol intake: former Substance use: never Substance use type: does not use Do You Feel Safe in your Home?: Yes Lack of Transportation: No Lack of Food: Never True Current Housing: I Have Housing Concerned About Future Housing: No Difficulty Paying Gas/Electric Bills: No Difficulty Paying for Meds: No Currently Unemployed: No Education: High School Diploma/GED Difficulty w/ Childcare or Family Care: No Living arrangements: with family Occupation/Education: occupation 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 There is no relevant family history pertinent to the presenting complaint. Exam Const: General: cooperative, healthy appearing, comfortable, no acute distress and well nourished Nutritional Appearance: well nourished Orientation/consciousness: patient oriented x3 Limitations: no limitations HENMT: Head: normal to inspection, normocephalic and atraumatic Ears: hearing grossly normal bilaterally, external ears normal, TM's normal bilaterally, EAC's normal and no periauricular adenopathy Face/Nose/Sinus: Normal external nose present, Abnormal mucous membranes and turbinates present erythematous bilateral and diffuse, normal facial exam, sinuses nontender and face symmetric Face and sinus: normal facial exam, sinuses nontender and face symmetric Mouth: Yes Normal oral and palatal mucosa present, Yes lip normal, Yes tongue normal, Yes Normal salivary glands and ducts present, Yes oropharynx normal and Yes moist mucous membranes Teeth and gingiva: dentition normal Throat: tonsils normal, uvula midline, posterior oropharynx abnormal erythema and postnasal drainage Eyes: General: appearance normal, both eyes and all related structures Alignment and Position: alignment normal and position normal Periorbital: periorbital findings normal Eyelids: eyelids normal Pupils: Equal, round and reactive pupils present Neck: Neck: normal visual inspection, full ROM, no lymphadenopathy and supple Chest: Chest palpation & inspection: normal inspection of the chest and normal palpation of entire chest wall Resp: Effort & Inspection: normal respiratory effort and able to speak in complete sentences Auscultation: clear to auscultation bilaterally, no crackles, no rales, no rhonchi and no wheezes Cardio: Rate: regular rate Rhythm: regular rhythm Heart sounds: S1 normal heart sound present and S2 normal heart sound present GI: Inspection: normal to inspection Skin: General skin exam: normal color and no rashes or lesions noted Neuro: General: patient oriented x3 and moves all extremities Cranial nerves: Yes Equal, round and reactive pupils present Speech: normal speech Gait exam (Neuro): Normal gait present Extrem: General: normal to inspection, full ROM and no edema Psych: Appearance: grossly normal and well kempt Mental Status: mental status grossly normal Speech and movement: Normal speech and movement present Affect: normal affect Attitude: cooperative Thought process: Normal thought process present Course Course Emergency Course: Discharge instructions reviewed with patient, as well as provided in writing per nursing staff. The instructions also include specific and strict return/GO TO THE ER as well as f/u information. All questions have been answered, and the patient deny any further questions with discharge and discharge plan. Portions of this record may have been created with voice recognition software Level of Care: Express Care Visit Vital Signs Vital signs: Vital Signs Temperature 36.1 C L 05/05/25 15:28 Pulse Rate 79 05/05/25 15:28 Respiratory Rate 16 05/05/25 15:28 Blood Pressure 111/78 05/05/25 15:28 Pulse Oximetry 99 05/05/25 15:28 Oxygen Delivery Room Air 05/05/25 15:28 Temperature 36.1 C L 05/05/25 15:28 Pulse Rate 79 05/05/25 15:28 Respiratory Rate 16 05/05/25 15:28 Blood Pressure 111/78 05/05/25 15:28 Pulse Oximetry 99 05/05/25 15:28 Oxygen Delivery Room Air 05/05/25 15:28 Reviewed MDM - URI/Sore Throat MDM Narrative Medical decision making narrative: Pt well hydrated appearing, in no respiratory distress, hemodynamically stable. Recommend supportive care. The patient is stable at time of discharge the clinical impression was discussed and the patient was given the opportunity to ask questions, which were addressed as completely as possible given the information available at present. Anticipatory guidance and return to care precautions were discussed and the importance of primary care follow-up was stressed and encouraged. The patient voiced understanding of the plan, indications to return, and the need for follow-up. Exam findings show no acute concerns or changes Patient is appropriate for outpatient treatment and follow-up. Differential diagnosis considered: Brooks virus, strep pharyngitis, allergic rhinitis, upper respiratory tract infection, sinusitis, rhinosinusitis, nasopharyngitis. viral pharyngitis, otitis media, otitis externa, otitis effusion, foreign body, cerumen impaction, viral syndrome, and influenza.? Medical Records Attestation: I reviewed the patient's medical records. Lab Data Attestation: I reviewed the patient's lab results. Labs: Lab Results 05/05/25 Range/Units 15:32 POC Grp A Strep Screen Negative (Negative) Discharge Plan Discharge Clinical Impression: Upper respiratory infection Qualifiers: URI type: unspecified viral URI Qualified Code(s): J06.9 - Acute upper respiratory infection, unspecified Patient Disposition: Home Condition: Stable Instructions: Upper Respiratory Infection (ED) Additional Instructions: Your rapid strep swab was negative today at [facility]. A throat culture will be sent to the laboratory for further testing. If the test is positive, you will receive a phone call within 48 hours and an appropriate antibiotic will be initiated at that time. Your symptoms are likely due to a viral illness, which is not treated with antibiotics. Viral symptoms can be present for up to a few weeks. -For pain/fever, you may take: Tylenol 650-1000mg by mouth every 4-6 hours. Do not exceed 4000mg in 24 hours. -Antihistamine medication such as Benadryl/Zyrtec at night and Claritin/Bebe during the day can help improve symptoms. -Use Flonase twice a day for 5 days then daily to help reduce the inflammation and dry up your sinuses. -You can also use Sudafed behind the pharmacy counter(12 or 24 hour). Be sure to drink plenty of water with these medications at least 8 ounces with every dose and it is important to drink 8 to 10 glasses of water per day. Water is a natural decongestant -Eat and drink things that are easy to swallow, like tea or soup, or popsicles. -Oral rinses such as: Salt water gargles and/or may use topical anesthetic (eg. Chloraseptic spray) or lozenges to relieve dryness or throat pain). -Frequent hand washing or hand supervisor winding department is one of the best ways to prevent spread of infection. -Using a vaporizer or humidifier at night will also help thin secretions and help with coughing up phlegm. Call your Primary Care Doctor and make a follow-up appointment in 3 days. If your cough worsens, you develop a fever greater than 103, you develop shaking chills, a fast heartbeat, trouble breathing and/or feel you are are breathing much faster than usual, call your Primary Care Doctor or go to the ER. Patient Language: Tamazight Prescriptions: New benzonatate 100 mg capsule 100 mg PO BID PRN (Reason: cough) Qty: 14 0RF fluticasone propionate [Flonase Allergy Relief] 50 mcg/actuation spray,suspension 1 spray intranasal DAILY Qty: 16 0RF Rx Instructions: administer into each nostril No Action calcium citrate-vitamin D3 315 mg-6.25 mcg (250 unit) Tablet 1 tablet PO DAILY Follow-up/Referrals: Kayla Berumen APRN [Primary Care Provider] - 3 Days Stand Alone Forms: Work/School Release IP Time of Disposition: 15:51
[2025-05-05 15:28] VITALS: BP 111/78; PULSE 79; RESP 16; TEMP 36.1; O2SAT 99
--- OUTSIDE RECORDS SUMMARY | 2025-05-05 15:33 | XMS_ITS | Clinical Summary ---
Author Organization [facility] Address [address] [address] Care Team Providers Care Lap Runner Name Role Phone Kayla Berumen APRN-ETHYLBENZENE CONVERTER HELPER Primary Care Provider Source Comments [facility],non-owned Affiliates and Associated Physician Practices is amultiple site organization consisting of ambulatory clinics and hospital sitesin [place], [place], [place] and [place]. This disclosure is being madepursuant to the Care Everywhere program and may not contain all information available regarding this patient. Last updated 18.[facility] Allergies No known active allergies Medications * [...] 0 07/07/2018 Active vitamin D, ergocalciferol, (DRISDOL) 88285 UNITS capsule TK 1 C PO Q [...] on file Legal Sex Female 7:41 AM BENCH ASSEMBLER Gender Identity Not on file Sexual Orientation Not on file Last Filed Vital Signs Vital Sign Reading Time Taken Comments Blood Pressure 114/76 09/17/2018 2:01 PM BENCH ASSEMBLER Pulse 84 09/17/2018 2:01 PM BENCH ASSEMBLER Temperature 36.7 C (98 F) 09/17/2018 2:01 PM BENCH ASSEMBLER Respiratory Rate - - Oxygen Saturation - - Inhaled Oxygen Concentration - - Weight 86.2 kg (190 lb) 09/17/2018 2:01 PM BENCH ASSEMBLER Height 149.9 cm (4' 11) 09/17/2018 2:01 PM BENCH ASSEMBLER Body Mass Index 38.38 09/17/2018 2:01 PM BENCH ASSEMBLER Plan of Treatment Health Maintenance Due Date Last Done Comments COLOGUARD (AGES 45-75) - COLON CA SCREENING 1974 COLON MONITORING 1974 COLONOSCOPY - COLON CA SCREENING 1974 CT COLONOGRAPHY - COLON CA SCREENING 1974 Colorectal Cancer Screening 1974 FIT - COLON CA SCREENING 1974 FLEX SIG - COLON CA SCREENING 1974 LIPID TESTING 1974 MAMMOGRAM 1974 HIV SCREENING 1989 HEPATITIS C SCREENING 01/31/1992 DTAP/TDAP/TD VACCINES (1 - Tdap) 1993 HEPATITIS B VACCINE (1 of 3 - 19+ 3-dose series) 1993 PAP SMEAR 1995 PNEUMOCOCCAL VACCINE 50+ (1 of 1 - PCV) 02/05/2024 ZOSTER VACCINE (1 of 2) 02/05/2024 COVID-19 VACCINE (1 - 2023- season) 2024 DEPRESSION SCREENING 09/30/2024 INFLUENZA VACCINE (#1) 2025 , 07/13/2020, 07/02/2019, Additional history exists HIB VACCINE [...] patient's age to complete this topic Insurance [facility] Care Teams Lap Runner Relationship Specialty Start Date End Date Kayla Berumen APRN-ETHYLBENZENE CONVERTER HELPER [address] [place] [id number] PCP - General 09/08/18
--- OUTSIDE RECORDS SUMMARY | 2025-05-05 15:33 | XMS_ITS ---
Author Organization [facility] Address [address] [place] [address] Care Team Providers Care Physician Pediatrician Name Role Phone Jannette Currie Primary Care Provider [phone] REASON FOR VISIT follow-up Social History Sex Assigned At : Social History Observation Description Sex Assigned At Female Encounters Encounter Location Date Provider Diagnosis [place] [place] [address] 02/18/2024 Jannette Currie Plan Of Treatment No Information Progress Notes * Yazmin BUCIODOB:1975 (50 yo F)Acc No.[id number]:02/18/2024 UNLOCKED PROGRESS NOTE Patient: Yazmin BLEVINS Provider: GORGE Rodriguez, KITCHEN WORK SUPERVISOR, DISPATCHER REFINERY-C :1975 A ge:49 Y S ex:Female Date:02/18/2024 Address:[address] [place], [place] [id number] Subjective: * Chief Complaints: * 1 . Follow-up. * Medical History: Objective: * Vitals: Assessment: Plan: * Treatment: * * Electronic signature of Otilia Currie , [id number] on 05/05/2025 at 03:32 PM CDT Sign off status: Pending * Provider: GORGE Rodriguez, KITCHEN WORK SUPERVISOR, DISPATCHER REFINERY-C Date: 0 02/18/2024 Generated for Neili ng/Faibethg/eTransmitting on: 05/05/2025 03:32 PM CDT
--- OUTSIDE RECORDS SUMMARY | 2025-05-05 15:33 | XMS_ITS | Patient Health Record ---
Author Organization [facility] Address [address] [place] [address] Care Team Providers Care Dealership General Manager Name Role Phone Jannette Currie Primary Care Provider SissyGregglola Unavailable [phone] Allergies No Known Allergies Reason For Referral Reason Start individual the [facility] if possible Diagnosis 1 Bipolar 1 disorder ( F31.9) Referral Organization [facility] Referring Provider First Name Clare Referring Provider Last Name Luci Referring Provider Speciality Behavioral Health Referred Provider Specialty Behavioral H [facility] Clinical Notes Tona Weinberg 05/13 01:45:42 PM >HN reached out to client and client requested an email be sent to her with the information on starting therapy through [facility]. HN verified client's email and sent email with information. Client verbalized understanding and was told to contact HN again if she had any questions. Referral Priority Routine Medications Medication SIG (Take, Route, Frequency, Duration) Notes Start Date End Date Status Vyvanse 30 MG 1 capsule in the morning Orally Once a day; Duration: 30 days 10/01/2023 Not-Takin g lamoTRIgine 25 MG 1 tablet x 14 days, then 2 tablets (for 50 mg) x 14 days Orally daily; Duration: 28 days Active Topamax 50 MG 1 tablet Orally Twic e a day Not-Taking Vyvanse 30 MG 1 capsule in the morning Orally Once a day; Duration: 30 days 06/10/2024 Active lamoTRIgine 100 MG After completing 25 mg script- take 1 tablet once a day for 14 days, then 1.5 tablets once a day for 16 days Orally Once a day; Duration: 30 days Active Vyvanse 30 MG 1 capsule in the morning Orally Once a day; Duration: 30 days 05/13/2024 Active hydrOXYzine Pamoate 50 MG 1 capsule as n eeded Orally Three times daily; Duration: 30 days Active Social History Sex Assigned At : Social History Observation Description Sex Assigned At Female Problems Problem Type SNOMED Code ICD Code Onset Dates Problem Status W/U Status Risk Notes Problem Generalized anxiety disorder (13366744) Generalized anxiety disorder (F41.1) Active confirmed Problem Depression (536306901) Depression (F32.9) 07/02/20 Active confirmed Problem Anxiety (40165788) Anxiety (F41.9) 07/02/20 Active confirmed Problem Bipolar 1 disorder (522672180) Bipolar 1 disorder (F31.9) 07/02/20 Active confirmed Problem Attention deficit hyperactivity disorder, 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) Adult ADHD (F90.0) Active confirmed Problem Learning disability (3458460) Learning disability (F81.9) Active confirmed Problem History of psychiatric disorder (915477463) History of posttraumatic stress disorder (PTSD) (Z86.59) Active confirmed Problem Adult health examination (331912429) Routine adult health maintenance (Z00.00) Active confirmed Encounters Encounter Location Date Provider Diagnosis [address] [address] 05/13/2024 Farhana Sheehan Generalized anxiety disorder F41.1 ; Bipolar 1 disorder F31.9 and Adult ADHD F90.[address] [address] 05/13/2024 Farhana Sheehan Assessments Encounter Date Diagnosis [...] Topamax refill which she will do today. 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 No acute safety concerns the time of this appt, he is agreeable to treatment plan and was provided an opportunity to ask questions. May self-administer medications or be administered own oral medications per [facility] protocols. Provided informed consent with understanding of [...] Insured Coverage Start Date Coverage End Date [facility] Attn Claims Department [address] [place] [address] [phone] [id number] Yazmin Nova Self - patient is the insured 2 [employer] Attn Claims Department [address] [place] [address] [phone] [id number] Yazmin Nova Self - patient is the insured 2 Medical (General) History Medical History History ICD Code Depression ADHD Anxiety Learning Disability Surgical History Surgery Date(Month/Year) Gastic sleeve 2019 Cholecysectomy Tubal Ligation Hernia Total Hysterectomy Hospitalization History Reason Date(Month/Year) Childbirth with eclampsia 1999
[2025-05-05 15:42] LABS: EDSTREPNEGPOS1 Negative (Negative)
== END 2025-05-05 15:54 | disposition home or self-care (01) ==
PROVIDERS: Emergency Provider Nurse Practitioner Family; PCP Nurse Practitioner Family
DX: J06.9 Acute upper respiratory infection, unspecified (principal); Z87.891 Personal history of nicotine dependence; I10 Essential (primary) hypertension; E78.00 Pure hypercholesterolemia, unspecified; E03.9 Hypothyroidism, unspecified; J45.909 Unspecified asthma, uncomplicated; E55.9 Vitamin D deficiency, unspecified; E66.9 Obesity, unspecified; Z68.34 Body mass index [BMI] 34.0-34.9, adult; Z98.84 Bariatric surgery status; Z90.710 Acquired absence of both cervix and uterus; Z90.722 Acquired absence of ovaries, bilateral
CPT/HCPCS: 87081; 87880; 99213; G0463

== ENCOUNTER 2025-07-06 22:51 | Emergency (ER) | payer BC, SELFPAY ==
--- OUTSIDE RECORDS SUMMARY | 2024-02-18 10:20 | XMS_ITS ---
Author Organization [facility] Address [address] [place] [address] Care Team Providers Care Miller Apprentice Name Role Phone Jannette Currie Primary Care Provider REASON FOR VISIT follow-up Social History Sex Assigned At : Social History Observation Description Sex Assigned At Female Encounters Encounter Location Date Provider Diagnosis [address] [place] [address] 02/18/2024 Jannette Currie Plan Of Treatment No Information Progress Notes * Yazmin BUCIODOB:1975 (50 yo F)Acc No.[id number]:02/18/2024 UNLOCKED PROGRESS NOTE Patient: Yazmin BLEVINS Provider: GORGE Rodriguez, GENERAL HANDLING SUPERVISOR, [employer] :1975 A ge:49 Y S ex:Female Date:02/18/2024 Address:[address] [place], [place] [id number] Subjective: * Chief Complaints: * 1 . Follow-up. * Medical History: Objective: * Vitals: Assessment: Plan: * Treatment: * * Electronic signature of Otilia Currie , [id number] on 07/06/2025 at 10:56 PM CDT Sign off status: Pending * Provider: GORGE Rodriguez, GENERAL HANDLING SUPERVISOR, [employer] Date: 0 02/18/2024 Generated for Printi ng/Faibethg/eTransmitting on: 1 10:56 PM CDT
--- NOTE | ~2025-07-06 | CT_ITS ---
EXAMINATION: CT brain wo con DATE: 07/06/2025 23:06 INDICATION: Left arm numbness. TECHNIQUE: Computed tomography (CT) of the head was performed without intravenous contrast. The mA was adjusted according to patient size. Iterative reconstruction technique was employed. The dose-length product was 605.33 mGy-cm. COMPARISON: Head CT 03/24/2020 FINDINGS: There is no intracranial hemorrhage, acute infarction, or abnormal intracranial mass lesion. The ventricles are normal in size. The orbits are normal. There is mild mucosal thickening in the paranasal sinuses. The mastoid air cells are normal. There is left frontal scalp soft tissue swelling. IMPRESSION: 1. Normal brain. Reviewed, dictated and finalized at location E. IMPRESSION: 1. Normal brain.
--- NOTE | ~2025-07-06 | CT_ITS ---
EXAMINATION: CTA brain carotid DATE: 07/06/2025 23:21 INDICATION: Left arm numbness. TECHNIQUE: Computed tomographic angiography (CTA) of the head was performed with 100 mL Omnipaque-350 intravenous contrast. CTA of the neck was performed with intravenous contrast. Automated exposure control and iterative reconstruction technique were employed. The dose-length product was 838.91 mGy-cm. Maximum intensity projection and volume rendered 3D-reconstructions were created by the technologist on a separate workstation. COMPARISON: Head CT 07/06/2025 FINDINGS: HEAD CTA: There is no intracranial hemorrhage, acute infarction, or abnormal intracranial mass lesion. The ventricles are normal in size. The orbits are normal. There is mild mucosal thickening in the paranasal sinuses. The mastoid air cells are normal. The vertebral arteries are codominant. There is no significant stenosis of basilar artery or the posterior cerebral arteries. The posterior communicating arteries are normal. There is no significant stenosis of the intracranial internal carotid arteries or anterior or middle cerebral arteries. Anterior communicating artery is normal. There is no aneurysm. NECK CTA: There are no pathologically enlarged lymph nodes. There is no significant stenosis of the vertebral arteries. There is no visible plaque in the proximal internal carotid arteries. There is 0% stenosis of the proximal right internal carotid artery relative to normal distal artery lumen diameter (NASCET criteria). There is 0% stenosis of the proximal left internal carotid artery relative to normal distal artery lumen diameter. There is mild cervical spondylosis. IMPRESSION: 1. Normal brain. 2. No aneurysm or significant intracranial arterial stenosis. 3. 0% stenosis of the proximal internal carotid arteries relative to normal distal artery lumen diameters (NASCET criteria). Reviewed, dictated and finalized at location E. IMPRESSION: 1. Normal brain. 2. No aneurysm or significant intracranial arterial stenosis. 3. 0% stenosis of the proximal internal carotid arteries relative to normal dis lucius artery lumen diameters (NASCET criteria).
--- NOTE | ~2025-07-06 | XR_ITS ---
Examination: XR chest 1V portable Clinical History: cough Comparison: 07/26/2020 Technique: Portable AP Findings: Heart size normal. Lungs clear. No acute bony abnormality. IMPRESSION: 1. No acute cardiopulmonary findings given portable technique. Reviewed, dictated and finalized at location R.
--- OUTSIDE RECORDS SUMMARY | 2025-07-06 22:56 | XMS_ITS | Clinical Summary ---
Author Organization [facility] Address [address] [place] [address] Care Team Providers Care Blow Molding Machine Tender Name Role Phone Kayla Berumen APRN-CASTING OPERATOR HELPER Primary Care Provider Source Comments [facility],non-owned Affiliates and Associated Physician Practices is amultiple site organization consisting of ambulatory clinics and hospital sitesin [place], [place], [place]. This disclosure is being madepursuant to the Care Everywhere program and may not contain all information available regarding this patient. Last updated 18.[facility] Allergies No known active allergies Medications * [...] 0 07/07/2018 Active vitamin D, ergocalciferol, (DRISDOL) 56477 UNITS capsule TK 1 C PO Q [...] on file Legal Sex Female 7:41 AM LENS MOUNTER Gender Identity Not on file Sexual Orientation Not on file Last Filed Vital Signs Vital Sign Reading Time Taken Comments Blood Pressure 114/76 09/17/2018 2:01 PM LENS MOUNTER Pulse 84 09/17/2018 2:01 PM LENS MOUNTER Temperature 36.7 C (98 F) 09/17/2018 2:01 PM LENS MOUNTER Respiratory Rate - - Oxygen Saturation - - Inhaled Oxygen Concentration - - Weight 86.2 kg (190 lb) 09/17/2018 2:01 PM LENS MOUNTER Height 149.9 cm (4' 11) 09/17/2018 2:01 PM LENS MOUNTER Body Mass Index 38.38 09/17/2018 2:01 PM LENS MOUNTER Plan of Treatment Health Maintenance Due Date [...] 02/05/2024 ZOSTER VACCINE (1 of 2) 02/05/2024 DEPRESSION SCREENING 09/30/2024 COVID-19 VACCINE (1 - 2023- season) 2025 INFLUENZA VACCINE (#1) 2025 , 07/13/2020, 07/02/2019, [...] patient's age to complete this topic Insurance [facility] Care Teams Blow Molding Machine Tender Relationship Specialty Start Date End Date Kayla Berumen APRN-CASTING OPERATOR HELPER [address] [place] [id number] PCP - General 09/08/18
--- OUTSIDE RECORDS SUMMARY | 2025-07-06 22:56 | XMS_ITS | Patient Health Record ---
Author Organization Formerly [facility] Address [address] [place] [address] Care Team Providers Care Nitric Acid Concentrator Operator Name Role Phone Jannette Currie Primary Care Provider [phone] Allergies No Known Allergies Reason For Referral No Information Medications Medication SIG (Take, Route, Frequency, Duration) [...] Status Risk Notes Problem Generalized anxiety disorder (80172683) Generalized anxiety disorder (F41.1) Active confirmed Problem Depression (529984792) Depression (F32.9) 07/02/20 22 Active confirmed Problem Anxiety (26761214) Anxiety (F41.9) 07/02/20 22 Active confirmed Problem Bipolar 1 disorder (239424414) Bipolar 1 disorder (F31.9) 07/02/20 22 Active confirmed Problem Attention deficit hyperactivity disorder, predominantly inattentive type (61327708) Adult ADHD (F90.0) Active confirmed Problem Learning disability (2311607) Learning disability (F81.9) Active confirmed Problem History of psychiatric disorder (569568743) History of posttraumatic stress disorder (PTSD) (Z86.59) Active confirmed Problem Adult health examination (958457389) Routine adult health maintenance (Z00.00) Active confirmed Plan Of Treatment No Information Insurance Providers Payer Name Payer Address Payer Phone Subscriber Number Group Number Insured Name Patient Relationship to Insured Coverage Start Date Coverage End Date [facility] Att Claims Department [address] [phone] [id number] Yazmin Nova Self - patient is the insured 2 [facility] Claims Department [address] [phone] [id number] Yazmin Nova Self - patient is the insured 2 Medical (General) History Medical History History ICD Code Depression ADHD Anxiety Learning Disability Surgical History Surgery Date(Month/Year) Gastic sleeve 2020 Cholecysectomy Tubal Ligation Hernia Total Hysterectomy Hospitalization History Reason Date(Month/Year) Childbirth with eclampsia 1999
--- NOTE | 2025-07-06 23:01 | ECG_ITS ---
Test Date: 2025-07-06 23:43:09 Measurements Intervals [place] Rate: 59 P: 29 [place]: 172 QRS: 4 QRSD: 90 T: 41 QT: 395 QTc: 392 Interpretive Statements SINUS BRADYCARDIA BORDERLINE ECG No previous ECG available for comparison Electronically Signed On 07-07-2025 06:12:03 CDT by Gray Nelson D.O.
--- NOTE | 2025-07-06 23:05 | PC.NURSE ---
Pt. to CT.
[2025-07-06 23:12] LABS: Estimated Glomerular Filt Rate 58
[2025-07-06 23:22] VITALS: BP 149/108; PULSE 66; RESP 16; TEMP 36.4; O2SAT 97
--- NOTE | 2025-07-06 23:24 | PC.NURSE ---
This RN assumed care/report from Yael TURK.
[2025-07-06 23:36] LABS: Alanine Aminotransferase 19 U/L (6-35); Albumin Level 4.0 g/dL (3.5-5.1); Alkaline Phosphatase 86 U/L (38-126); Anion Gap 4 mmol/L (4-12); Aspartate Amino Transferase 28 U/L (14-36); Bilirubin,Total 0.2 mg/dL (0.2-1.3); Blood Urea Nitrogen 18 mg/dL (7-17); Calcium 10.4 mg/dL (8.4-10.2); Carbon Dioxide 26 mmol/L (22-30); Chloride 106 mmol/L (98-107); Estimated Glomerular Filt Rate > 60; Glucose 99 mg/dL (65-110); Magnesium 2.2 mg/dL (1.6-2.3); Potassium 4.2 mmol/L (3.4-5.0); Sodium 136 mmol/L (137-145); Total Protein 7.4 g/dL (6.3-8.2)
[2025-07-06 23:39] LABS: INR 0.9; Prothrombin Time 12.2 Seconds (11.1-14.7)
[2025-07-06 23:40] LABS: Partial Thromboplastin Time 27.3 Seconds (22.3-36.8)
[2025-07-06 23:48] LABS: Troponin I < 0.012 ng/mL (0.000-0.034)
[2025-07-06 23:50] LABS: Hematocrit 43.0 % (37.0-47.0); Hemoglobin 13.7 g/dL (12.0-15.0); Immature Granulocyte Percent A 0.6 % (0-0.5); Lymphocytes Absolute Auto 2.36 K/mm3 (0.9-3.2); Mean Corpuscular HGB Conc 31.9 g/dl (32-36); Mean Corpuscular Hemoglobin 30.5 pg (26-34); Mean Corpuscular Volume 95.8 fl (80-100); Nucleated Red Blood Cells Absolute Auto 0.000 K/mm3 (0.0-0.012); Nucleated Red Blood Cells Perc 0.0 % (0.0-0.2); Platelet Count Result 295 k/mm3 (150-375); Red Blood Count 4.49 M/mm3 (4.2-5.4); White Blood Count 6.9 K/mm3 (4.5-10.0)
[2025-07-06 23:52] LABS: Procalcitonin < 0.0 ng/mL
--- NOTE | 2025-07-07 00:03 | ED_ITS ---
HPI - Neuro Symptoms/Deficit General Chief Complaint: Suspected CVA Stated Complaint: left eye swollen, left arm swollen and numb 3 hour Time Seen by Provider: 07/06/25 23:00 History of Present Illness HPI Narrative: Patient is a 50-year-old female who presents emergency department with chief complaint left-sided facial swelling and left arm numbness. Patient reports that she had a palpable developed on the left side of her face in her eyebrow patient reports she has noticed that her face has been swelling and reports that she noticed some tingling on her left arm the patient states she was last known well on 07/05 at 9:30 p.m. patient reports she had change in sensation on the left side of her face and left neck and left shoulder patient reports she has full range of motion and no difficulty with walking Related Data Home Medications ?Medication ?Instructions ?Recorded ?Confirmed ?Last Taken ?Type calcium 315 mg (as 1 tablet PO DAILY 02/19/21 0 05/20/25 02/07/22 History citrate)-vitamin D3 6.25 mcg (250 unit) tablet Allergies Allergy/AdvReac Type Severity Reaction Status Date / Time ibuprofen AdvReac Intermediate Gastrointestinal Verified 07/06/25 23:38 Upset Review of Systems 2 Review of Systems: A 10 system review of systems was completed on the patient and is negative except for what is stated in the HPI. Nursing and ancillary documentation was reviewed. [facility] Past Medical History Medical History Obese Essential hypertension Migraine Disorder of thyroid Headache Fatigue due to depression Nondisplaced fracture of middle phalanx of left index finger Nondisplaced fracture of middle phalanx of left index finger Bipolar depression Anxiety Kidney stone Hypercholesteremia Hypothyroidism Mild intermittent asthma without complication Plantar fasciitis, bilateral Vitamin D deficiency Surgical History Surgical History History of total hysterectomy with bilateral salpingo-oophorectomy (BSO) (04/2006) Due to endometriosis History of sleeve gastrectomy (05/2020) Hx of cholecystectomy (07/2008) Hx of tubal ligation (07/2000) Family History Family History Sibling , Due to house fire Hypothyroidism Father Hypertension Cerebrovascular accident, Onset Age: 48 Due to uncontrolled hypertension Seizure disorder As a result of CVA Asthma Depression Mother , Due to house fire Heart disease Sibling Depression Thyroid disorder Other Family history of blood dyscrasia Family history of malignant neoplasm Social History Social History Social History: The 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 She may drink an alcoholic beverage once every couple of months. 05/13/25 very confident with medical forms Smoking packs per day: 0.5 Smoking cigarettes per day: 10.0 Years smoked: 10 Smoking pack-years: 5.00 Smoking status: Former smoker Tobacco type: cigarettes Second hand tobacco smoke exposure: Yes Smoking end date: 09/30/17 Alcohol intake: former Substance use: never Substance use type: does not use Lack of Transportation: No Lack of Food: Never True Current Housing: I Have Housing Concerned About Future Housing: No Difficulty Paying Gas/Electric Bills: No Difficulty Paying for Meds: No Currently Unemployed: No Education: High School Diploma/GED Difficulty w/ Childcare or Family Care: No Living arrangements: with family Occupation/Education: occupation 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 HEAD: Normocephalic, atraumatic. EYES: PERRLA and EOMI. ENT: Nares clear, no rhinorrhea or epistaxis. Mucous membranes moist. Swelling present in the left eyebrow area there is mild swelling present to the face as well NECK: Supple. CHEST: Clear to auscultation. No respiratory distress. HEART: Regular rate and rhythm. No murmur heard. Normal peripheral pulses. ABDOMEN: Soft, nontender, nondistended, normal active bowel sounds. EXTREMITIES: Normal range of motion. No edema. SKIN: Warm, dry, no rash. NEURO: No focal deficits. Alert and oriented x3. PSYCH: Normal mood and affect. Course Vital Signs Vital signs: Vital Signs Temperature 36.4 C L 07/06/25 23:22 Pulse Rate 66 07/06/25 23:22 Respiratory Rate 16 07/06/25 23:22 Blood Pressure 149/108 H 07/06/25 23:22 Pulse Oximetry 97 07/06/25 23:22 Oxygen Delivery Room Air 07/06/25 23:22 Temperature 36.4 C L 07/06/25 23:22 Pulse Rate 62 07/07/25 00:08 Respiratory Rate 16 07/06/25 23:22 Blood Pressure 149/108 H 07/06/25 23:22 Pulse Oximetry 100 07/07/25 00:08 Oxygen Delivery Room Air 07/07/25 00:08 MDM - Neuro Symptoms/Deficit MDM Narrative Medical decision making narrative: Differential diagnosis includes cellulitis, infection, venous obstruction, CVA Patient shows swelling on the left side of her face as well as an area of cellulitis patient did have some paresthesias on the left upper extremity although this is been ongoing for greater than 24 hours the patient is not a thrombolytics candidate and the symptoms do not appear to be consistent with a CVA at this time specially with the infection on the left side of the face patient was started on clindamycin laboratory studies were obtained that showed no other acute and abnormality including a normal white blood cell count normal lactic acid the patient is given a dose of IV clindamycin in the emergency department plan will be to discharge the patient on Bactrim and Keflex as the patient does have a urinary tract infection Lab Data 07/06/25 23:20 07/06/25 23:20 Labs: Lab Results 07/06/25 07/06/25 07/06/25 Range/Units 22:58 23:11 23:20 WBC 6.9 (4.5-10.0) K/mm3 RBC 4.49 (4.2-5.4) M/mm3 Hgb 13.7 (12.0-15.0) g/dL Hct 43.0 (37.0-47.0) % MCV 95.8 (80-100) fl MCH 30.5 (26-34) pg MCHC 31.9 L (32-36) g/dl RDW 13.3 (11.5-14.5) % Plt Count 295 (150-375) k/mm3 MPV 9.1 (7.4-10.4) fl Immature Gran % (Auto) 0.6 H (0-0.5) % Neut % (Auto) 54.7 (45.5-73.1) % Lymph % (Auto) 34.2 (18.3-44.2) % [place] % (Auto) 7.7 (2.6-8.5) % Eos % (Auto) 2.2 (0-4.4) % Baso % (Auto) 0.6 (0.2-1.2) % Lymph # (Auto) 2.36 (0.9-3.2) K/mm3 [place] # (Auto) 0.5 (0.1-0.6) K/mm3 Eos # (Auto) 0.2 (0-0.3) K/mm3 Baso # (Auto) 0.0 (0.0-0.1) K/mm3 Abs Immat Gran (auto) 0.04 H (0.00-0.031) K/mm3 Absolute Neuts (auto) 3.8 (1.3-6.7) K/mm3 Absolute Nucleated RBC 0.000 (0.0-0.012) K/mm3 Nucleated RBC % 0.0 (0.0-0.2) % PT 12.2 (11.1-14.7) Seconds INR 0.9 APTT 27.3 (22.3-36.8) Seconds Sodium 136 L (137-145) mmol/L Potassium 4.2 (3.4-5.0) mmol/L Chloride 106 (98-107) mmol/L Carbon Dioxide 26 (22-30) mmol/L Anion Gap 4 (4-12) mmol/L BUN 18 H (7-17) mg/dL Creatinine 1.00 0.82 (0.7-1.2) mg/dL Estim Creat Clear Calc Not Reportable Not Reportable Estimated GFR 58 L > 60 (59 - ) Glucose 99 (65-110) mg/dL POC Capillary Glucose 99 (65-105) mg/dl Lactic Acid 0.6 L (0.7-2.0) mmol/L Calcium 10.4 H (8.4-10.2) mg/dL Magnesium 2.2 (1.6-2.3) mg/dL Total Bilirubin 0.2 (0.2-1.3) mg/dL AST 28 (14-36) U/L ALT 19 (6-35) U/L Alkaline Phosphatase 86 (38-126) U/L Troponin I < 0.012 (0.000-0.034) ng/mL Total Protein 7.4 (6.3-8.2) g/dL Albumin 4.0 (3.5-5.1) g/dL Procalcitonin < 0.0 ng/mL Urine Color (Yellow) Urine Appearance (Clear) Urine pH (5.0-9.0) Ur Specific [place] (1.001-1.035) Urine Protein (Negative) mg/dL Urine Glucose (UA) (Negative) mg/dL Urine Ketones (Negative) mg/dL Ur Blood (Man) (Negative) Urine Nitrate (Negative) Urine Bilirubin (Negative) Urine Urobilinogen (<2.0) mg/dL Leukocyte Esterase Rfl (Negative) CLARA/UL Urine RBC (0-2) /hpf Urine WBC (0-3) /hpf Ur Squamous Epith Cells (Few) /hpf Urine Bacteria /hpf Urine Casts 07/07/25 Range/Units 00:20 WBC (4.5-10.0) K/mm3 RBC (4.2-5.4) M/mm3 Hgb (12.0-15.0) g/dL Hct (37.0-47.0) % MCV (80-100) fl MCH (26-34) pg MCHC (32-36) g/dl RDW (11.5-14.5) % Plt Count (150-375) k/mm3 MPV (7.4-10.4) fl Immature Gran % (Auto) (0-0.5) % Neut % (Auto) (45.5-73.1) % Lymph % (Auto) (18.3-44.2) % Childress % (Auto) (2.6-8.5) % Eos % (Auto) (0-4.4) % Baso % (Auto) (0.2-1.2) % Lymph # (Auto) (0.9-3.2) K/mm3 [place] # (Auto) (0.1-0.6) K/mm3 Eos # (Auto) (0-0.3) K/mm3 Baso # (Auto) (0.0-0.1) K/mm3 Abs Immat Gran (auto) (0.00-0.031) K/mm3 Absolute Neuts (auto) (1.3-6.7) K/mm3 Absolute Nucleated RBC (0.0-0.012) K/mm3 Nucleated RBC % (0.0-0.2) % PT (11.1-14.7) Seconds INR APTT (22.3-36.8) Seconds Sodium (137-145) mmol/L Potassium (3.4-5.0) mmol/L Chloride (98-107) mmol/L Carbon Dioxide (22-30) mmol/L Anion Gap (4-12) mmol/L BUN (7-17) mg/dL Creatinine (0.7-1.2) mg/dL Estim Creat Clear Calc Estimated GFR (59 - ) Glucose (65-110) mg/dL POC Capillary Glucose (65-105) mg/dl Lactic Acid (0.7-2.0) mmol/L Calcium (8.4-10.2) mg/dL Magnesium (1.6-2.3) mg/dL Total Bilirubin (0.2-1.3) mg/dL AST (14-36) U/L ALT (6-35) U/L Alkaline Phosphatase (38-126) U/L Troponin I (0.000-0.034) ng/mL Total Protein (6.3-8.2) g/dL Albumin (3.5-5.1) g/dL Procalcitonin ng/mL Urine Color Yellow (Yellow) Urine Appearance Clear (Clear) Urine pH 6.0 (5.0-9.0) Ur Specific [place] > 1.045 H (1.001-1.035) Urine Protein Negative (Negative) mg/dL Urine Glucose (UA) Negative (Negative) mg/dL Urine Ketones Negative (Negative) mg/dL Ur Blood (Man) Negative (Negative) Urine Nitrate Negative (Negative) Urine Bilirubin Negative (Negative) Urine Urobilinogen 0.2 (<2.0) mg/dL Leukocyte Esterase Rfl 1+ H (Negative) CLARA/UL Urine RBC 0-2 (0-2) /hpf Urine WBC 21-50 H (0-3) /hpf Ur Squamous Epith Cells Occasional (Few) /hpf Urine Bacteria 2+ H /hpf Urine Casts 0-2 Discharge Plan Discharge Clinical Impression: Cellulitis of face, UTI (urinary tract infection), Arm paresthesia, left Patient Disposition: Home Condition: Stable Instructions: Antibiotic Form, Urinary Tract Infection in Women (ED), Cellulitis (ED), Paresthesia (ED), Orbital Cellulitis (ED) Patient Language: Malagasy Prescriptions: New sulfamethoxazole-trimethoprim [Bactrim DS] 800-160 mg tablet 1 tablet PO Q12H Qty: 14 0RF cephalexin 500 mg capsule 500 mg PO QID 7 Days Qty: 28 0RF No Action fluticasone propionate [Flonase Allergy Relief] 50 mcg/actuation spray,suspension 1 spray intranasal DAILY Qty: 16 0RF Rx Instructions: administer into each nostril calcium citrate-vitamin D3 315 mg-6.25 mcg (250 unit) Tablet 1 tablet PO DAILY sertraline 50 mg tablet 50 mg PO DAILY Qty: 90 1RF azithromycin 250 mg tablet See Rx Instructions PO .COMPLEX Qty: 6 0RF Rx Instructions: For 250 mg dose pack: take 500 mg today (day 1), then 250 mg for 4 days (days 2-5) PO Follow-up/Referrals: Kayla Berumen APRN [Primary Care Provider, Family Practice] Time of Disposition: 01:04
[2025-07-07 00:08] VITALS: PULSE 62; O2SAT 100
[2025-07-07 00:32] LABS: Add Urine Microscopic? YES; Appearance Urine Clear (Clear); Glucose Urine UA Negative (Negative); Leukocyte Esterase Ur 1+ LEU/UL (Negative); Nitrate Urine Negative (Negative); Non Pathogenic Casts 0-2; Specific Grav Ur > 1.045 (1.001-1.035)
[2025-07-07] MEDS: CLINDAMYCIN 600 MG/D5W 50 ML 600 MG/50 ML PIGGYBACK 100 MG IVPB (00:57)
--- NOTE | 2025-07-07 01:12 | PC.NURSE ---
CLEMENT montoya 1 G tylenol PO.
[2025-07-07] MEDS: ACETAMINOPHEN 500 MG TABLET 1000 MG PO (01:15)
[2025-07-07 02:06] VITALS: BP 110/79; PULSE 60; RESP 14; O2SAT 98
== END 2025-07-07 02:09 | disposition home or self-care (01) ==
PROVIDERS: Emergency Provider Emergency Medicine; PCP Nurse Practitioner Family
DX: L03.211 Cellulitis of face (principal); N39.0 Urinary tract infection, site not specified; R20.2 Paresthesia of skin; I10 Essential (primary) hypertension; E03.9 Hypothyroidism, unspecified; E78.00 Pure hypercholesterolemia, unspecified; E55.9 Vitamin D deficiency, unspecified; J45.20 Mild intermittent asthma, uncomplicated; F41.9 Anxiety disorder, unspecified; F31.9 Bipolar disorder, unspecified; Z98.84 Bariatric surgery status; Z87.891 Personal history of nicotine dependence; Z87.442 Personal history of urinary calculi; Z90.710 Acquired absence of both cervix and uterus; Z90.79 Acquired absence of other genital organ(s); Z90.722 Acquired absence of ovaries, bilateral; Z79.899 Other long term (current) drug therapy; R00.1 Bradycardia, unspecified
CPT/HCPCS: 36415; 70450; 70496; 70498; 71045; 80053; 81001; 82948; 83605; 83735; 84145; 84484; 85025; 85610; 85730; 87040; 87077; 87086; 87186; 93005; 96365; 99284; A9270; Q9967